=== PATIENT | female | born 1950 | race Caucasian/White ===

== ENCOUNTER 2016-08-28 07:12 | Inpatient (IN) ==
[2016-08-28] MEDS ORDERED: Ipratropium/Albuterol Neb 3 ML IH ONE (07:31)
[2016-08-28] MEDS ORDERED: Dexamethasone 4 MG/ML VIAL IVP ONE (07:39)
[2016-08-28 08:00] LABS: Basophils % 0.6 %; Eosinophils # 0.1 K/mcL (0.0-0.6); Eosinophils % 1.3 %; Hematocrit 39.7 % (35.3-44.9); Hemoglobin 12.2 g/dL (11.5-15.4); Immature Granulocytes % 0.4 % (0-4); Immature Platelets 7.7 % (1.1-6.1); Lymphocytes # 0.7 K/mcL (0.6-4.6); Mean Corpuscular HGB Conc 30.7 g/dL (31.6-35.5); Mean Corpuscular Hemoglobin 24.4 pg (28.0-33.3); Mean Corpuscular Volume 79.4 fL (83.0-100.0); Mean Platelet Volume 11.9 fL (9.4-12.4); Monocytes # 0.6 K/mcL (0.0-1.3); Neutrophils # 3.3 K/mcL (1.6-8.9); Platelet Count 151 K/mcL (140-400); Red Cell Distribution Width 15.7 % (11.5-14.5); Segmented Neutrophils % 70.7 %
[2016-08-28 08:05] LABS: INR 1.2; Prothrombin Time 12.5 Seconds (9.4-12.1)
[2016-08-28 08:08] LABS: Activated Partial Thrombo Time 27.3 Seconds (26.0-36.0)
[2016-08-28 08:10] LABS: BUN/Creatinine Ratio 11 (6-26); Blood Urea Nitrogen 8 mg/dL (7-20); Calcium 9.2 mg/dL (8.6-10.8); Carbon Dioxide 27 mEq/L (19-29); Chloride 92 mEq/L (98-109); Glucose 195 mg/dL (70-99); Osmolality,Calculated 268 (280-300); Potassium 4.5 mEq/L (3.5-4.5); Sodium 127 mEq/L (136-145); eGFR For African Americans > 60 (> 60); eGFR For Non-African Americans > 60 (> 60)
--- NOTE | 2016-08-28 08:23 | Emergency Department Note ---
Disposition Clinical Impression: Acute exacerbation of chronic obstructive airways disease Disposition: Admitted As Inpatient Condition: Fair Referrals: Rosa Whitt CNP [Primary Care Provider] - Forms: ED Satisfaction Letter SOB HPI - General Chief Complaint: ED Shortness of Breath/Dyspnea Stated Complaint: CHAITANYA/Chest Pain Source: patient, EMS Limitations: no limitations Nursing Notes Reviewed: Yes Vital Signs Reviewed: Yes - History of Present Illness Patient is a 65-year-old elderly white female who is brought to us by EMS this morning for complaints of gradually worsening shortness of breath. Patient states that she started with some mild upper respiratory symptoms including nasal congestion and nonproductive occasional cough about 5 days ago. Patient states since that time she has had gradually worsening shortness of breath increased wheezing has been using her inhalers more frequently and then this morning just felt lightheaded with standing and ambulating in association with worsening shortness of breath. Patient states she has had fleeting intermittent substernal chest discomfort at times over the past 4 days. Patient states the pain last for seconds and is usually generalized in nature and nonradiating not associated with any diaphoresis, nausea, vomiting, abdominal pain or flank pain. Patient is on home O2 at home anywhere from 3-4 L at all times. Patient was hypoxic on arrival at 84% but placed on her home O2 by nasal cannula and is saturating at 93 and 94% currently. Patient with mild increased work of breathing and some conversational dyspnea at bedside. Patient denies any history of congestive heart failure, but states that she has had a heart attack in the past. Currently patient denies any form of chest pain or pressure at this time. Patient denies any fevers or chills associated with her shortness of breath this week. Patient was not seen by her primary care physician and has not been on outpatient medications for her symptoms. Pt Subjective Complaint: shortness of breath, chest pain Onset (ago): day(s) (4) Context: recent illness (recent preceding URI 5 d ago) Severity: moderate Consistency/Duration: constant Improves with: oxygen - Related Data Previous Rx's Medication Instructions Recorded Azithromycin [Zithromax] 250 mg PO DAILY #6 tablet 01/11/15 PredniSONE [Prednisone] 10 mg PO 1-3XD #18 tablet 01/11/15 Allergies Allergy/AdvReac Type Severity Reaction Status Date / Time Hydromorphone [From Dilaudid] Allergy Itching Verified 01/11/15 12:34 All systems ED: reviewed and negative except as stated. Constitutional: Denies: fever, chills Cardiovascular: Reports: chest pain, dyspnea on exertion. Denies: palpitations , orthopnea, syncope, paroxysmal nocturnal dyspnea Respiratory: Reports: cough, dyspnea, wheezes. Denies: hemoptysis, stridor, sputum production Gastrointestinal: Denies: abdominal pain, nausea, vomiting, diarrhea Genitourinary: Denies: urgency, dysuria, frequency Musculoskeletal: Denies: back pain, neck pain Integumentary: Denies: rash Neurological: Denies: headache, weakness, numbness, paresthesias Psychiatric: Denies: anxiety, depression Hematological/Lymphatic: Denies: easy bleeding, easy bruising Allergic/Immunologic: Denies: facial swelling, urticaria Past Medical History - Past Medical History Medical history: Reports: COPD, diabetes, hypertension, myocardial infarction Surgical history: Reports: cholecystectomy Psychiatric history: Reports: no psych history - Social History Smoking Status: Former smoker Smokeless Tobacco Status: No Alcohol use: Reports: rarely, occasionally Drug use: Reports: none Physical Exam - General Limitations: no limitations General appearance: alert (Patient with mild respiratory distress or conversational dyspnea on exam.) - Head Head exam: atraumatic, normocephalic - Eye Eye exam: Present: normal appearance, PERRL, EOMI - ENT ENT exam: normal exam, normal oropharynx, mucous membranes moist - Neck Neck exam: Present: normal inspection, full ROM. Absent: lymphadenopathy - Chest Chest inspection: Present: normal inspection, symmetric chest wall rise, tenderness - Respiratory Respiratory exam: Present: other (Course breath sounds throughout both lung plasencia bilaterally with some faint expiratory wheezing.) - Cardiovascular Cardiovascular exam: Present: regular rate, normal rhythm, normal heart sounds - Abdominal Exam Abdominal exam: Present: soft, Non-Tender, normal bowel sounds. Absent: guarding, rebound, rigidity - Rectal Exam Rectal exam: Present: deferred - Extremities Exam Extremities exam: Present: normal inspection, full ROM, normal capillary refill. Absent: tenderness, pedal edema - Back Exam Back exam: Present: normal inspection. Absent: CVA tenderness (R), CVA tenderness (L) - Neurological Exam Neurological exam: Present: alert, oriented X3, CN II-XII intact, reflexes normal. Absent: normal gait, motor sensory deficit - Psychiatric Psychiatric exam: Present: normal affect, normal mood - Skin Skin exam: Present: warm, dry. Absent: diaphoresis Course Course Narrative: Patient was initially placed on nasal cannula oxygen at her home O2 level on arrival. Her oxygen saturation increased from 84% to 93% with decreased work of breathing. Patient with some conversational dyspnea but can speak in full sentences. Patient denies any chest discomfort on arrival complaining of shortness of breath and nonproductive cough that worsened over the past 4 days. Patient afebrile and her blood pressure and heart rate are stable on initial assessment. Initiation of portal chest x-ray, breathing treatments and steroids , and lab evaluation initiated. Vital Signs Temperature 98.4 F 08/28/16 07:14 Pulse Rate 82 08/28/16 07:14 Respiratory Rate 20 08/28/16 07:14 Blood Pressure 158/71 08/28/16 07:14 O2 Sat by Pulse Oximetry 84 L 08/28/16 07:14 Temperature 98.4 F 08/28/16 07:14 Pulse Rate 78 08/28/16 08:30 Respiratory Rate 18 08/28/16 08:30 Blood Pressure 163/90 08/28/16 08:30 O2 Sat by Pulse Oximetry 98 08/28/16 08:30 Oxygen Delivery Oxygen Delivery Nasal Cannula Shortness of Breath/Dyspnea - MDM Narrative Medical decision making narrative: Following serial aerosols and steroids in the emergency department patient is much improved at this time. Patient right now has resolution of her conversational dyspnea, O2 sats are 95-96% on home O2 levels. Patient still denying any chest pain or discomfort at this time and is resting more comfortably. I did cover the patient with a dose of IV Levaquin and will admit to the hospitalist service for acute exacerbation of COPD. Chest x-ray is clear no evidence of infiltrates or pulmonary edema. Remainder of labs including a troponin is within normal limits. Patient is clinically improved at this time. Discussed with family at bedside plan to admit patient for further evaluation and treatment. Laboratory Results WBC 4.7 K/mcL (4.3-11.1) 08/28/16 07:51 RBC 5.00 M/mcL (3.82-4.97) H 08/28/16 07:51 Hgb 12.2 g/dL (11.5-15.4) 08/28/16 07:51 Hct 39.7 % (35.3-44.9) 08/28/16 07:51 MCV 79.4 fL (83.0-100.0) L 08/28/16 07:51 MCH 24.4 pg (28.0-33.3) L 08/28/16 07:51 MCHC 30.7 g/dL (31.6-35.5) L 08/28/16 07:51 RDW 15.7 % (11.5-14.5) H 08/28/16 07:51 Plt Count 151 K/mcL (140-400) 08/28/16 07:51 MPV 11.9 fL (9.4-12.4) 08/28/16 07:51 Immature Gran % 0.4 % (0-4) 08/28/16 07:51 Seg Neutrophils % 70.7 % 08/28/16 07:51 Lymphocytes % 14.0 % 08/28/16 07:51 Monocytes % 13.0 % 08/28/16 07:51 Eosinophils % 1.3 % 08/28/16 07:51 Basophils % 0.6 % 08/28/16 07:51 Neutrophils # 3.3 K/mcL (1.6-8.9) 08/28/16 07:51 Lymphocytes # 0.7 K/mcL (0.6-4.6) 08/28/16 07:51 Monocytes # 0.6 K/mcL (0.0-1.3) 08/28/16 07:51 Eosinophils # 0.1 K/mcL (0.0-0.6) 08/28/16 07:51 Basophils # 0.0 K/mcL (0.0-0.2) 08/28/16 07:51 Immature Plt Fraction 7.7 % (1.1-6.1) H 08/28/16 07:51 PT 12.5 Seconds (9.4-12.1) H 08/28/16 07:51 INR 1.2 08/28/16 07:51 APTT 27.3 Seconds (26.0-36.0) 08/28/16 07:51 Sodium 127 mEq/L (136-145) L 08/28/16 07:51 Potassium 4.5 mEq/L (3.5-4.5) 08/28/16 07:51 Chloride 92 mEq/L (98-109) L 08/28/16 07:51 Carbon Dioxide 27 mEq/L (19-29) 08/28/16 07:51 BUN 8 mg/dL (7-20) 08/28/16 07:51 Creatinine 0.75 mg/dL (0.57-1.11) 08/28/16 07:51 Est GFR ( Amer) > 60 (> 60) 08/28/16 07:51 Est GFR (Non-Af Amer) > 60 (> 60) 08/28/16 07:51 BUN/Creatinine Ratio 11 (6-26) 08/28/16 07:51 Glucose 195 mg/dL (70-99) H 08/28/16 07:51 Calculated Osmolality 268 (280-300) L 08/28/16 07:51 Lactic Acid 0.8 mmol/L (0.5-2.2) 08/28/16 08:00 Calcium 9.2 mg/dL (8.6-10.8) 08/28/16 07:51 Troponin I 0.01 ng/mL (0-0.03) 08/28/16 07:51 B-Natriuretic Peptide 97 pg/mL (0-100) 08/28/16 07:51 Impressions Chest X-Ray 08/28/16 07:31 IMPRESSION: Hypoaeration with no acute abnormality. D/ / Raphael Meier MD / Raphael Meier MD Interpreting Provider: Raphael Meier MD - Differential Diagnosis Likely: acute exacerbation of chronic obstructive airways disease, congestive heart failure, pneumonia, arrhythmia - Medical Records Medical records reviewed: Yes I reviewed the patient's medical records. - Lab Data Lab results reviewed: Yes I reviewed the patient's lab results. Result diagrams: 08/28/16 07:51 08/28/16 07:51 Lab Results 08/28/16 08/28/16 08/28/16 Range/Units 07:51 07:51 07:51 WBC 4.7 (4.3-11.1) K/mcL RBC 5.00 H (3.82-4.97) M/mcL Hgb 12.2 (11.5-15.4) g/dL Hct 39.7 (35.3-44.9) % MCV 79.4 L (83.0-100.0) fL MCH 24.4 L (28.0-33.3) pg MCHC 30.7 L (31.6-35.5) g/dL RDW 15.7 H (11.5-14.5) % Plt Count 151 (140-400) K/mcL MPV 11.9 (9.4-12.4) fL Immature Gran % 0.4 (0-4) % Seg Neutrophils % 70.7 % Lymphocytes % 14.0 % Monocytes % 13.0 % Eosinophils % 1.3 % Basophils % 0.6 % Neutrophils # 3.3 (1.6-8.9) K/mcL Lymphocytes # 0.7 (0.6-4.6) K/mcL Monocytes # 0.6 (0.0-1.3) K/mcL Eosinophils # 0.1 (0.0-0.6) K/mcL Basophils # 0.0 (0.0-0.2) K/mcL Immature Plt Fraction 7.7 H (1.1-6.1) % PT 12.5 H (9.4-12.1) Seconds INR 1.2 APTT 27.3 (26.0-36.0) Seconds Sodium 127 L (136-145) mEq/L Potassium 4.5 (3.5-4.5) mEq/L Chloride 92 L (98-109) mEq/L Carbon Dioxide 27 (19-29) mEq/L BUN 8 (7-20) mg/dL Creatinine 0.75 (0.57-1.11) mg/dL Est GFR ( Amer) > 60 (> 60) Est GFR (Non-Af Amer) > 60 (> 60) BUN/Creatinine Ratio 11 (6-26) Glucose 195 H (70-99) mg/dL Calculated Osmolality 268 L (280-300) Lactic Acid (0.5-2.2) mmol/L Calcium 9.2 (8.6-10.8) mg/dL Troponin I (0-0.03) ng/mL B-Natriuretic Peptide (0-100) pg/mL 08/28/16 08/28/16 08/28/16 Range/Units 07:51 07:51 08:00 WBC (4.3-11.1) K/mcL RBC (3.82-4.97) M/mcL Hgb (11.5-15.4) g/dL Hct (35.3-44.9) % MCV (83.0-100.0) fL MCH (28.0-33.3) pg MCHC (31.6-35.5) g/dL RDW (11.5-14.5) % Plt Count (140-400) K/mcL MPV (9.4-12.4) fL Immature Gran % (0-4) % Seg Neutrophils % % Lymphocytes % % Monocytes % % Eosinophils % % Basophils % % Neutrophils # (1.6-8.9) K/mcL Lymphocytes # (0.6-4.6) K/mcL Monocytes # (0.0-1.3) K/mcL Eosinophils # (0.0-0.6) K/mcL Basophils # (0.0-0.2) K/mcL Immature Plt Fraction (1.1-6.1) % PT (9.4-12.1) Seconds INR APTT (26.0-36.0) Seconds Sodium (136-145) mEq/L Potassium (3.5-4.5) mEq/L Chloride (98-109) mEq/L Carbon Dioxide (19-29) mEq/L BUN (7-20) mg/dL Creatinine (0.57-1.11) mg/dL Est GFR ( Amer) (> 60) Est GFR (Non-Af Amer) (> 60) BUN/Creatinine Ratio (6-26) Glucose (70-99) mg/dL Calculated Osmolality (280-300) Lactic Acid 0.8 (0.5-2.2) mmol/L Calcium (8.6-10.8) mg/dL Troponin I 0.01 (0-0.03) ng/mL B-Natriuretic Peptide 97 (0-100) pg/mL - Radiology Data Radiology results reviewed: Yes I reviewed the patient's radiology results. - EKG Data EKG attestation: Yes I reviewed and interpreted this EKG. EKG results narrative: EKG interpreted by myself without benefit of formal cardiology interpretation showing a normal sinus rhythm at [address] or T-wave changes appreciated, some nonspecific changes are noted. Prior EKG from 01/11/2015 shows no significant change from today's EKG Critical Care Time Critical Care Time: Yes Total Critical Care Time: 30 Attestation: The high probability of a clinically significant, sudden or life threatening deterioration of the [resp] system(s) required my full and direct attention, intervention and personal management. The aggregate critical care time was [30] minutes. This time is in addition to time spent performing reported procedures but includes the following: [X] Data Review and interpretation [X] Patient assessment and monitoring of vital signs [X] Documentation [X] Medication orders and management
[2016-08-28] MEDS ORDERED: Albuterol 2.5 MG/3 ML NEBULIZER IH ONE (08:30)
[2016-08-28] MEDS ORDERED: Levofloxacin 500 MG/100 ML 500 MG/100 ML BAG IVPB ONE (09:09)
[2016-08-28] MEDS ORDERED: Naloxone 0.4 MG/ML INJ IVP PRN (11:27)
[2016-08-28] MEDS ORDERED: Albuterol 2.5 MG/3 ML NEBULIZER IH PRN (11:31)
[2016-08-28] MEDS ORDERED: *HR* Dextrose 50 % in Water (Syg) 50 ML SYRINGE IVP PRN (11:33)
[2016-08-28] MEDS ORDERED: Dextrose Gel 15 GM PO PRN ×2 (11:33)
[2016-08-28] MEDS ORDERED: Furosemide 40 MG/4 ML VIAL IVP ONE (14:41)
[2016-08-28 15:21] LABS: Bilirubin,Urine Small (Negative); Blood,Urine Negative (Negative); Clarity,Urine Cloudy (Clear); Color,Urine Yellow (Yellow); Glucose,Urine (UA) 250 mg/dL (Normal); Ketones,Urine Trace mg/dL (Negative); Leukocyte Esterase,Urine Moderate (Negative); Nitrite,Urine Negative (Negative); Protein,Urine 30 mg/dL (Neg-Trace); Specific Gravity,Urine 1.025 (1.010-1.025); Urobilinogen,Urine Normal (Normal)
[2016-08-28 15:22] LABS: Bacteria,Urine Few per hpf (None-Few); Squamous Epithelial Cell,Urine Many per lpf (None-Few); WBC,Urine 50-100 per hpf (0-3)
[2016-08-28 15:27] LABS: RBC,Urine 0-3 per hpf (0-3)
[2016-08-28 15:29] LABS: Creatinine,Urine 172 mg/dL
[2016-08-28 15:31] LABS: Sodium, Urine < 20.0 mEq/L
[2016-08-28] MEDS: MethylPREDNISolone 40 MG/ML VIAL IVP SCH ×2 (15:38→23:21)
[2016-08-28 15:49] LABS: Osmolality,Urine 647 mOsm/kg (300-1090)
[2016-08-28] MEDS: Ipratropium/Albuterol Neb 3 ML IH SCH ×2 (16:11→23:04)
[2016-08-28] MEDS: Insulin LISPRO 300 UNITS/3 ML VIAL SQ SCH ×2 (16:56→20:53)
--- NOTE | 2016-08-28 19:07 | Internal Med History&Physical ---
Date of Encounter: 08/28/16 Time of Encounter: 10:00 Assessment and Plan (1) Acute and chronic respiratory failure with hypoxia Current visit: Yes Status: Acute 1 patient presented with increasing shortness of breath upon presentation patient's was 84%. The patient was placed on oxygen and states he did improve she appeared to be to In mild respiratory distress. She was given breathing treatments as well as IV steroids arrest or status did improve. Patient has had symptoms of upper respiratory infection as well as been exposed to sick contacts. Patient has also history of CHF as well as COPD oxygen dependency. I suspect her respiratory failure is multifactorial with both CHF and COPD contributing to her failure. We will continue with oxygen and titrate to maintain SPO2 greater than 92% 2 continue with bronchodilators as well as steroids will continue with IV Levaquin 3 we will obtain sputum culture as well as viral panel 4. IV Lasix (2) Hyponatremia Current visit: Yes Status: Acute 1. Hypertonic hypervolemic hyponatremia The patient's sodium was 127 presentation. Upon review of records appears patient's baseline is 135. I suspect this is related to fluid overload she does have a history of CHF. Patient's serum os is 285 urine on 697 urine sodium is less than 20. Will place patient on fluid restrictions 1500 mL's we will give IV Lasix we will continue to monitor sodium levels there are no neurological changes at this time (3) CHF (congestive heart failure) Current visit: Yes Status: Acute 1 patient does have a history of congestive heart failure her BMP was 97 she is not having any lower extremity edema however she has complained of abdominal bloating. We will obtain cardiac echo will place patient on fluid restriction 2 we will give IV Lasix 3 monitor intake and output 4 daily weights Qualifiers: Congestive heart failure type: diastolic Congestive heart failure chronicity: chronic Qualified Code(s): I50.32 - Chronic diastolic (congestive ) heart failure (4) Diabetes mellitus Current visit: Yes Status: Acute 1 patient has history of diabetes she is on oral antidiabetics at home. We will hold those for now will place patient on Accu-Cheks before meals and at bedtime with sliding scale insulin goal is to maintain postprandial less than 180 2 diabetic diet Qualifiers: Diabetes mellitus type: type 2 Diabetes mellitus complication status: without complication Diabetes mellitus mcc insulin use: without moth exterminator use Qualified Code(s): E11.9 - Type 2 diabetes mellitus without complications (5) Chest pain Current visit: Yes Status: Acute 1 patient has been experiencing intermittent chest pain which appears to be relieved with rest. First set of cardiac troponins are negative patient did have a cardiac stress last year however was unable to complete due to increasing shortness of breath. We will continue to cycle cardiac troponins 2 continuous cardiac monitoring and obtain EKG in a.m. 3 oxygen as needed to maintain SP tube remained in 92% 4 nitroglycerin as needed for chest pain 5 obtain cardiac echo 6 consult cardiology as needed Qualifiers: Chest pain type: unspecified Qualified Code(s): R07.9 - Chest pain, unspecified (6) DVT prophylaxis Current visit: Yes Status: Acute (7) COPD (chronic obstructive pulmonary disease) Current visit: Yes Status: Acute 1 patient has history of chronic COPD with oxygen dependency. We will continue with oxygen titrated to maintain SPO2 greater than 92% 2 continue with DuoNeb's 3 steroid taper 4 Levaquin Qualifiers: COPD type: unspecified COPD Qualified Code(s): J44.9 - Chronic obstructive pulmonary disease, unspecified Internal Medicine - H&P: HPI Chief complaint: Shortness of breath Admitted From: Emergency Dept Plans for Post Hospital Care: Home History of present illness: Ms. Panchal is a 65 year old female past history of COPD oxygen dependent. coronary artery disease diabetes hyperlipidemia CHF. Patient has had some mild upper respiratory symptoms including nasal congestion and nonproductive cough and increasing shortness of breath on exertion for proximally 5 days. She does admit to some sick exposures she denies any fevers chills nausea vomiting or diarrhea. Her shortness of breath has gradually worsened and is not relieved with any inhalers or oxygen use use. This a.m. she felt lightheaded short of breath on exertion. She did experience some intermittent substernal chest pain that occurred during exertion. No associated symptoms of diaphoresis and jaw pain. Patient presented to the ER with the above symptoms. According to ER records patient did present hypoxic with PO2 84% on arrival. She was placed on nasal cannula at 3 L oxygen saturation improved to 9394%. She did appear to be in mild respiratory distress and was experiencing conversational dyspnea. Chest x-ray is clear with no evidence of infiltrates or pulmonary edema. Lab work revealed no leukocytosis troponin was within normal limits she was afebrile. Patient was given breathing treatments as well as steroids and IV Levaquin. Her respiratory status did improve. She is admitted for further work up evaluation. Presently patient does not appear to be in some mild respiratory distress again presents with conversational dyspnea O2 sats are 9495% on 3 L nasal cannula she does have some moist breath sounds and a moist nonproductive cough. Denies any chest pain at this time Patient denies any recent weight gain or loss. She also denies any lower extremity swelling however her abdomen does appear bloated which she states is new. Lung sounds have coarse rhonchi throughout heart sounds with S1-S2 regular rate no gallops murmur or clicks noted she appears to be hemodynamically stable at this time. I did review this case with who agrees with plan. Past Med Surg Social Fam HX - Past Medical History Medical history: COPD, diabetes, hypertension, myocardial infarction Psychiatric history: no psych history - Past Surgical History Surgical History: cholecystectomy - Social History Smoking Status: Former smoker Smokeless Tobacco Status: No Alcohol use: rarely, occasionally Drug use: none - Family History Father Maternal Hx Family Cancer: Yes Internal Medicine - H&P: Meds Albuterol Sulfate [Ventolin Hfa] 2 puff IH Q4H PRN 08/28/16 [History] Ferrous Sulfate [Iron] 325 mg PO DAILY 08/28/16 [History] Fluticasone/Salmeterol [Advair 250-50 Diskus] 1 puff IH BID 08/28/16 [History] Folic Acid 1 mg PO DAILY 08/28/16 [History] Lisinopril [Zestril] 20 mg PO DAILY 08/28/16 [History] Metformin HCl [Metformin HCl ER] 500 mg PO DAILY 08/28/16 [History] Umeclidinium Ruby [Incruse Ellipta] 1 puff IH DAILY 08/28/16 [History] Allergies Hydromorphone [From Dilaudid] Allergy (Verified 01/11/15 12:34) Itching All Systems PM: A 10-system review of systems was performed and is negative for pertinent findings except as documented above in the HPI. - Constitutional Constitutional: weakness, no chills, no fever(s), no night sweats - EENT Eyes: no change in vision, no discharge, no pain, no photophobia - Cardiovascular Cardiovascular ROS IM: chest pain, dyspnea - Respiratory Respiratory: cough, dyspnea - Gastrointestinal Gastrointestinal: bloating - Genitourinary Genitourinary: no change in urinary stream, no dysuria, no flank pain, no hematuria - Musculoskeletal Musculoskeletal ROS IM: no numbness, no tingling - Integumentary Integumentary IM: no rash, no unusual bruising - Neurological Neurological ROS: no confusion, no convulsions, no focal weakness, no numbness, no tingling, no tremor(s) - Hematologic/Lymphatic Hematologic/Lymphatic: no easy bruising - Constitutional Vitals: Temp Pulse Resp BP Pulse Ox 98.3 F 68 18 142/83 95 08/28/16 15:07 08/28/16 15:07 08/28/16 16:11 08/28/16 16:11 08/28/16 16:11 General appearance: Present: mild distress, A&O X 3, morbidly obese - Head Head exam: Present: atraumatic, normocephalic - Eye Eye exam: Present: PERRL, conjuntiva pink, sclera anicteric Pupils: Present: PERRL - Respiratory Respiratory exam: Present: CTAB. Absent: accessory muscle use, rales, rhonchi, wheezes - Cardiovascular Cardiovascular exam: Present: RRR, +S1, +S2. Absent: diastolic murmur, gallop, rubs, systolic murmur - GI/Abdominal GI/Abdominal exam: Present: normal bowel sounds, soft, no peritoneal signs. Absent: distended, tenderness - Extremities Exam Extremities exam: Present: warm, radial pulses palpable and symetrical. Absent : calf tenderness, cyanotic, pedal edema - Neurological Exam Neurological exam: Present: CN II-XII intact, oriented X3, no focal deficits. Absent: pronater drift, facial droop, speech deficit - Skin Skin exam: Present: dry, intact Internal Med - H&P Results - Labs CBC & Chem 7: 08/28/16 07:51 08/28/16 07:51 Labs: Cardiac Enzymes 08/28/16 Range/Units 13:45 Troponin I 0.02 (0-0.03) ng/mL Urine 08/28/16 Range/Units 15:10 Urine Color Yellow (Yellow) Urine Clarity Cloudy A (Clear) Urine pH 6.0 (5.0-8.0) pH Units Ur Specific [place] 1.025 (1.010-1.025) Urine Protein 30 H (Neg-Trace) mg/dL Urine Glucose (UA) 250 H (Normal) mg/dL - EKG Data EKG shows normal: sinus rhythm Rate: normal - EKG Data Prior EKG available for review: yes When compared to previous EKG: there is no significant change - Diagnostic Studies Other Images Additional comments: Chest X-Ray 08/28/16 07:31 IMPRESSION: Hypoaeration with no acute abnormality. D/ / Raphael Meier MD / Raphael Meier MD Interpreting Provider: Raphael Meier MD - VTE Documentation of Mechanical Device: Intermittent pneumatic compression device
[2016-08-28 20:34] LABS: Adenovirus Not Detected (Not Detect); Bordetella Pertussis Not Detected (Not Detect); Chlamydophila pneumoniae Not Detected (Not Detect); Coronavirus 229E Not Detected (Not Detect); Coronavirus HKU1 Not Detected (Not Detect); Coronavirus NL63 Not Detected (Not Detect); Coronavirus OC43 Not Detected (Not Detect); Human Metapneumovirus Not Detected (Not Detect); Human Rhinovirus/Enterovirus Not Detected (Not Detect); Influenza A Subtype 2009 H1 Not Detected (Not Detect); Influenza A Untypeable Not Detected (Not Detect); Influenza B Not Detected (Not Detect); Mycoplasma pneumoniae Not Detected (Not Detect); Parainfluenza Virus 1 Not Detected (Not Detect); Parainfluenza Virus 2 Not Detected (Not Detect); Parainfluenza Virus 3 Not Detected (Not Detect); Parainfluenza Virus 4 Not Detected (Not Detect); Respiratory Syncytial Virus Not Detected (Not Detect)
[2016-08-29] MEDS: Ipratropium/Albuterol Neb 3 ML IH SCH ×4 (05:17→22:39)
[2016-08-29 07:49] LABS: Hematocrit 39.3 % (35.3-44.9); Hemoglobin 11.8 g/dL (11.5-15.4); Immature Granulocytes % 0.3 % (0-4); Immature Platelets 7.9 % (1.1-6.1); Lymphocytes # 0.3 K/mcL (0.6-4.6); Lymphocytes % 9.9 %; Mean Corpuscular Hemoglobin 24.4 pg (28.0-33.3); Mean Corpuscular Volume 81.2 fL (83.0-100.0); Mean Platelet Volume 11.5 fL (9.4-12.4); Monocytes # 0.2 K/mcL (0.0-1.3); Monocytes % 6.4 %; Neutrophils # 2.9 K/mcL (1.6-8.9); Platelet Count 183 K/mcL (140-400); Red Blood Count 4.84 M/mcL (3.82-4.97); Red Cell Distribution Width 15.3 % (11.5-14.5); Segmented Neutrophils % 83.4 %
[2016-08-29] MEDS ORDERED: INCRUSE ELLIPTA IH SCH (09:00)
[2016-08-29] MEDS ORDERED: Lisinopril 20 MG TABLET PO SCH (09:00)
[2016-08-29 09:07] LABS: BUN/Creatinine Ratio 17 (6-26); Blood Urea Nitrogen 16 mg/dL (7-20); Calcium 9.4 mg/dL (8.6-10.8); Carbon Dioxide 32 mEq/L (19-29); Chloride 91 mEq/L (98-109); Chol/HDL Ratio 5.3 (0-4.9); Cholesterol 171 mg/dL (< 200); Glucose 242 mg/dL (70-99); HDL Cholesterol 32 mg/dL (40-59); LDL Cholesterol,Calculated 122 mg/dL (0-99); Osmolality,Calculated 279 (280-300); Potassium 5.3 mEq/L (3.5-4.5); Sodium 130 mEq/L (136-145); Triglycerides 87 mg/dL (< 150); eGFR For African Americans > 60 (> 60); eGFR For Non-African Americans 59 (> 60)
[2016-08-29] MEDS: Insulin LISPRO 300 UNITS/3 ML VIAL SQ SCH ×4 (11:19→22:01)
[2016-08-29] MEDS: Levofloxacin 750 MG/150 ML 750 MG/150 ML BAG IVPB SCH ×2 (11:22→15:51)
[2016-08-29] MEDS: MethylPREDNISolone 40 MG/ML VIAL IVP SCH ×2 (11:22→11:45)
[2016-08-29] MEDS: Folic Acid 1 MG TABLET PO SCH (11:23)
[2016-08-29] MEDS: Budesonide/Formoterol 80/4.5 MDI IH SCH ×3 (15:30→22:40)
[2016-08-29] MEDS: Furosemide 40 MG/4 ML VIAL IVP SCH (15:50)
--- NOTE | 2016-08-29 17:16 | ECHO - Doppler Report ---
Echocardiogram Name: Lacey Panchal Date of Study: 08/29/2016 Date: 1950 Ht: 64.0 in Medical Record#: [id number] Age: 65 Wt: 265.0 lb Gender: Female BSA: 2.2 Order #: [id number] Location: [facility] Room #: [facility] Reading Physician: Rodríguez Perez MD, [facility] Legal Coordinator: Ghada Monge RVT Ordering Physician: Kimberley Cisneros CNP Primary Physician: Rosa Whitt CNP Indications: Chest pain Impressions: Technically sub-optimal due to poor echocardiographic windows. Normal left ventricular systolic function, LVEF 70%. Mild left ventricular diastolic dysfunction. Normal right ventricular size and function. No significant valvular dysfunction. Unable to estimate RVSP due to lack of TR jet. Left Ventricular Wall Motion: Rest Echo Findings All wall segments showed normal motion. Findings: Study Quality * Technically sub-optimal due to poor echocardiographic windows. ECG Findings * Normal sinus rhythm. Left Ventricle * Normal left ventricular systolic function, LVEF 70%. * Normal LV chamber size and wall thickness. * Mild left ventricular diastolic dysfunction. Right Ventricle * Normal right ventricular size and function. Left Atrium * Normal left atrial size. Right Atrium * Normal right atrial size. Aorta * Normally sized aortic root. Pericardium * There is no pericardial effusion present. IVC * The IVC was not visualized. Aortic Valve * Trileaflet aortic valve. * Mildly sclerotic aortic valve leaflets. * Normal aortic valve function. Mitral Valve * Mild mitral annular calcification * Normal mitral valve function. Tricuspid Valve * Tricuspid valve not well visualized. * Normal tricuspid valve function. * Unable to estimate RVSP due to lack of TR jet. Pulmonic Valve * Pulmonic valve not well visualized. * Normal pulmonic valve function. History Hypertension Diabetes Hypercholesteremia Family History of CAD 01/02/2016 a Previous Echo was performed. Measurements: BP: 123/ 83 2D Normal Values RVIDd: 3.50 cm IVSd: .90 cm 0.6 - 1.0 cm LVIDd: 4.40 cm 3.7 - 5.6 cm LVPWd: .90 cm 0.6 - 1.1 cm LVIDs: 2.50 cm 1.5 - 3.6 cm AO: 3.30 cm < 4.0 cm LA volume: 31 Mitral Valve Peak E:.77 m/sec Peak A:.95 m/sec E/A Ratio:0.8 Updated by Rodríguez Perez MD, [facility] on 08/29/2016 5:10:07 PM electronically signed on 08/29/2016 5:10:40 PM with status of Final Wall Motion [place]: 1=Normal, 2=Hypokinesis, 3=Akinesis, 4=Dyskinesis, 5=Aneurysmal, 6=Hyperkinetic, X=Not Visualized (Blank)=Missing
--- NOTE | 2016-08-29 18:21 | Internal Med Progress Note ---
Date of Encounter: 08/29/16 Time of Encounter: 11:00 - Assessment and plan (1) Acute and chronic respiratory failure with hypoxia Current Visit: Yes Status: Acute Assessment and plan: Secondary to COPD exacerbation in the setting of suspected OSMAN/OHS. Patient presented with increasing shortness of breath and SaO2 in ED was 84%. She uses 2 L of oxygen at home. Chest x-ray was negative for any acute process. Echocardiogram revealed LVEF 70%, mild LV diastolic dysfunction, unable to estimate RSVP. Influenza A PCR was positive in serum. Troponin negative 2. Slowly improving. Continue nebulizations, stop IV Solu-Medrol, start oral prednisone, Symbicort, lasix and fluid restriction. continue levaquin until results of CT chest. (2) Acute exacerbation of chronic obstructive airways disease Current Visit: Yes Status: Acute Assessment and plan: plan as above. (3) Acute diastolic heart failure Current Visit: Yes Status: Acute Assessment and plan: plan as above. (4) Diabetes mellitus Current Visit: Yes Status: Acute Assessment and plan: Fasting glucose 228, likely secondary to IV glucocorticosteroids. Stop IV Solu- Medrol. Start Levemir 10 units daily. Continue sliding scale. 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 Hypervolemic hyponatremia. Sodium today is 130. Improved after IV Lasix. (6) Hyperkalemia Current Visit: Yes Status: Acute Assessment and plan: Positive for diarrhea, use of lisinopril, Solu-Medrol Stop Kayexalate 15 g by mouth. Stop lisinopril. Recheck potassium in the afternoon. - Subjective Interval history: patient continues to have shortness of breath but it has improved since admission. - Constitutional Vitals: Temp Pulse Resp BP Pulse Ox 99.0 F 86 18 118/61 95 08/29/16 17:23 08/29/16 17:23 08/29/16 17:23 08/29/16 17:23 08/29/16 17:23 General appearance: Present: cooperative, A&O X 3, morbidly obese, pleasant, no acute distress, answers questions appropriately - Respiratory Respiratory exam: Present: decreased breath sounds, wheezes - Cardiovascular Cardiovascular exam: Present: RRR - GI/Abdominal GI/Abdominal exam: Present: normal bowel sounds, soft. Absent: distended, tenderness - Extremities Exam Extremities exam: Present: pedal edema (1+ LE edema up to the knees) - Back Exam Back exam: Absent: CVA tenderness (L), CVA tenderness (R) - Neurological Exam Neurological exam: Present: alert, oriented X3. Absent: facial droop, speech deficit - Skin Skin exam: Absent: rash Internal Medicine: Result - Labs CBC & Chem 7: 08/29/16 07:22 08/29/16 14:15 Labs: Short CBC 08/29/16 Range/Units 07:22 WBC 3.4 L (4.3-11.1) K/mcL Hgb 11.8 (11.5-15.4) g/dL Hct 39.3 (35.3-44.9) % Plt Count 183 (140-400) K/mcL Neutrophils # 2.9 (1.6-8.9) K/mcL BMP 08/29/16 08/29/16 08:12 14:15 Sodium 130 L Potassium 5.3 H 5.2 H Chloride 91 L Carbon Dioxide 32 H BUN 16 Creatinine 0.96 Glucose 242 H Calcium 9.4 Cardiac Enzymes 08/28/16 Range/Units 20:49 Troponin I 0.01 (0-0.03) ng/mL - ABG Interpretation ABG results: PT/INR, D-dimer PT 12.5 Seconds (9.4-12.1) H 08/28/16 07:51 - VTE Documentation of Mechanical Device: Graduated compression elastic hosiery Consult Discharge Plan - Plan Referrals: Rosa Whitt, [employer] [Primary Care Provider] -
[2016-08-29] MEDS: Insulin DETEMIR 100 UNIT/ML X5UNITS SQ SCH (22:03)
[2016-08-30] MEDS: Ipratropium/Albuterol Neb 3 ML IH SCH ×4 (04:33→21:53)
--- NOTE | 2016-08-30 07:36 | Electrocardiograph Report ---
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
[2016-08-30] MEDS: Furosemide 40 MG/4 ML VIAL IVP SCH (08:15)
[2016-08-30] MEDS: Levofloxacin 750 MG/150 ML 750 MG/150 ML BAG IVPB SCH (08:15)
[2016-08-30 08:16] LABS: Calcium 9.5 mg/dL (8.6-10.8); Magnesium 1.8 mg/dL (1.6-2.6)
[2016-08-30] MEDS: Folic Acid 1 MG TABLET PO SCH (08:16)
[2016-08-30] MEDS: predniSONE 20 MG TABLET PO SCH (08:16)
[2016-08-30] MEDS: Insulin LISPRO 300 UNITS/3 ML VIAL SQ SCH ×4 (08:17→21:44)
[2016-08-30] MEDS: Budesonide/Formoterol 80/4.5 MDI IH SCH ×2 (10:16→21:53)
[2016-08-30] MEDS: Insulin DETEMIR 100 UNIT/ML X5UNITS SQ SCH (12:00)
--- NOTE | 2016-08-30 14:28 | Internal Med Progress Note ---
Date of Encounter: 08/30/16 Time of Encounter: 13:00 - Assessment and plan (1) Acute respiratory failure Current Visit: Yes Status: Acute Assessment and plan: Secondary to PNA, and COPD exacerbation in the setting of suspected OSMAN/OHS. Patient presented with increasing shortness of breath and SaO2 in ED was 84%. no oxygen at home. CT chest showed patchy areas of ground-glass opacities, suspected pneumonitis. Chest x-ray was negative for any acute process. Echocardiogram revealed LVEF 70%, mild LV diastolic dysfunction, unable to estimate RSVP. Influenza A PCR was positive in serum. Troponin negative 2. Slowly improving. PAtient requiring oxygen supplementation. Continue Levaquin, nebulizations, oral prednisone, Symbicort, and fluid restriction. stop IV lasix due to jump in creatinine. Oxygen qualification in the morning. Qualifiers: Respiratory failure complication: hypoxia Qualified Code(s): J96.01 - Acute respiratory failure with hypoxia (2) PNA (pneumonia) Current Visit: Yes Status: Acute Assessment and plan: bacterial PNA. plan as above Qualifiers: Pneumonia type: due to unspecified organism Laterality: bilateral Lung location: lower lobe of lung Qualified Code(s): J18.9 - Pneumonia, unspecified organism (3) Acute exacerbation of chronic obstructive airways disease Current Visit: Yes Status: Acute Assessment and plan: plan as above. (4) Acute diastolic heart failure Current Visit: Yes Status: Acute Assessment and plan: plan as above. (5) Diabetes mellitus Current Visit: Yes Status: Acute Assessment and plan: Fasting glucose 34. continue Levemir 10 units daily. Continue sliding scale. 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 Hypervolemic hyponatremia. Improved. Sodium 134. (7) Hyperkalemia Current Visit: Yes Status: Acute Assessment and plan: resolved. secondary to use of lisinopril, and Solu-Medro. off lisinopril. - Subjective Interval history: Patient reports some improvement in her shortness of breath. no chest pain. she does not use oxygen at home. She agrees on losing weight and having a sleep study as outpatient. - Constitutional Vitals: Temp Pulse Resp BP Pulse Ox 98.0 F 79 18 100/68 92 L 08/30/16 10:39 08/30/16 10:39 08/30/16 10:39 08/30/16 10:39 08/30/16 10:39 General appearance: Present: cooperative, A&O X 3, morbidly obese, pleasant, no acute distress, answers questions appropriately - Eye Eye exam: Present: PERRL, sclera anicteric - Respiratory Respiratory exam: Present: decreased breath sounds, wheezes (minimal wheezes) - Cardiovascular Cardiovascular exam: Present: RRR - GI/Abdominal GI/Abdominal exam: Present: distended, normal bowel sounds, soft. Absent: tenderness - Extremities Exam Extremities exam: Absent: pedal edema - Back Exam Back exam: Absent: CVA tenderness (L), CVA tenderness (R) - Neurological Exam Neurological exam: Present: alert, oriented X3, no focal deficits, strengths equal and symetr throughout. Absent: facial droop, speech deficit Internal Medicine: Result - Labs CBC & Chem 7: 08/29/16 07:22 08/30/16 06:54 Labs: BMP 08/29/16 08/30/16 14:15 06:54 Sodium 134 L Potassium 5.2 H 4.0 D Chloride 90 L Carbon Dioxide 34 H BUN 26 H D Creatinine 1.13 H Glucose 142 H Calcium 9.5 - ABG Interpretation ABG results: PT/INR, D-dimer PT 12.5 Seconds (9.4-12.1) H 08/28/16 07:51 - Impressions Impressions Chest CT 08/29/16 18:26 IMPRESSION: 1. Patchy areas of ground-glass opacities likely representing pneumonitis. D/ / Dudley Parson MD / Dudley Parson MD Interpreting Provider: Dudley Parson MD - VTE Documentation of Mechanical Device: Graduated compression elastic hosiery Consult Discharge Plan - Plan Referrals: Rosa Whitt, S[employer] PIPE [employer]KER [Primary Care Provider] -
[2016-08-30] MEDS: *HR* Heparin 5,000 UNIT/ML VIAL SQ SCH (17:39)
--- NOTE | 2016-08-30 22:57 | Electrocardiograph Report ---
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
[2016-08-31] MEDS: Ipratropium/Albuterol Neb 3 ML IH SCH ×5 (04:17→20:22)
[2016-08-31 05:23] LABS: Hematocrit 39.6 % (35.3-44.9); Hemoglobin 11.6 g/dL (11.5-15.4); Immature Granulocytes % 0.7 % (0-4); Lymphocytes # 1.3 K/mcL (0.6-4.6); Lymphocytes % 28.6 %; Mean Corpuscular HGB Conc 29.3 g/dL (31.6-35.5); Mean Corpuscular Hemoglobin 24.3 pg (28.0-33.3); Mean Platelet Volume 11.5 fL (9.4-12.4); Monocytes # 0.7 K/mcL (0.0-1.3); Monocytes % 15.3 %; Platelet Count 197 K/mcL (140-400); Red Blood Count 4.77 M/mcL (3.82-4.97); Red Cell Distribution Width 15.9 % (11.5-14.5); Segmented Neutrophils % 55.4 %
[2016-08-31 05:30] LABS: Neutrophils # 2.4 K/mcL (1.6-8.9)
[2016-08-31 05:36] LABS: BUN/Creatinine Ratio 25 (6-26); Blood Urea Nitrogen 25 mg/dL (7-20); Calcium 9.5 mg/dL (8.6-10.8); Chloride 88 mEq/L (98-109); Glucose 189 mg/dL (70-99); Osmolality,Calculated 287 (280-300); Potassium 4.2 mEq/L (3.5-4.5); Sodium 134 mEq/L (136-145); eGFR For African Americans > 60 (> 60); eGFR For Non-African Americans 55 (> 60)
[2016-08-31 05:40] LABS: Carbon Dioxide 40 mEq/L (19-29)
[2016-08-31 05:55] LABS: Platelet Estimate Normal (Normal)
[2016-08-31 05:56] LABS: Large Platelets Present (Not Present); Polychromasia 1+ (Not Present)
[2016-08-31] MEDS: *HR* Heparin 5,000 UNIT/ML VIAL SQ SCH ×2 (06:16→17:39)
[2016-08-31] MEDS: predniSONE 20 MG TABLET PO SCH (08:00)
[2016-08-31] MEDS: Folic Acid 1 MG TABLET PO SCH (08:00)
[2016-08-31] MEDS: Levofloxacin 750 MG/150 ML 750 MG/150 ML BAG IVPB SCH (08:01)
[2016-08-31] MEDS: Insulin LISPRO 300 UNITS/3 ML VIAL SQ SCH ×4 (08:02→21:27)
[2016-08-31] MEDS: Insulin DETEMIR 100 UNIT/ML X5UNITS SQ SCH (08:04)
--- NOTE | 2016-08-31 09:23 | Internal Med Progress Note ---
<Gail Barajas - Last Filed: 08/31/16 15:14> Date of Encounter: 08/31/16 Time of Encounter: 09:11 - Assessment and plan (1) Acute respiratory failure with hypoxia and hypercapnia Current Visit: Yes Status: Acute Assessment and plan: Secondary to PNA, and COPD exacerbation in the setting of suspected OSMAN/OHS. Patient presented with increasing shortness of breath and SaO2 in ED was 84%. She does not use oxygen at home. CT chest showed patchy areas of ground-glass opacities, suspected pneumonitis. Chest x-ray was negative for any acute process. Echocardiogram revealed LVEF 70%, mild LV diastolic dysfunction, unable to estimate RSVP. Influenza A PCR was positive in serum. Troponin negative 2. Patient reports she is still feeling very sob this morning and she is getting tired of breathing. She is reports chills off and on over night and this morning. Patient requiring 4L oxygen today with Sp02 97%. ABG showing respiratory acidosis with metabolic alkalosis. Will place patient on BiPAP and recheck ABG in 4 hours. Continue Levaquin(day3), will add vanc to cover for post flu Staph PNA, continue DuoNebs (will increase to Q4H), Prednisone 40mg/ day PO, Symbicort, and fluid restriction. stop IV lasix due to jump in creatinine. Oxygen qualification to be done today. (2) PNA (pneumonia) Current Visit: Yes Status: Acute Assessment and plan: Patient with CT scan suspicious for PNA. Likely post flu PNA. Plan as above. Qualifiers: Pneumonia type: due to unspecified organism Laterality: bilateral Lung location: lower lobe of lung Qualified Code(s): J18.9 - Pneumonia, unspecified organism (3) Influenza A virus present Current Visit: Yes Status: Acute Assessment and plan: plan as above (4) Acute exacerbation of chronic obstructive airways disease Current Visit: Yes Status: Acute Assessment and plan: Patient with non-productive cough, sob, wheezing. Suspect patient having COPD- Exacerbation triggered by Influenza-A. Will continue plan as above. (5) Acute diastolic heart failure Current Visit: Yes Status: Acute Assessment and plan: Patient with diastolic heart failure. Patient does not appear to be volume overloaded today. Will continue to hold lasix at this time. (6) Diabetes mellitus Current Visit: Yes Status: Acute Assessment and plan: Glucose 128-242. Continue Levemir 10 units daily with corrective sliding scale. Patient has been placed on a diabetic diet. Goal sugars <180. Qualifiers: Diabetes mellitus type: type 2 Diabetes mellitus complication status: without complication Diabetes mellitus manager intermediate insulin use: without manager intermediate use Qualified Code(s): E11.9 - Type 2 diabetes mellitus without complications (7) Hyponatremia Current Visit: Yes Status: Acute Assessment and plan: Sodium was 127 on admission, likely hypervolemic hyponatremia. Improved. Sodium stable at 134. Continue to monitor. (8) Hyperkalemia Current Visit: Yes Status: Acute Assessment and plan: resolved. secondary to use of lisinopril, and Solu-Medro. Discontinued lisinopril (9) Metabolic alkalosis Current Visit: Yes Status: Acute Assessment and plan: Patient has mixed acid/base d/o. Metabolic alkalosis and respiratory acidosis. Suspect respiratory acidosis secondary to COPD exacerbation and contraction alkalosis. Will place patient on BiPap and check ABG in 4 hours. - Subjective Interval history: I have seen and examined the patient this morning. Reports she is "feeling like crap". She says she is still very short of breath. She has also been having chills over the past 24 hours. Denies headache, cp, palpitations, abdominal pain , n/v, diarrhea, constipation, or any other complaints at this time. - Constitutional Vitals: Temp Pulse Resp BP Pulse Ox 97.7 F 78 20 134/72 97 08/31/16 06:47 08/31/16 06:47 08/31/16 06:47 08/31/16 06:47 08/31/16 06:47 General appearance: Present: cooperative, A&O X 3, morbidly obese, pleasant, no acute distress, answers questions appropriately - Head Head exam: Present: atraumatic, normocephalic - Eye Eye exam: Present: PERRL, conjuntiva pink, sclera anicteric Pupils: Present: PERRL - Neck Neck exam general surgery: Present: supple, trachea midline. Absent: lymphadenopathy - Respiratory Respiratory exam: Present: decreased breath sounds (b/l), rhonchi (b/l), wheezes (scattered). Absent: accessory muscle use, rales - Cardiovascular Cardiovascular exam: Present: RRR, +S1, +S2. Absent: diastolic murmur, gallop, rubs, systolic murmur - GI/Abdominal GI/Abdominal exam: Present: normal bowel sounds, soft, no peritoneal signs. Absent: distended, tenderness - Extremities Exam Extremities exam: Present: pedal edema (trace b/l), warm, radial pulses palpable and symetrical. Absent: calf tenderness, cyanotic - Neurological Exam Neurological exam: Present: CN II-XII intact, oriented X3, no focal deficits. Absent: pronater drift, facial droop, speech deficit - Skin Skin exam: Present: dry, intact Internal Medicine: Result - Labs CBC & Chem 7: 08/31/16 04:58 08/31/16 04:58 Labs: Short CBC 08/31/16 Range/Units 04:58 WBC 4.4 (4.3-11.1) K/mcL Hgb 11.6 (11.5-15.4) g/dL Hct 39.6 (35.3-44.9) % Plt Count 197 (140-400) K/mcL Neutrophils # 2.4 (1.6-8.9) K/mcL BMP 08/31/16 04:58 Sodium 134 L Potassium 4.2 Chloride 88 L Carbon Dioxide 40 H* BUN 25 H Creatinine 1.02 Glucose 189 H Calcium 9.5 - ABG Interpretation ABG results: PT/INR, D-dimer PT 12.5 Seconds (9.4-12.1) H 08/28/16 07:51 - VTE Documentation of Mechanical Device: Graduated compression elastic hosiery Consult Discharge Plan - Plan Referrals: Rosa Whitt, [employer]NAGERS [Primary Care Provider] - <Lady Car E - Last Filed: 08/31/16 17:46> - Assessment and plan (1) Acute respiratory failure Current Visit: Yes Status: Acute Qualifiers: Respiratory failure complication: hypoxia Qualified Code(s): J96.01 - Acute respiratory failure with hypoxia (2) PNA (pneumonia) Current Visit: Yes Status: Acute Qualifiers: Pneumonia type: due to unspecified organism Laterality: bilateral Lung location: lower lobe of lung Qualified Code(s): J18.9 - Pneumonia, unspecified organism (3) Acute exacerbation of chronic obstructive airways disease Current Visit: Yes Status: Acute (4) Acute diastolic heart failure Current Visit: Yes Status: Acute (5) Diabetes mellitus Current Visit: Yes Status: Acute Qualifiers: Diabetes mellitus type: type 2 Diabetes mellitus complication status: without complication Diabetes mellitus manager intermediate insulin use: without assisted use Qualified Code(s): E11.9 - Type 2 diabetes mellitus without complications (6) Hyponatremia Current Visit: Yes Status: Acute (7) Hyperkalemia Current Visit: Yes Status: Acute - Constitutional Vitals: Temp Pulse Resp BP Pulse Ox 99.2 F 80 19 160/82 93 L 08/31/16 14:50 08/31/16 14:50 08/31/16 16:22 08/31/16 14:50 08/31/16 17:12 Internal Medicine: Result - Labs CBC & Chem 7: 08/31/16 04:58 08/31/16 04:58 Labs: Short CBC 08/31/16 Range/Units 04:58 WBC 4.4 (4.3-11.1) K/mcL Hgb 11.6 (11.5-15.4) g/dL Hct 39.6 (35.3-44.9) % Plt Count 197 (140-400) K/mcL Neutrophils # 2.4 (1.6-8.9) K/mcL BMP 08/31/16 04:58 Sodium 134 L Potassium 4.2 Chloride 88 L Carbon Dioxide 40 H* BUN 25 H Creatinine 1.02 Glucose 189 H Calcium 9.5 - ABG Interpretation ABG results: ABG ABG pH 7.35 pH Units (7.32-7.45) 08/31/16 10:45 ABG pCO2 85 mmHg (35-45) H* 08/31/16 10:45 ABG pO2 61 mmHg (85-104) L 08/31/16 10:45 ABG O2 Saturation 90 % (95-98) L 08/31/16 10:45 PT/INR, D-dimer PT 12.5 Seconds (9.4-12.1) H 08/28/16 07:51 - Impressions Impressions Chest X-Ray 08/31/16 09:23 IMPRESSION: Mild blunting of left costophrenic angle, and a small pleural effusion is not excluded. Otherwise stable chest. D/ / Anastasia Vides MD / Anastasia Vides MD Interpreting Provider: Anastasia Vides MD - Attending Attestation I examined this patient and reviewed laboratory, imaging and all diagnostic data. My medical decision-making was reviewed with Alfredito MaynardReagan - Resident Physician. I agree with the documented findings, disposition and treatment plan as described above.
[2016-08-31] MEDS ORDERED: Ipratropium/Albuterol Neb 3 ML ONE (10:36)
[2016-08-31] MEDS: Budesonide/Formoterol 80/4.5 MDI IH SCH ×2 (10:46→20:22)
[2016-08-31] MEDS ORDERED: Vancomycin 2,000 MG in D5% in Water 250 ML IVPB SCH (11:00)
[2016-08-31 11:06] LABS: ABG Base Excess 17.5 mEq/L (-2.0 to 3.0); ABG HCO3 46.9 mEQ/L (21-27); ABG Oxygen Saturation 90 % (95-98); ABG PH 7.35 pH Units (7.32-7.45); ABG PO2 61 mmHg (85-104); ABG TCO2 49.5 mEq/L (20-26)
[2016-08-31 11:09] LABS: ABG PCO2 85 mmHg (35-45)
[2016-08-31 11:11] LABS: Blood Gas Liter Flow 3 L/MIN
[2016-08-31] MEDS ORDERED: acetaZOLAMIDE 250 MG TABLET PO ONE (11:16)
[2016-08-31] MEDS ORDERED: Vancomycin 2,000 MG in D5% in Water 500 ML IVPB ONE (11:52)
[2016-08-31 17:45] LABS: ABG Base Excess 13.6 mEq/L (-2.0 to 3.0); ABG HCO3 39.8 mEQ/L (21-27); ABG Oxygen Saturation 97 % (95-98); ABG PCO2 56 mmHg (35-45); ABG PH 7.46 pH Units (7.32-7.45); ABG PO2 83 mmHg (85-104); ABG TCO2 41.5 mEq/L (20-26)
[2016-08-31 17:46] LABS: Blood Gas FiO2 32 %
[2016-09-01] MEDS: Ipratropium/Albuterol Neb 3 ML IH SCH ×7 (00:13→23:03)
[2016-09-01] MEDS: Vancomycin 1,500 MG in D5% in Water 250 ML IVPB SCH ×2 (00:51→12:31)
[2016-09-01 05:19] LABS: Hematocrit 38.2 % (35.3-44.9); Hemoglobin 11.1 g/dL (11.5-15.4); Mean Corpuscular HGB Conc 29.1 g/dL (31.6-35.5); Mean Corpuscular Hemoglobin 23.9 pg (28.0-33.3); Mean Corpuscular Volume 82.3 fL (83.0-100.0); Mean Platelet Volume 10.8 fL (9.4-12.4); Platelet Count 189 K/mcL (140-400); Red Blood Count 4.64 M/mcL (3.82-4.97); Red Cell Distribution Width 15.9 % (11.5-14.5)
[2016-09-01 05:33] LABS: BUN/Creatinine Ratio 23 (6-26); Blood Urea Nitrogen 20 mg/dL (7-20); Calcium 9.4 mg/dL (8.6-10.8); Carbon Dioxide 38 mEq/L (19-29); Chloride 91 mEq/L (98-109); Glucose 147 mg/dL (70-99); Osmolality,Calculated 285 (280-300); Potassium 3.6 mEq/L (3.5-4.5); Sodium 135 mEq/L (136-145); eGFR For African Americans > 60 (> 60); eGFR For Non-African Americans > 60 (> 60)
[2016-09-01 05:50] LABS: Monocytes # 0.4 K/mcL (0.0-1.3); Neutrophils # 2.7 K/mcL (1.6-8.9)
[2016-09-01 05:51] LABS: Platelet Estimate Normal (Normal); Reactive Lymphocytes Present (Not Present)
[2016-09-01] MEDS: *HR* Heparin 5,000 UNIT/ML VIAL SQ SCH ×2 (06:00→17:29)
[2016-09-01] MEDS: predniSONE 20 MG TABLET PO SCH (07:21)
[2016-09-01] MEDS: Folic Acid 1 MG TABLET PO SCH (07:21)
[2016-09-01] MEDS: Levofloxacin 750 MG/150 ML 750 MG/150 ML BAG IVPB SCH (07:21)
[2016-09-01] MEDS: Insulin LISPRO 300 UNITS/3 ML VIAL SQ SCH ×3 (08:29→17:28)
[2016-09-01] MEDS: Insulin DETEMIR 100 UNIT/ML X5UNITS SQ SCH ×2 (08:29→20:50)
[2016-09-01 09:52] LABS: Alanine Aminotransferase 17 Units/L (0-55); Albumin 2.6 g/dL (3.5-5.0); Albumin/Globulin Ratio 0.7 (1.1-2.2); Alkaline Phosphatase 72 Units/L (38-126); Aspartate Amino Transferase 31 Units/L (5-34); Bilirubin,Direct 0.3 mg/dL (0.0-0.5); Bilirubin,Indirect 0.4 mg/dL (0.0-1.2); Bilirubin,Total 0.7 mg/dL (0.2-1.2); Total Protein 6.6 g/dL (6.0-8.3)
--- NOTE | 2016-09-01 10:44 | Internal Med Progress Note ---
<Gail Barajas - Last Filed: 09/01/16 11:24> Date of Encounter: 09/01/16 Time of Encounter: 10:42 - Assessment and plan (1) Acute respiratory failure with hypoxia and hypercapnia Status: Acute Assessment and plan: Secondary to PNA and COPD exacerbation in the setting of suspected OSMAN/OHS. Patient presented with increasing shortness of breath and SaO2 in ED was 84%. She does not use oxygen at home. CT chest showed patchy areas of ground-glass opacities, suspected pneumonitis. Chest x-ray was negative for any acute process. Echocardiogram revealed LVEF 70%, mild LV diastolic dysfunction, unable to estimate RSVP. Influenza A PCR was positive in serum. Troponin negative 2. 09/01: Patient is slowly improving, still requires 4 L of oxygen, less rhonchi but still significant wheezes. Reports she is feeling less SOB today. Will continue levaquin(day4), vancomycin (day2), scheduled duonebs, symbicort, mucinex, Prednisone 40mg/day, Tamiflu (day 5). Nurse to qualify home oxygen. (2) PNA (pneumonia) Status: Acute Assessment and plan: Patient with CT scan suspicious for PNA. Likely post flu PNA. Plan as above. Qualifiers: Pneumonia type: due to unspecified organism Laterality: bilateral Lung location: lower lobe of lung Qualified Code(s): J18.9 - Pneumonia, unspecified organism (3) Influenza A virus present Status: Acute Assessment and plan: plan as above (4) Acute exacerbation of chronic obstructive airways disease Status: Acute Assessment and plan: Patient with non-productive cough, sob, wheezing. Suspect patient having COPD- Exacerbation triggered by Influenza-A. Will continue plan as above. (5) Acute diastolic heart failure Status: Acute Assessment and plan: Patient with diastolic heart failure. Patient does not appear to be volume overloaded today. Will continue to hold lasix at this time. (6) Diabetes mellitus Status: Acute Assessment and plan: Glucose 189-195. Continue Levemir 10 units daily with corrective sliding scale. Patient has been placed on a diabetic diet. Goal sugars <180. Qualifiers: Diabetes mellitus type: type 2 Diabetes mellitus complication status: without complication Diabetes mellitus roller staker insulin use: without roller staker use Qualified Code(s): E11.9 - Type 2 diabetes mellitus without complications (7) Hyponatremia Status: Acute Assessment and plan: Sodium was 127 on admission, likely hypervolemic hyponatremia. Improved. Sodium stable at 135. Continue to monitor. (8) Hyperkalemia Status: Acute Assessment and plan: resolved. secondary to use of lisinopril, and Solu-Medro. Discontinued lisinopril (9) Metabolic alkalosis Status: Acute Assessment and plan: Patient has mixed acid/base d/o. Metabolic alkalosis and respiratory acidosis. Suspect respiratory acidosis secondary to COPD exacerbation and contraction alkalosis. Will place patient on BiPap and check ABG in 4 hours. 09/01: Patient refusing BiPap at this time. Bicarb 38. Spo2 94% on 4L NC. Patient is breathing comfortably at this time. Will continue to monitor =. - Subjective Interval history: I have seen and examined the patient this morning. She reports she is feeling better than she did yesterday. Her sob is better. She is no longer having chills. She continues to have a cough producing clear sputum. Denies cp, palpitaitons, wheezing, abdominal pain, diarrhea, constipation, lower extremity edema or pain. Denies any other complaints at this time. - Constitutional Vitals: Temp Pulse Resp BP Pulse Ox 98.3 F 81 16 115/66 95 09/01/16 08:00 09/01/16 08:00 09/01/16 08:00 09/01/16 08:00 09/01/16 08:00 General appearance: Present: cooperative, A&O X 3, morbidly obese, pleasant, no acute distress, answers questions appropriately - Head Head exam: Present: atraumatic, normocephalic - Eye Eye exam: Present: PERRL, conjuntiva pink, sclera anicteric Pupils: Present: PERRL - Neck Neck exam general surgery: Present: supple, trachea midline. Absent: lymphadenopathy - Respiratory Respiratory exam: Present: decreased breath sounds (b/l), wheezes (wheezing throughout b/l lung plasencia). Absent: accessory muscle use, rales, rhonchi - Cardiovascular Cardiovascular exam: Present: distant heart sounds, RRR, +S1, +S2. Absent: diastolic murmur, gallop, rubs, systolic murmur - GI/Abdominal GI/Abdominal exam: Present: normal bowel sounds, soft, no peritoneal signs. Absent: distended, tenderness - Extremities Exam Extremities exam: Present: warm, radial pulses palpable and symetrical. Absent : calf tenderness, cyanotic, pedal edema - Back Exam Back exam: Present: normal inspection. Absent: rash noted, tenderness - Neurological Exam Neurological exam: Present: CN II-XII intact, oriented X3, no focal deficits. Absent: pronater drift, facial droop, speech deficit - Skin Skin exam: Present: dry, intact Internal Medicine: Result - Labs CBC & Chem 7: 09/01/16 04:57 09/01/16 04:57 Labs: Short CBC 09/01/16 Range/Units 04:57 WBC 5.1 (4.3-11.1) K/mcL Hgb 11.1 L (11.5-15.4) g/dL Hct 38.2 (35.3-44.9) % Plt Count 189 (140-400) K/mcL Neutrophils # 2.7 (1.6-8.9) K/mcL BMP 09/01/16 04:57 Sodium 135 L Potassium 3.6 Chloride 91 L Carbon Dioxide 38 H BUN 20 Creatinine 0.88 Glucose 147 H Calcium 9.4 Liver Function 09/01/16 Range/Units 04:57 Total Bilirubin 0.7 (0.2-1.2) mg/dL Direct Bilirubin 0.3 (0.0-0.5) mg/dL AST 31 (5-34) Units/L ALT 17 (0-55) Units/L Alkaline Phosphatase 72 (38-126) Units/L Albumin 2.6 L (3.5-5.0) g/dL - ABG Interpretation ABG results: ABG ABG pH 7.46 pH Units (7.32-7.45) H 08/31/16 17:30 ABG pCO2 56 mmHg (35-45) H 08/31/16 17:30 ABG pO2 83 mmHg (85-104) L 08/31/16 17:30 ABG O2 Saturation 97 % (95-98) 08/31/16 17:30 PT/INR, D-dimer PT 12.5 Seconds (9.4-12.1) H 08/28/16 07:51 - VTE Documentation of Mechanical Device: Graduated compression elastic hosiery Consult Discharge Plan - Plan Instructions: Heart Failure (DC), Diabetes Mellitus Type 2 in Adults (DC), Chronic Obstructive Pulmonary Disease (DC) Referrals: Rosa Whitt, PRESCRIPTION BENEFIT SPECIALIST [Primary Care Provider] - 09/08/16 10:00 am Prescriptions: GlipiZIDE [Glucotrol] 5 mg PO BIDWM #60 tablet GuaiFENesin ER [Mucinex] 600 mg PO BID #30 tbbp.12hr Levofloxacin 750 mg PO DAILY #9 tablet PredniSONE 10 mg PO DAILY 12 Days <Lady Car - Last Filed: 09/02/16 19:32> Date of Encounter: 09/02/16 - Assessment and plan (1) Acute respiratory failure Status: Acute Qualifiers: Respiratory failure complication: hypoxia Qualified Code(s): J96.01 - Acute respiratory failure with hypoxia (2) PNA (pneumonia) Status: Acute Qualifiers: Pneumonia type: due to unspecified organism Laterality: bilateral Lung location: lower lobe of lung Qualified Code(s): J18.9 - Pneumonia, unspecified organism (3) Acute exacerbation of chronic obstructive airways disease Status: Acute (4) Acute diastolic heart failure Status: Acute (5) Diabetes mellitus Status: Chronic Qualifiers: Diabetes mellitus type: type 2 Diabetes mellitus complication status: without complication Diabetes mellitus roller staker insulin use: without jail use Qualified Code(s): E11.9 - Type 2 diabetes mellitus without complications (6) Hyponatremia Status: Acute (7) Hyperkalemia Status: Acute - Constitutional Vitals: Temp Pulse Resp BP Pulse Ox 97.8 F 77 18 121/75 94 L 09/02/16 14:32 09/02/16 14:32 09/02/16 15:56 09/02/16 15:56 09/02/16 15:56 Internal Medicine: Result - Labs CBC & Chem 7: 09/02/16 04:47 09/02/16 04:47 Labs: Short CBC 09/02/16 Range/Units 04:47 WBC 5.4 (4.3-11.1) K/mcL Hgb 11.1 L (11.5-15.4) g/dL Hct 37.7 (35.3-44.9) % Plt Count 179 (140-400) K/mcL Neutrophils # 3.0 (1.6-8.9) K/mcL BMP 09/02/16 04:47 Sodium 136 Potassium 3.8 Chloride 94 L Carbon Dioxide 39 H BUN 18 Creatinine 0.85 Glucose 129 H Calcium 9.5 - ABG Interpretation ABG results: ABG ABG pH 7.46 pH Units (7.32-7.45) H 08/31/16 17:30 ABG pCO2 56 mmHg (35-45) H 08/31/16 17:30 ABG pO2 83 mmHg (85-104) L 08/31/16 17:30 ABG O2 Saturation 97 % (95-98) 08/31/16 17:30 PT/INR, D-dimer PT 12.5 Seconds (9.4-12.1) H 08/28/16 07:51 - Attending Attestation Late entry for a patient I examined, reviewed laboratory, imaging and all diagnostic data on 09/01/16. My medical decision-making was reviewed with Gail Maynard - Resident Physician. I agree with the documented findings, disposition and treatment plan as described above.
[2016-09-01] MEDS: Budesonide/Formoterol 80/4.5 MDI IH SCH ×2 (11:36→20:04)
[2016-09-01] MEDS ORDERED: Insulin LISPRO 300 UNITS/3 ML VIAL SQ SCH (21:00)
[2016-09-02] MEDS: Ipratropium/Albuterol Neb 3 ML IH SCH ×4 (03:46→15:56)
[2016-09-02] MEDS: *HR* Heparin 5,000 UNIT/ML VIAL SQ SCH ×2 (05:06→17:06)
[2016-09-02 05:10] LABS: Basophils % 0.2 %; Eosinophils % 0.2 %; Hematocrit 37.7 % (35.3-44.9); Hemoglobin 11.1 g/dL (11.5-15.4); Immature Granulocytes % 0.4 % (0-4); Lymphocytes # 1.8 K/mcL (0.6-4.6); Lymphocytes % 33.8 %; Mean Corpuscular HGB Conc 29.4 g/dL (31.6-35.5); Mean Corpuscular Hemoglobin 24.3 pg (28.0-33.3); Mean Corpuscular Volume 82.5 fL (83.0-100.0); Mean Platelet Volume 11.6 fL (9.4-12.4); Monocytes # 0.5 K/mcL (0.0-1.3); Monocytes % 9.7 %; Platelet Count 179 K/mcL (140-400); Red Blood Count 4.57 M/mcL (3.82-4.97); Red Cell Distribution Width 15.8 % (11.5-14.5); Segmented Neutrophils % 55.7 %
[2016-09-02 05:21] LABS: BUN/Creatinine Ratio 21 (6-26); Blood Urea Nitrogen 18 mg/dL (7-20); Calcium 9.5 mg/dL (8.6-10.8); Carbon Dioxide 39 mEq/L (19-29); Chloride 94 mEq/L (98-109); Glucose 129 mg/dL (70-99); Osmolality,Calculated 286 (280-300); Sodium 136 mEq/L (136-145); eGFR For African Americans > 60 (> 60); eGFR For Non-African Americans > 60 (> 60)
[2016-09-02 05:23] LABS: Potassium 3.8 mEq/L (3.5-4.5)
[2016-09-02 05:45] LABS: Platelet Estimate Normal (Normal)
[2016-09-02] MEDS: Budesonide/Formoterol 80/4.5 MDI IH SCH (07:51)
[2016-09-02] MEDS: Folic Acid 1 MG TABLET PO SCH (08:59)
[2016-09-02] MEDS: Insulin LISPRO 300 UNITS/3 ML VIAL SQ SCH ×3 (08:59→17:06)
[2016-09-02] MEDS: predniSONE 20 MG TABLET PO SCH (08:59)
[2016-09-02] MEDS ORDERED: levoFLOXacin 750 MG TABLET PO SCH (09:00)
[2016-09-02] MEDS: Insulin DETEMIR 100 UNIT/ML X5UNITS SQ SCH (09:04)
[2016-09-02 14:40] VITALS: BP 121/75
--- NOTE | 2016-09-02 15:17 | Discharge Summary ---
Date of Encounter: 09/02/16 Time of Encounter: 09:45 - Discharge Diagnosis (1) Acute and chronic respiratory failure with hypoxia Priority: Primary Status: Acute (2) Acute exacerbation of chronic obstructive airways disease Priority: Secondary Status: Acute (3) Hyponatremia Priority: Secondary Status: Acute (4) Diabetes mellitus Priority: Secondary Status: Chronic Qualifiers: Diabetes mellitus type: type 2 Diabetes mellitus complication status: without complication Diabetes mellitus fpc insulin use: without termite control technician use Qualified Code(s): E11.9 - Type 2 diabetes mellitus without complications (5) Acute diastolic heart failure Priority: Secondary Status: Acute (6) Hyperkalemia Priority: Secondary Status: Acute (7) PNA (pneumonia) Priority: Secondary Status: Acute Qualifiers: Pneumonia type: due to unspecified organism Laterality: bilateral Lung location: lower lobe of lung Qualified Code(s): J18.9 - Pneumonia, unspecified organism (8) Metabolic alkalosis Priority: Secondary Status: Acute (9) Influenza A virus present Priority: Secondary Status: Acute - Discharge Medications Prescriptions: GlipiZIDE [Glucotrol] 5 mg PO BIDWM #60 tablet GuaiFENesin ER [Mucinex] 600 mg PO BID #30 tbbp.12hr Levofloxacin 750 mg PO DAILY #9 tablet PredniSONE 10 mg PO DAILY 12 Days Home Medications: Albuterol Sulfate [Ventolin Hfa] 2 puff IH Q4H PRN 08/28/16 [History] Ferrous Sulfate [Iron] 325 mg PO DAILY 08/28/16 [History] Fluticasone/Salmeterol [Advair 250-50 Diskus] 1 puff IH BID 08/28/16 [History] Folic Acid 1 mg PO DAILY 08/28/16 [History] Lisinopril [Zestril] 20 mg PO DAILY 08/28/16 [History] Umeclidinium [place] [Incruse Ellipta] 1 puff IH DAILY 08/28/16 [History] GlipiZIDE [Glucotrol] 5 mg PO BIDWM #60 tablet 09/02/16 [Rx] GuaiFENesin ER [Mucinex] 600 mg PO BID #30 tbbp.12hr 09/02/16 [Rx] Levofloxacin 750 mg PO DAILY #9 tablet 09/02/16 [Rx] Metformin HCl [Metformin HCl ER] 500 mg PO BID #60 tab 09/02/16 [Rx] PredniSONE 10 mg PO DAILY 12 Days 09/02/16 [Rx] Allergies/Adverse Reactions: Allergies Hydromorphone [From Dilaudid] Allergy (Verified 01/11/15 12:34) Itching Date of admission: 08/30/16 16:17 Primary care physician: Rosa Whitt CNP Consults: 08/31/16 10:28 Consult to Respiratory Therapy [CONS] Routine Reason for Consult: Pulmonary toliet Call Completed: No 09/02/16 09:14 Consult to Occupational Therapy [CONS] Routine Comment: Evaluate, develop and implement POC Consult to Physical Therapy [CONS] Routine Comment: Evaluate, develop and implement POC Discharging clinician: Néstor Haley Anticipated date of discharge: 09/02/16 - Patient Status Disposition: Home Health Service Condition: Fair Functional capacity at discharge: uses cane/walker Overall status at discharge: patient is progressing back to baseline - Discharge Instructions Instructions: Heart Failure (DC), Diabetes Mellitus Type 2 in Adults (DC), Chronic Obstructive Pulmonary Disease (DC) Follow Up With: Rosa Whitt CNP [Primary Care Provider] - 09/08/16 10:00 am - Diet and Activity Activity: as per physical therapy, increase activity as tolerated Diet: diabetic diet, low salt diet Hospital course: Ms. Panchal is a 65 year old female with history of COPD, coronary artery disease , diabetes, hyperlipidemia and CHF was admitted here with acute hypoxic respiratory failure related to pneumonia and acute COPD exacerbation along with the acute diastolic heart failure. She was treated for this with bronchodilators, intravenous steroids and IV antibiotics along with IV Lasix. She has had good improvement in her symptoms since then. She has now been taken off Lasix and her volume status has improved. Her respiratory status is also improving. She however would require home oxygen given the severity of her COPD. She was saturating at 87% on room air at 4 minutes. She was placed on 3 L nasal cannula with improvement in her respiratory status. She is ambulatory at home and would require portable oxygen. At this time, she is clinically stable to be discharged home and will continue antibiotic course with levofloxacin and a prednisone taper. She will follow up with her primary care provider for further management. Her diabetes has been uncontrolled and with the use of steroids, her blood sugars have been elevated here. I am increasing her metformin dosage to 500 mg by mouth twice a day and also adding glipizide 5 mg by mouth twice a day. She was evaluated by physical therapy and recommended home health and PT which will be arranged for her. - Time Spent with Patient Total time spent providing and/or coordinating discharge services: Greater than 30 minutes (45 min) - Constitutional Vitals: Temp Pulse Resp BP Pulse Ox 97.8 F 77 16 121/75 95 09/02/16 14:32 09/02/16 14:32 09/02/16 14:32 09/02/16 14:32 09/02/16 14:32 General appearance: Present: cooperative, A&O X 3, morbidly obese, pleasant, no acute distress, answers questions appropriately - Respiratory Respiratory exam: Present: CTAB, rhonchi. Absent: accessory muscle use, rales, wheezes - Cardiovascular Cardiovascular exam: Present: RRR, +S1, +S2. Absent: diastolic murmur, gallop, rubs, systolic murmur - GI/Abdominal GI/Abdominal exam: Present: normal bowel sounds, soft, no peritoneal signs. Absent: distended, tenderness - Extremities Exam Extremities exam: Present: warm, radial pulses palpable and symetrical. Absent : calf tenderness, cyanotic, pedal edema - Neurological Exam Neurological exam: Present: alert, oriented X3, no focal deficits. Absent: facial droop, speech deficit - VTE Documentation of Mechanical Device: Graduated compression elastic hosiery - Attending Attestation This document has been at least partially created by Hands recognition technology by Dr. Haley. Errors in grammar, wording or other phrases may exist. If errors are found after the documentation is signed, they will be addressed individually in the addendum section of this document when appropriate.
--- NOTE | 2016-09-02 15:34 | Physician Discharge Referral ---
Home Health/Hosp Referral Info Transfer to: Home Health Provider in Charge Post Discharge: PCP - Diagnosis (1) Acute and chronic respiratory failure with hypoxia Priority: Primary Status: Acute (2) Acute exacerbation of chronic obstructive airways disease Priority: Secondary Status: Acute (3) Hyponatremia Priority: Secondary Status: Acute (4) Diabetes mellitus Priority: Secondary Status: Chronic (5) Acute diastolic heart failure Priority: Secondary Status: Acute (6) Hyperkalemia Priority: Secondary Status: Acute (7) PNA (pneumonia) Priority: Secondary Status: Acute (8) Metabolic alkalosis Priority: Secondary Status: Acute (9) Influenza A virus present Priority: Secondary Status: Acute - Respiratory Orders Oxygen / L per min (3) Smoking Cessation: Smoking cessation has been advised. For more information, call the [employer] Quit Line at 1-220-RDHT-NOW. - Diet/Nutrition Diet/Nutrition Orders: Cardiac (and diabetic), No Concentrated Sweets - Activity Activity Orders: Walker - Services Needed Following services are medically necessary services: Nursing, Physical Therapy, Occupational Therapy, Speech Therapy - Transfer Medications Prescriptions: GlipiZIDE [Glucotrol] 5 mg PO BIDWM #60 tablet GuaiFENesin ER [Mucinex] 600 mg PO BID #30 tbbp.12hr Levofloxacin 750 mg PO DAILY #9 tablet PredniSONE 10 mg PO DAILY 12 Days Home Medications: Albuterol Sulfate [Ventolin Hfa] 2 puff IH Q4H PRN 08/28/16 [History] Ferrous Sulfate [Iron] 325 mg PO DAILY 08/28/16 [History] Fluticasone/Salmeterol [Advair 250-50 Diskus] 1 puff IH BID 08/28/16 [History] Folic Acid 1 mg PO DAILY 08/28/16 [History] Lisinopril [Zestril] 20 mg PO DAILY 08/28/16 [History] Umeclidinium [place] [Incruse Ellipta] 1 puff IH DAILY 08/28/16 [History] GlipiZIDE [Glucotrol] 5 mg PO BIDWM #60 tablet 09/02/16 [Rx] GuaiFENesin ER [Mucinex] 600 mg PO BID #30 tbbp.12hr 09/02/16 [Rx] Levofloxacin 750 mg PO DAILY #9 tablet 09/02/16 [Rx] Metformin HCl [Metformin HCl ER] 500 mg PO BID #60 tab 09/02/16 [Rx] PredniSONE 10 mg PO DAILY 12 Days 09/02/16 [Rx] Allergies/Adverse Reactions: Allergies Hydromorphone [From Dilaudid] Allergy (Verified 01/11/15 12:34) Itching Certification: Further, I certify that my clinical findings support that this patient is homebound (i.e. absences from home require considerable and taxing effort and are for medical reasons or synagogue services or infrequently or short duration when for other reasons) because: Homebound Reason: Severity of cardiac or pulmonary status limits activity tolerance Attestation: My signature below is to certify that this patient is under my care and that I, or nurse practitioner, or a physician's family assistant working with me, has a face-to -face encounter with this patient.
[2016-09-02] MEDS ORDERED: Aminoglycoside Consult 1 EACH MC ONE (19:14)
== END 2016-09-02 19:15 | disposition home health service (06) | DRG 189 ==
LOC: 3NENU 07:12 → EMEROO 07:12 → 3NENU 10:26 → 3ANU 08-31 13:57
PROVIDERS: ADMIT Nurse Practitioner Acute Care; ATTEND Internal Medicine

== ENCOUNTER 2017-10-18 17:51 | Inpatient (IN) ==
[2017-10-18] MEDS ORDERED: methylPREDNISolone 125 MG/2 ML VIAL IVP ONE (17:57)
[2017-10-18] MEDS ORDERED: Ipratropium/Albuterol Neb 3 ML IH ONE (17:57)
--- NOTE | 2017-10-18 18:01 | Emergency Department Note ---
Disposition Clinical Impression: COPD exacerbation Chest pain Qualifiers: Chest pain type: unspecified Qualified Code(s): R07.9 - Chest pain, unspecified Disposition: Admitted As Inpatient Condition: Fair Referrals: Rosa Whitt CNP [Primary Care Provider] - Forms: ED Satisfaction Letter Time of Disposition: 19:54 Chest Pain HPI - General Chief Complaint: ED Chest Pain Stated Complaint: CP Time Seen by Provider: 10/18/17 17:56 Source: patient Mode of arrival: ambulatory Limitations: no limitations Vital Signs Reviewed: Yes Nursing Notes Reviewed: Yes - History of Present Illness HPI Narrative: 66-year-old history COPD comes in with increasing shortness of breath and chest pain describes the chest pain is substernal with radiation left arm and up the neck Pt complaint: chest pain Onset (ago): Just [employer] Duration: constant Onset: during rest Pain Location: substernal, left chest Severity scale (1-10): 7 Quality: tightness, aching Pain Radiation: LUE, neck Improves with: nothing Worsens with: exertion Treatments prior to arrival chest pain: none - Related Data Home Medications Medication Instructions Recorded Confirmed Albuterol Sulfate [Ventolin Hfa] 2 puff IH Q4H PRN 08/28/16 10/18/17 Ferrous Sulfate [Iron] 325 mg PO DAILY 08/28/16 10/18/17 Folic Acid 1 mg PO DAILY 08/28/16 10/18/17 Lisinopril [Zestril] 20 mg PO DAILY 08/28/16 10/18/17 Umeclidinium [place] [Incruse 1 puff IH DAILY 08/28/16 10/18/17 Ellipta] Albuterol Neb [Proventil Neb] 2.5 mg IH TID PRN 10/18/17 10/18/17 Aspirin [Lo-Dose Aspirin EC] 81 mg PO DAILY 10/18/17 10/18/17 Atorvastatin Calcium [Lipitor] 80 mg PO HS 10/18/17 10/18/17 Fluticasone/Salmeterol [Advair Hfa 2 puff IH DAILY 10/18/17 10/18/17 230-21 Mcg Inhaler] Previous Rx's Medication Instructions Recorded Metformin HCl [Metformin HCl ER] 500 mg PO BID #60 tab 09/02/16 glipiZIDE [Glucotrol] 5 mg PO BIDWM #60 tablet 09/02/16 Allergies Allergy/AdvReac Type Severity Reaction Status Date / Time Hydromorphone [From Dilaudid] AdvReac HYPERTENSION,DIZZINESS,HOT Verified 10/18 20:11 FLASHES All systems ED: reviewed and negative except as stated. Constitutional: Denies: fever, chills, weakness, weight change Eyes: Denies: eye pain, eye discharge, vision change ENT ED: Denies: ear pain, throat pain, dental pain, hearing loss, epistaxis, congestion, dysphagia Cardiovascular: Reports: chest pain, dyspnea on exertion. Denies: palpitations , edema, syncope Respiratory: Denies: cough, dyspnea, wheezes, hemoptysis, stridor Gastrointestinal: Denies: abdominal pain, nausea, vomiting, diarrhea, constipation, hematemesis, melena, hematochezia Genitourinary: Denies: dysuria, frequency, hematuria, discharge Musculoskeletal: Denies: back pain, neck pain, arthralgia, myalgia Integumentary: Denies: rash, abrasion, lesions Neurological: Denies: headache, weakness, numbness, paresthesias, confusion, abnormal gait, vertigo Psychiatric: Denies: anxiety, depression, suicidal thoughts, homicidal thoughts , auditory hallucinations, visual hallucinations Endocrine: Denies: fatigue Hematological/Lymphatic: Denies: easy bleeding, easy bruising Allergic/Immunologic: Denies: facial swelling, urticaria Chest Pain PMH - Past Medical History Medical history: Reports: COPD, diabetes, hypertension, myocardial infarction Surgical history: Reports: cholecystectomy Psychiatric history: Reports: no psych history - Social History Smoking Status: Former smoker Alcohol use: Reports: rarely, occasionally Drug use: Reports: none Physical Exam - General Limitations: no limitations General appearance: alert, in no apparent distress - Head Head exam: atraumatic, normocephalic, normal inspection - Eye Eye exam: Present: normal appearance, PERRL, EOMI - ENT ENT exam: normal exam, normal oropharynx, mucous membranes moist - Neck Neck exam: Present: normal inspection, full ROM, trachea midline - Chest Chest inspection: Present: normal inspection, symmetric chest wall rise - Respiratory Respiratory exam: Present: respiratory distress, wheezes - Cardiovascular Cardiovascular exam: Present: regular rate, normal rhythm, normal heart sounds - Abdominal Exam Abdominal exam: Present: soft, Non-Tender. Absent: tenderness, distention, guarding, rebound, rigidity - Extremities Exam Extremities exam: Present: normal inspection, full ROM. Absent: tenderness, pedal edema - Expanded Lower Extremity Exam Neurovascular/Tendon exam: Absent: motor deficit, sensory deficit, tendon deficit Gait: not tested/not observed - Back Exam Back exam: Present: normal inspection, full ROM. Absent: tenderness - Neurological Exam Neurological exam: Present: alert, oriented X3 - Psychiatric Psychiatric exam: Present: normal affect, normal mood - Skin Skin exam: Present: warm, dry, intact, normal color Course - Reevaluation(s) Reevaluation #1: 66-year-old with history COPD comes in complaining of shortness of breath chest pain. Cardiac workup is negative at this point. Patient will be admitted for further evaluation and treatment. Time: 20:27 - Consultations Consultation #1: Discussed with Dr. Dudley, admit Time: 21:06 Vital Signs Temperature 98.6 F 10/18/17 17:53 Pulse Rate 76 10/18/17 17:53 Respiratory Rate 16 10/18/17 17:53 Blood Pressure 188/90 10/18/17 17:53 O2 Sat by Pulse Oximetry 98 10/18/17 17:53 Temperature 98.6 F 10/18/17 17:53 Pulse Rate 62 10/18/17 20:08 Respiratory Rate 18 10/18/17 20:08 Blood Pressure 186/90 10/18/17 20:08 O2 Sat by Pulse Oximetry 98 10/18/17 20:08 Oxygen Delivery Oxygen Delivery Room Air Chest Pain - Lab Data Lab results reviewed: Yes I reviewed the patient's lab results. Result diagrams: 10/18/17 18:37 10/18/17 18:37 Lab Results 10/18/17 10/18/17 10/18/17 Range/Units 18:37 18:37 18:37 WBC 7.4 (4.3-11.1) K/mcL RBC 3.95 (3.82-4.97) M/mcL Hgb 11.0 L (11.5-15.4) g/dL Hct 35.5 (35.3-44.9) % MCV 89.9 (83.0-100.0) fL MCH 27.8 L (28.0-33.3) pg MCHC 31.0 L (31.6-35.5) g/dL RDW 13.0 (11.5-14.5) % Plt Count 139 L (140-400) K/mcL MPV 11.9 (9.4-12.4) fL Immature Gran % 0.3 (0-4) % Seg Neutrophils % 66.1 % Lymphocytes % 24.5 % Monocytes % 7.6 % Eosinophils % 1.2 % Basophils % 0.3 % Neutrophils # 4.9 (1.6-8.9) K/mcL Lymphocytes # 1.8 (0.6-4.6) K/mcL Monocytes # 0.6 (0.0-1.3) K/mcL Eosinophils # 0.1 (0.0-0.6) K/mcL Basophils # 0.0 (0.0-0.2) K/mcL PT 11.5 (9.4-12.1) Seconds INR 1.1 Sodium 139 (136-145) mEq/L Potassium 4.6 (3.5-5.1) mEq/L Chloride 96 L (98-107) mEq/L Carbon Dioxide 43 H* (23-29) mEq/L BUN 9 (8-23) mg/dL Creatinine 0.61 (0.60-1.20) mg/dL Est GFR ( Amer) > 60 (> 60) Est GFR (Non-Af Amer) > 60 (> 60) BUN/Creatinine Ratio 15 (6-26) Glucose 178 H (70-105) mg/dL Calculated Osmolality 291 (280-300) Lactic Acid (0.5-2.2) mmol/L Calcium 9.6 (8.6-10.3) mg/dL Troponin I < 0.03 (< 0.04) ng/mL B-Natriuretic Peptide (Less than 100) pg/mL 10/18/17 10/18/17 Range/Units 18:37 18:37 WBC (4.3-11.1) K/mcL RBC (3.82-4.97) M/mcL Hgb (11.5-15.4) g/dL Hct (35.3-44.9) % MCV (83.0-100.0) fL MCH (28.0-33.3) pg MCHC (31.6-35.5) g/dL RDW (11.5-14.5) % Plt Count (140-400) K/mcL MPV (9.4-12.4) fL Immature Gran % (0-4) % Seg Neutrophils % % Lymphocytes % % Monocytes % % Eosinophils % % Basophils % % Neutrophils # (1.6-8.9) K/mcL Lymphocytes # (0.6-4.6) K/mcL Monocytes # (0.0-1.3) K/mcL Eosinophils # (0.0-0.6) K/mcL Basophils # (0.0-0.2) K/mcL PT (9.4-12.1) Seconds INR Sodium (136-145) mEq/L Potassium (3.5-5.1) mEq/L Chloride (98-107) mEq/L Carbon Dioxide (23-29) mEq/L BUN (8-23) mg/dL Creatinine (0.60-1.20) mg/dL Est GFR ( Amer) (> 60) Est GFR (Non-Af Amer) (> 60) BUN/Creatinine Ratio (6-26) Glucose (70-105) mg/dL Calculated Osmolality (280-300) Lactic Acid 1.6 (0.5-2.2) mmol/L Calcium (8.6-10.3) mg/dL Troponin I (< 0.04) ng/mL B-Natriuretic Peptide 70 (Less than 100) pg/mL - Radiology Data Radiology results reviewed: Yes I reviewed the patient's radiology results. Chest X-Ray 10/18/17 17:57 IMPRESSION: No acute cardiac or pulmonary disease. D/ / Seth Snowden MD / Seth Snowden MD Interpreting Provider: Seth Snowden MD - EKG Data EKG attestation: Yes I reviewed and interpreted this EKG. EKG shows normal: sinus rhythm Rate: normal Rhythm: NSR Sullivan/QRS: normal Interpretation: no acute changes, nonspecific ST-T wave changes Heart Score - Score History: Slightly Suspicious EKG: Non Specific repolarisation Disturbance Age: 45-65 Risk Factors: Equal/Greater than 3 risk factor or history of atherosclerotic disease Troponin: Less than normal limit HEART Score Total: 4
[2017-10-18 18:56] LABS: Basophils % 0.3 %; Eosinophils # 0.1 K/mcL (0.0-0.6); Eosinophils % 1.2 %; Hematocrit 35.5 % (35.3-44.9); Immature Granulocytes % 0.3 % (0-4); Lymphocytes # 1.8 K/mcL (0.6-4.6); Lymphocytes % 24.5 %; Mean Corpuscular Hemoglobin 27.8 pg (28.0-33.3); Mean Corpuscular Volume 89.9 fL (83.0-100.0); Mean Platelet Volume 11.9 fL (9.4-12.4); Monocytes # 0.6 K/mcL (0.0-1.3); Monocytes % 7.6 %; Neutrophils # 4.9 K/mcL (1.6-8.9); Platelet Count 139 K/mcL (140-400); Red Blood Count 3.95 M/mcL (3.82-4.97); Segmented Neutrophils % 66.1 %
[2017-10-18 19:06] LABS: INR 1.1; Prothrombin Time 11.5 Seconds (9.4-12.1)
[2017-10-18 19:16] LABS: BUN/Creatinine Ratio 15 (6-26); Blood Urea Nitrogen 9 mg/dL (8-23); Calcium 9.6 mg/dL (8.6-10.3); Carbon Dioxide 43 mEq/L (23-29); Chloride 96 mEq/L (98-107); Glucose 178 mg/dL (70-105); Osmolality,Calculated 291 (280-300); Potassium 4.6 mEq/L (3.5-5.1); Sodium 139 mEq/L (136-145); Troponin I < 0.03 ng/mL (< 0.04); eGFR For African Americans > 60 (> 60); eGFR For Non-African Americans > 60 (> 60)
[2017-10-18] MEDS ORDERED: Naloxone 0.4 MG/ML INJ IVP PRN (23:54)
[2017-10-18] MEDS ORDERED: *HR* Dextrose 50 % in Water (Syg) 50 ML SYRINGE IVP PRN (23:59)
[2017-10-18] MEDS ORDERED: Dextrose Gel 15 GM/37.5 ML TUBE PO PRN ×2 (23:59)
[2017-10-18] MEDS ORDERED: D5% in Water 1,000 ML IVC PRN (23:59)
--- NOTE | 2017-10-19 00:05 | Internal Med History&Physical ---
<Pedro Luis Gomes - Last Filed: 10/19/17 03:15> Date of Encounter: 10/19/17 Time of Encounter: 11:30 Internal Medicine - H&P: HPI Chief complaint: sob Admitted From: Home Plans for Post Hospital Care: Home History of present illness: Ms. Panchal is a 66 year old female w/ pmh of COPD, morbid obesity, HLD, t2dm presents with progressively worsening SOB since this AM. She states that it's similar to her previous COPD exacerbations. She states her COPD exacerbations have beoming more and more frequent. She's required her short acting inhaler more today with only temporary relief. Patient denies fever, chills, nausea, vomiting, orthopnea, pnd, swelling in legs. Patient decided to come to hospital today because besides her SOB she also woke up with left sided "achy" neck pain that radiates to her left arm when she turns her head left. Pain is relieved when her neck turns right. no history of trauma. Patient denies numbness, tingling, decrease strength or sensation to her extremities. Past Med Surg Social Fam HX - Past Medical History Medical history: COPD, diabetes, hypertension, myocardial infarction Psychiatric history: no psych history - Past Surgical History Surgical History: cholecystectomy - Social History Smoking Status: Former smoker Smokeless Tobacco Status: No Alcohol use: rarely, occasionally Drug use: none - Family History Father Maternal Living Status: Hx Family Cancer: Yes (lung cancer) Internal Medicine - H&P: Meds Albuterol Sulfate [Ventolin Hfa] 2 puff IH Q4H PRN 08/28/16 [History] Ferrous Sulfate [Iron] 325 mg PO DAILY 08/28/16 [History] Folic Acid 1 mg PO DAILY 08/28/16 [History] Lisinopril [Zestril] 20 mg PO DAILY 08/28/16 [History] Umeclidinium [place] [Incruse Ellipta] 1 puff IH DAILY 08/28/16 [History] Metformin HCl [Metformin HCl ER] 500 mg PO BID #60 tab 09/02/16 [Rx] glipiZIDE [Glucotrol] 5 mg PO BIDWM #60 tablet 09/02/16 [Rx] Albuterol Neb [Proventil Neb] 2.5 mg IH TID PRN 10/18/17 [History] Aspirin [Lo-Dose Aspirin EC] 81 mg PO DAILY 10/18/17 [History] Atorvastatin Calcium [Lipitor] 80 mg PO HS 10/18/17 [History] Fluticasone/Salmeterol [Advair Hfa 230-21 Mcg Inhaler] 2 puff IH DAILY 10/18/17 [History] 3 Allergy/AdvReac Type Severity Reaction Status Date / Time Hydromorphone [From Dilaudid] AdvReac HYPERTENSION,DIZZINESS,HOT Verified 10/18 20:11 FLASHES All Systems PM: A 10-system review of systems was performed and is negative for pertinent findings except as documented above in the HPI. - Constitutional Constitutional: weakness, no anorexia, no chills, no fever(s), no night sweats - EENT Eyes: no change in vision, no discharge, no pain, no photophobia Ears: no ear discharge, no ear pain, no tinnitus Nose, mouth and throat: no dysphagia, no nasal discharge, no neck pain, no sore throat - Cardiovascular Cardiovascular ROS IM: no chest pain, no diaphoresis, no dyspnea, no dyspnea on exertion, no edema, no irregular heart rhythm, no lightheadedness, no orthopnea , no palpitations, no paroxysmal nocturnal dyspnea, no syncope - Respiratory Respiratory: dyspnea, dyspnea on exertion, no cough, no wheezing, no excessive phlegm production - Gastrointestinal Gastrointestinal: no abdominal pain, no diarrhea, no hematemesis, no hematochezia, no melena, no nausea, no vomiting - Genitourinary Genitourinary: no change in urinary stream, no dysuria, no flank pain, no hematuria - Musculoskeletal Musculoskeletal ROS IM: no numbness, no tingling - Integumentary Integumentary IM: no rash, no unusual bruising - Neurological Neurological ROS: no confusion, no convulsions, no focal weakness, no numbness, no tingling, no tremor(s) - Hematologic/Lymphatic Hematologic/Lymphatic: no easy bruising - Constitutional Vitals: Temp Pulse Resp BP Pulse Ox 98.6 F 81 16 138/72 96 10/18/17 22:52 10/18/17 22:52 10/18/17 22:52 10/18/17 22:52 10/18/17 22:52 General appearance: Present: cooperative, A&O X 3, morbidly obese, no acute distress, answers questions appropriately - Head Head exam: Present: atraumatic, normocephalic - Eye Eye exam: Present: PERRL, conjuntiva pink, sclera anicteric Pupils: Present: PERRL - Neck Neck exam general surgery: Present: supple, trachea midline. Absent: lymphadenopathy - Respiratory Respiratory exam: Present: decreased breath sounds, wheezes (diffuse wheezing). Absent: accessory muscle use, chest wall tenderness, rales, respiratory distress, rhonchi, stridor, tachypnea - Cardiovascular Cardiovascular exam: Present: RRR. Absent: diastolic murmur, gallop, irregular rhythm, rubs, systolic murmur - GI/Abdominal GI/Abdominal exam: Present: normal bowel sounds, soft, no peritoneal signs. Absent: distended, firm, guarding, hepatomegaly, rebound, rigid, splenomegaly, tenderness - Extremities Exam Extremities exam: Present: warm, radial pulses palpable and symmetrical. Absent : calf tenderness, cyanotic, pedal edema - Neurological Exam Neurological exam: Present: CN II-XII intact, oriented X3, no focal deficits. Absent: pronater drift, facial droop, speech deficit - Skin Skin exam: Present: dry, intact Internal Med - H&P Results - Labs CBC & Chem 7: 10/19/17 00:46 10/19/17 00:46 - Assessment and plan (1) COPD exacerbation Current Visit: Yes Status: Acute Assessment and plan: acute respiratory failure with hypercapnia. - duonebs - O2 support; goal SpO2 88-92% - levaquin day 1 - steroid IV 40 q8hr - closely monitor vitals, and will follow bicarb (2) Acute respiratory failure with hypercapnia Current Visit: Yes Status: Acute Assessment and plan: see above (3) Neck pain on left side Current Visit: Yes Status: Acute Assessment and plan: radiates to left arm. no neurological deficits. Continue to monitor during hospitalization. HEART score 4 (age, HLD, t2dm, morbid obesity). trops negative x1, will continue to trend. No ischemia found on EKG. last echo 08/2016 - no abnormal findings - NPO at midnight - CT cervical spine pending (4) Morbid obesity with body mass index (BMI) of 50.0 to 59.9 in adult Current Visit: Yes Status: Acute Assessment and plan: educated patient on weight loss, and recommended patient to have referral to bariatric surgery. (5) Diabetes mellitus Current Visit: Yes Status: Chronic Assessment and plan: SSI low dose. holding home Rx Qualifiers: Diabetes mellitus type: type 2 Diabetes mellitus retirement insulin use: without rodent exterminator use Diabetes mellitus complication status: without complication Qualified Code(s): E11.9 - Type 2 diabetes mellitus without complications (6) Hypertension Current Visit: Yes Status: Acute Assessment and plan: on admission, BP was elevated. Patient has known history of HTN. - hydralazine for SBP >160 Qualifiers: Qualified Code(s): I10 - Essential (primary) hypertension (7) DVT prophylaxis Current Visit: Yes Status: Acute Assessment and plan: SQ heparin (8) Hyperlipidemia Current Visit: Yes Status: Acute Assessment and plan: continue home statin Qualifiers: Qualified Code(s): E78.5 - Hyperlipidemia, unspecified - Time Spent With Patient Total time spent is greater than 50% in coordination of care (as documented) at patient's floor/unit and/or counseling patient: <Chiara Dudley - Last Filed: 10/19/17 06:05> Date of Encounter: 10/19/17 Internal Medicine - H&P: HPI History of present illness: Ms. Panchal is a 66 year old female All Systems PM: A 10-system review of systems was performed and is negative for pertinent findings except as documented above in the HPI. - Constitutional Vitals: Temp Pulse Resp BP Pulse Ox 98.4 F 77 20 116/65 97 10/19/17 02:39 10/19/17 02:39 10/19/17 04:44 10/19/17 02:39 10/19/17 04:44 Internal Med - H&P Results - Labs CBC & Chem 7: 10/19/17 00:46 10/19/17 00:46 Labs: Short CBC 10/19/17 Range/Units 00:46 WBC 6.6 (4.3-11.1) K/mcL Hgb 10.5 L (11.5-15.4) g/dL Hct 33.5 L (35.3-44.9) % Plt Count 128 L (140-400) K/mcL BMP 10/19/17 00:46 Sodium 136 Potassium 4.3 Chloride 95 L Carbon Dioxide 38 H BUN 10 Creatinine 0.59 L Glucose 313 H Calcium 9.4 Cardiac Enzymes 10/19/17 Range/Units 00:46 Troponin I < 0.03 (< 0.04) ng/mL - Attending Attestation I have seen and examined this patient independently. I have discussed with resident physician Dr. Gomes regarding the management plan. Agree with the documentation. - Assessment and plan (1) Diabetes mellitus Current Visit: Yes Status: Chronic Qualifiers: Diabetes mellitus type: type 2 Diabetes mellitus retirement insulin use: without rodent exterminator use Diabetes mellitus complication status: without complication Qualified Code(s): E11.9 - Type 2 diabetes mellitus without complications (2) DVT prophylaxis Current Visit: Yes Status: Acute (3) COPD exacerbation Current Visit: Yes Status: Acute (4) Neck pain on left side Current Visit: Yes Status: Acute (5) Morbid obesity with body mass index (BMI) of 50.0 to 59.9 in adult Current Visit: Yes Status: Acute (6) Hypertension Current Visit: Yes Status: Acute Qualifiers: Qualified Code(s): I10 - Essential (primary) hypertension (7) Acute respiratory failure with hypercapnia Current Visit: Yes Status: Acute (8) Hyperlipidemia Current Visit: Yes Status: Acute Qualifiers: Qualified Code(s): E78.5 - Hyperlipidemia, unspecified - Time Spent With Patient Total time spent is greater than 50% in coordination of care (as documented) at patient's floor/unit and/or counseling patient:
[2017-10-19 01:00] LABS: Hematocrit 33.5 % (35.3-44.9); Hemoglobin 10.5 g/dL (11.5-15.4); Mean Corpuscular HGB Conc 31.3 g/dL (31.6-35.5); Mean Corpuscular Hemoglobin 27.6 pg (28.0-33.3); Mean Corpuscular Volume 87.9 fL (83.0-100.0); Mean Platelet Volume 12.2 fL (9.4-12.4); Platelet Count 128 K/mcL (140-400); Red Blood Count 3.81 M/mcL (3.82-4.97); Red Cell Distribution Width 13.1 % (11.5-14.5)
[2017-10-19] MEDS ORDERED: hydrALAZINE 10 MG TABLET PO PRN (01:18)
[2017-10-19 01:19] LABS: BUN/Creatinine Ratio 17 (6-26); Blood Urea Nitrogen 10 mg/dL (8-23); Calcium 9.4 mg/dL (8.6-10.3); Carbon Dioxide 38 mEq/L (23-29); Chloride 95 mEq/L (98-107); Glucose 313 mg/dL (70-105); Osmolality,Calculated 293 (280-300); Potassium 4.3 mEq/L (3.5-5.1); Sodium 136 mEq/L (136-145); eGFR For African Americans > 60 (> 60); eGFR For Non-African Americans > 60 (> 60)
[2017-10-19] MEDS ORDERED: levoFLOXacin 750 MG TABLET PO ONE (01:30)
[2017-10-19] MEDS: Ipratropium/Albuterol Neb 3 ML IH SCH ×4 (04:43→22:05)
[2017-10-19] MEDS: *HR* Heparin 5,000 UNIT/ML VIAL SQ SCH ×2 (05:23→18:54)
[2017-10-19] MEDS ORDERED: Ipratropium/Albuterol Neb 3 ML IH PRN (06:04)
[2017-10-19] MEDS ORDERED: Insulin LISPRO 300 UNITS/3 ML VIAL SQ SCH ×2 (07:30→21:00)
[2017-10-19] MEDS ORDERED: MethylPREDNISolone 40 MG/ML VIAL IVP SCH (08:00)
[2017-10-19] MEDS: Lisinopril 20 MG TABLET PO SCH (08:43)
[2017-10-19] MEDS: predniSONE 20 MG TABLET PO SCH (08:43)
[2017-10-19] MEDS: Aspirin Enteric Coated 81 MG Tablet PO SCH (08:43)
[2017-10-19] MEDS: Insulin LISPRO 300 UNITS/3 ML VIAL SQ SCH ×4 (08:44→21:47)
[2017-10-19] MEDS: Folic Acid 1 MG TABLET PO SCH (08:44)
[2017-10-19] MEDS: Budesonide/Formoterol 160/4.5 MDI IH SCH (10:26)
--- NOTE | 2017-10-19 16:28 | Event Note ---
Date of Encounter: 10/19/17 Time of Encounter: 16:15 (1) COPD exacerbation acute respiratory failure with hypercapnia. Sx's improved with IV steroids, Levaquin and bronchodilators. Rested for a PCR, urinary antigens pending (2) Acute respiratory failure with hypercapnia see above (3) Neck pain on left side radiates to left arm. no neurological deficits. Continue to monitor during hospitalization. HEART score 4 (age, HLD, t2dm, morbid obesity). Serial troponin negative. No ischemia found on EKG. last echo 08/2016 - no abnormal findings. C-spine CT pending (4) Morbid obesity with body mass index (BMI) of 50.0 to 59.9 in adult educated patient on weight loss, and recommended patient to have referral to bariatric surgery. (5) Diabetes mellitus per hx. holding home Rx. SSI. Monitor blood sugar and titrate PRN (6) Hypertension known history of HTN. BP elevated on arrival. BP improved with resuming home BP medication. Monitor BP and titrate PRN (7) DVT prophylaxis heparin (8) Hyperlipidemia continue home statin
--- NOTE | 2017-10-19 16:35 | Electrocardiograph Report ---
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
[2017-10-20] MEDS: Ipratropium/Albuterol Neb 3 ML IH SCH ×4 (04:56→22:15)
[2017-10-20] MEDS: *HR* Heparin 5,000 UNIT/ML VIAL SQ SCH ×2 (05:53→18:33)
[2017-10-20] MEDS: predniSONE 20 MG TABLET PO SCH (09:52)
[2017-10-20] MEDS: Folic Acid 1 MG TABLET PO SCH (09:52)
[2017-10-20] MEDS: Aspirin Enteric Coated 81 MG Tablet PO SCH (09:52)
[2017-10-20] MEDS: Insulin LISPRO 300 UNITS/3 ML VIAL SQ SCH ×4 (09:52→20:56)
[2017-10-20] MEDS: Budesonide/Formoterol 160/4.5 MDI IH SCH (10:52)
[2017-10-20] MEDS ORDERED: Ondansetron 4 MG/2 ML VIAL IVP PRN (13:25)
[2017-10-20 14:01] LABS: Hematocrit 33.8 % (35.3-44.9); Hemoglobin 10.3 g/dL (11.5-15.4); Mean Corpuscular HGB Conc 30.5 g/dL (31.6-35.5); Mean Corpuscular Hemoglobin 27.5 pg (28.0-33.3); Mean Corpuscular Volume 90.1 fL (83.0-100.0); Mean Platelet Volume 12.3 fL (9.4-12.4); Platelet Count 147 K/mcL (140-400); Red Blood Count 3.75 M/mcL (3.82-4.97); Red Cell Distribution Width 13.7 % (11.5-14.5)
[2017-10-20 14:18] LABS: Calcium 9.8 mg/dL (8.6-10.3); Potassium 4.4 mEq/L (3.5-5.1)
[2017-10-20] MEDS: Lisinopril 20 MG TABLET PO SCH (14:26)
--- NOTE | 2017-10-20 15:03 | Internal Med Progress Note ---
Date of Encounter: 10/20/17 Time of Encounter: 15:01 - Assessment and plan (1) COPD exacerbation Current Visit: Yes Status: Acute Assessment and plan: With chronic respiratory failure (wears oxygen at 3 L a [id number] at home) . Symptomatically with worsening shortness of breath and wheezing. Symptoms improved with IV Levaquin, steroids and bronchodilators. Rested for a PCR, urinary antigens pending. (2) Neck pain on left side Current Visit: Yes Status: Acute Assessment and plan: radiates to left arm. no neurological deficits. Continue to monitor during hospitalization. HEART score 4 (age, HLD, t2dm, morbid obesity). Serial troponin negative. No ischemia found on EKG. last echo 08/2016 - no abnormal findings. Cervical CT with no convincing evidence of an acute abnormality, minimal degenerative changes. Discussed the possibility of stress test with patient and she is refusing due to previous experience. Repeat echo. (3) Diabetes mellitus Current Visit: Yes Status: Chronic Assessment and plan: pwe hx. [place] home oral hypoglycemics. SSI. Monitor blood sugar and titrate PRN Qualifiers: Diabetes mellitus type: type 2 Diabetes mellitus correction insulin use: without terminal gauger use Diabetes mellitus complication status: without complication Qualified Code(s): E11.9 - Type 2 diabetes mellitus without complications (4) Morbid obesity with body mass index (BMI) of 50.0 to 59.9 in adult Current Visit: Yes Status: Acute Assessment and plan: educated patient on weight loss, and recommended patient to have referral to bariatric surgery. (5) Hypertension Current Visit: Yes Status: Acute Assessment and plan: known history of HTN. BP elevated on arrival. BP improved with resuming home BP medication. Monitor BP and titrate PRN Qualifiers: Qualified Code(s): I10 - Essential (primary) hypertension (6) Hyperlipidemia Current Visit: Yes Status: Acute Assessment and plan: continue home statin Qualifiers: Qualified Code(s): E78.5 - Hyperlipidemia, unspecified (7) DVT prophylaxis Current Visit: Yes Status: Acute Assessment and plan: heparin - Time Spent With Patient Total time spent is greater than 50% in coordination of care (as documented) at patient's floor/unit and/or counseling patient: - Subjective Interval history: Seen and examined at bedside. Patient is new to me, information obtained from chart review and patient report. Overall says she feels better, still having left-sided neck pain that radiates to left shoulder blade. Discussed doing inpatient stress test however she is refusing due to previous experience with stress testing. No active chest pain or shortness of breath. Has a nonproductive cough. - Constitutional Vitals: Temp Pulse Resp BP Pulse Ox 98.1 F 72 16 103/50 98 10/20/17 11:07 10/20/17 11:07 10/20/17 11:07 10/20/17 11:07 10/20/17 11:07 General appearance: Present: cooperative, A&O X 3, morbidly obese, no acute distress, answers questions appropriately - Head Head exam: Present: atraumatic, normocephalic - Eye Eye exam: Present: PERRL, conjuntiva pink, sclera anicteric Pupils: Present: PERRL - Neck Neck exam general surgery: Present: supple, trachea midline. Absent: lymphadenopathy - Respiratory Respiratory exam: Present: CTAB. Absent: accessory muscle use, rales, rhonchi, wheezes - Cardiovascular Cardiovascular exam: Present: RRR, +S1, +S2. Absent: diastolic murmur, gallop, rubs, systolic murmur - GI/Abdominal GI/Abdominal exam: Present: normal bowel sounds, soft, no peritoneal signs. Absent: distended, tenderness - Extremities Exam Extremities exam: Present: warm, radial pulses palpable and symmetrical. Absent : calf tenderness, cyanotic, pedal edema - Neurological Exam Neurological exam: Present: CN II-XII intact, oriented X3, no focal deficits. Absent: pronater drift, facial droop, speech deficit - Skin Skin exam: Present: dry, intact Internal Medicine: Result - Labs CBC & Chem 7: 10/20/17 13:51 10/20/17 13:51 Labs: Short CBC 10/20/17 Range/Units 13:51 WBC 6.5 (4.3-11.1) K/mcL Hgb 10.3 L (11.5-15.4) g/dL Hct 33.8 L (35.3-44.9) % Plt Count 147 (140-400) K/mcL BMP 10/20/17 13:51 Sodium 136 Potassium 4.4 Chloride 95 L Carbon Dioxide 37 H BUN 26 H Creatinine 1.13 Glucose 274 H Calcium 9.8 - ABG Interpretation ABG results: PT/INR, D-dimer PT 11.5 Seconds (9.4-12.1) 10/18/17 18:37 Consult Discharge Plan - Plan Referrals: Rosa Whitt CNP [Primary Care Provider] - 10/25/17 9:00 am
--- NOTE | 2017-10-20 15:13 | Event Note ---
Date of Encounter: 10/20/17 Time of Encounter: 15:12 This note is a late entry for 10/19/2017 [facility] any member of the utilization review committee has determined that the status is to be changed observation using condition code 44 by Michell Jones CNP am in agreement that the status is to be changed observation
[2017-10-21] MEDS: Ipratropium/Albuterol Neb 3 ML IH SCH ×4 (03:59→20:54)
[2017-10-21 06:03] LABS: Hematocrit 31.2 % (35.3-44.9); Hemoglobin 9.6 g/dL (11.5-15.4); Mean Corpuscular HGB Conc 30.8 g/dL (31.6-35.5); Mean Corpuscular Hemoglobin 27.6 pg (28.0-33.3); Mean Corpuscular Volume 89.7 fL (83.0-100.0); Platelet Count 132 K/mcL (140-400); Red Blood Count 3.48 M/mcL (3.82-4.97); Red Cell Distribution Width 13.7 % (11.5-14.5)
[2017-10-21] MEDS: *HR* Heparin 5,000 UNIT/ML VIAL SQ SCH ×2 (06:09→17:48)
[2017-10-21 06:33] LABS: BUN/Creatinine Ratio 33 (6-26); Blood Urea Nitrogen 32 mg/dL (8-23); Calcium 9.4 mg/dL (8.6-10.3); Carbon Dioxide 40 mEq/L (23-29); Chloride 97 mEq/L (98-107); Glucose 147 mg/dL (70-105); Osmolality,Calculated 296 (280-300); Potassium 4.1 mEq/L (3.5-5.1); Sodium 138 mEq/L (136-145); eGFR For African Americans > 60 (> 60); eGFR For Non-African Americans 58 (> 60)
[2017-10-21] MEDS: Insulin LISPRO 300 UNITS/3 ML VIAL SQ SCH ×4 (07:37→21:24)
[2017-10-21] MEDS: predniSONE 20 MG TABLET PO SCH (07:38)
[2017-10-21] MEDS: Lisinopril 20 MG TABLET PO SCH (07:38)
[2017-10-21] MEDS: Folic Acid 1 MG TABLET PO SCH (07:38)
[2017-10-21] MEDS: Aspirin Enteric Coated 81 MG Tablet PO SCH (07:39)
[2017-10-21] MEDS ORDERED: Perflutren Lipid Microsphere 1.3 ML in 0.9 % Sodium Chloride 8.7 ML IVP ONE (10:28)
[2017-10-21] MEDS: Budesonide/Formoterol 160/4.5 MDI IH SCH (11:39)
--- NOTE | 2017-10-21 15:17 | Internal Med Progress Note ---
Date of Encounter: 10/21/17 Time of Encounter: 15:14 - Assessment and plan (1) COPD exacerbation Current Visit: Yes Status: Acute Assessment and plan: With chronic respiratory failure (wears oxygen at 3 L [id number] at home) . Symptomatic with worsening shortness of breath and wheezing. Symptoms improved with IV Levaquin, steroids and bronchodilators. Resp PCR, urinary antigens pending. (2) Neck pain on left side Current Visit: Yes Status: Acute Assessment and plan: radiates to left arm. no neurological deficits. Continue to monitor during hospitalization. HEART score 4 (age, HLD, t2dm, morbid obesity). Serial troponin negative. No ischemia found on EKG. last echo 08/2016 - no abnormal findings. Cervical CT with no convincing evidence of an acute abnormality, minimal degenerative changes. Discussed the possibility of stress test with patient and she is refusing due to previous experience. Repeat echo pending (3) Diabetes mellitus Current Visit: Yes Status: Chronic Assessment and plan: pwe hx. [place] home oral hypoglycemics. SSI. Monitor blood sugar and titrate PRN. 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 (5) Hypertension Current Visit: Yes Status: Acute Assessment and plan: known history of HTN. BP elevated on arrival. BP improved with resuming home BP medication. Monitor BP and titrate PRN Qualifiers: Qualified Code(s): I10 - Essential (primary) hypertension (6) Hyperlipidemia Current Visit: Yes Status: Acute Assessment and plan: continue home statin Qualifiers: Qualified Code(s): E78.5 - Hyperlipidemia, unspecified (7) Candidal intertrigo Current Visit: Yes Status: Acute Assessment and plan: To bilateral skin folds. Add nystatin powder. Advised to use pillowcases to keep skin off skin. (8) DVT prophylaxis Current Visit: Yes Status: Acute Assessment and plan: heparin - Time Spent With Patient Total time spent is greater than 50% in coordination of care (as documented) at patient's floor/unit and/or counseling patient: - Subjective Interval history: Seen and examined at bedside. She is short winded and out of breath after just returning to bed. Says she thinks he needs 1 more night. She also reports she does not have transportation home today. Planing of yeast infection to bilateral breast folds. No chest pain. Having intermittent neck pain but overall improved - Constitutional Vitals: Temp Pulse Resp BP Pulse Ox 97.7 F 75 18 138/63 96 10/21/17 15:00 10/21/17 15:00 10/21/17 15:00 10/21/17 15:00 10/21/17 15:00 General appearance: Present: cooperative, A&O X 3, morbidly obese, no acute distress, answers questions appropriately - Head Head exam: Present: atraumatic, normocephalic - Eye Eye exam: Present: PERRL, conjuntiva pink, sclera anicteric Pupils: Present: PERRL - Neck Neck exam general surgery: Present: supple, trachea midline. Absent: lymphadenopathy - Respiratory Respiratory exam: Present: CTAB. Absent: accessory muscle use, rales, rhonchi, wheezes - Cardiovascular Cardiovascular exam: Present: RRR, +S1, +S2. Absent: diastolic murmur, gallop, rubs, systolic murmur - GI/Abdominal GI/Abdominal exam: Present: normal bowel sounds, soft, no peritoneal signs. Absent: distended, tenderness - Extremities Exam Extremities exam: Present: warm, radial pulses palpable and symmetrical. Absent : calf tenderness, cyanotic, pedal edema - Neurological Exam Neurological exam: Present: CN II-XII intact, oriented X3, no focal deficits. Absent: pronater drift, facial droop, speech deficit - Skin Skin exam: Present: dry Additional comments: Yeast infection underneath bilateral breasts fold Internal Medicine: Result - Labs CBC & Chem 7: 10/21/17 05:40 10/21/17 05:40 Labs: Short CBC 10/21/17 Range/Units 05:40 WBC 5.9 (4.3-11.1) K/mcL Hgb 9.6 L (11.5-15.4) g/dL Hct 31.2 L (35.3-44.9) % Plt Count 132 L (140-400) K/mcL BMP 10/21/17 05:40 Sodium 138 Potassium 4.1 Chloride 97 L Carbon Dioxide 40 H* BUN 32 H Creatinine 0.97 Glucose 147 H Calcium 9.4 - ABG Interpretation ABG results: PT/INR, D-dimer PT 11.5 Seconds (9.4-12.1) 10/18/17 18:37 Consult Discharge Plan - Plan Referrals: Rosa Whitt CNP [Primary Care Provider] - 10/25/17 9:00 am
[2017-10-21] MEDS: Nystatin POWDER 30 GM BOTTLE TP SCH (21:24)
[2017-10-22] MEDS: Ipratropium/Albuterol Neb 3 ML IH SCH ×4 (04:05→22:24)
[2017-10-22] MEDS: *HR* Heparin 5,000 UNIT/ML VIAL SQ SCH ×2 (05:57→18:01)
[2017-10-22] MEDS: Insulin LISPRO 300 UNITS/3 ML VIAL SQ SCH ×4 (07:52→21:01)
[2017-10-22] MEDS: predniSONE 20 MG TABLET PO SCH (07:53)
[2017-10-22] MEDS: Nystatin POWDER 30 GM BOTTLE TP SCH ×3 (07:54→21:01)
[2017-10-22] MEDS: Aspirin Enteric Coated 81 MG Tablet PO SCH (07:54)
[2017-10-22] MEDS: Folic Acid 1 MG TABLET PO SCH (07:54)
[2017-10-22] MEDS: Lisinopril 20 MG TABLET PO SCH (07:55)
[2017-10-22] MEDS: Budesonide/Formoterol 160/4.5 MDI IH SCH (11:41)
[2017-10-22 12:44] LABS: BUN/Creatinine Ratio 39 (6-26); Blood Urea Nitrogen 28 mg/dL (8-23); Calcium 9.2 mg/dL (8.6-10.3); Carbon Dioxide 32 mEq/L (23-29); Chloride 100 mEq/L (98-107); Glucose 276 mg/dL (70-105); Osmolality,Calculated 299 (280-300); Potassium 5.2 mEq/L (3.5-5.1); Sodium 137 mEq/L (136-145); eGFR For African Americans > 60 (> 60); eGFR For Non-African Americans > 60 (> 60)
[2017-10-22] MEDS ORDERED: Isovue-370 500 ML INFUS..BTL IV ONE (13:22)
--- NOTE | 2017-10-22 13:28 | Internal Med Progress Note ---
Date of Encounter: 10/22/17 Time of Encounter: 13:25 - Assessment and plan (1) COPD exacerbation Current Visit: Yes Status: Acute Assessment and plan: With chronic respiratory failure (wears oxygen at 3 L [id number] at home) . Symptomatic with worsening shortness of breath and wheezing. Chest CTA negative for pulmonary embolism but concerning for bilateral pneumonia. Start IV Levaquin. Cont steroids and bronchodilators. Resp PCR, urinary antigens pending. (2) Neck pain on left side Current Visit: Yes Status: Acute Assessment and plan: radiates to left arm. no neurological deficits. Continue to monitor during hospitalization. HEART score 4 (age, HLD, t2dm, morbid obesity). Serial troponin negative. No ischemia found on EKG. last echo 08/2016 - no abnormal findings. Cervical CT with no convincing evidence of an acute abnormality, minimal degenerative changes. Discussed the possibility of stress test with patient and she is refusing due to previous experience. Suspect left neck pain secondary to degenerative changes. Symptoms improved at time of discharge. (3) Diabetes mellitus Current Visit: Yes Status: Chronic Assessment and plan: pwe hx. Cont home diabetes medication regimen. Qualifiers: Diabetes mellitus type: type 2 Diabetes mellitus emt intermediate insulin use: without emt intermediate use Diabetes mellitus complication status: without complication Qualified Code(s): E11.9 - Type 2 diabetes mellitus without complications (4) Morbid obesity with body mass index (BMI) of 50.0 to 59.9 in adult Current Visit: Yes Status: Acute Assessment and plan: educated patient on weight loss, and recommended patient to have referral to bariatric surgery. (5) Hypertension Current Visit: Yes Status: Acute Assessment and plan: known history of HTN. BP elevated on arrival. BP improved with resuming home BP medication. Qualifiers: Hypertension type: essential hypertension Qualified Code(s): I10 - Essential (primary) hypertension (6) Hyperlipidemia Current Visit: Yes Status: Acute Assessment and plan: continue home statin Qualifiers: Hyperlipidemia type: pure hypercholesterolemia Qualified Code(s): E78.00 - Pure hypercholesterolemia, unspecified; E78.0 - Pure hypercholesterolemia (7) Candidal intertrigo Current Visit: Yes Status: Acute Assessment and plan: To bilateral breast skin folds. Improved with nystatin powder. Advised to use pillowcases to keep skin off skin. (8) DVT prophylaxis Current Visit: Yes Status: Deleted Assessment and plan: heparin - Time Spent With Patient Total time spent is greater than 50% in coordination of care (as documented) at patient's floor/unit and/or counseling patient: - Subjective Interval history: Seen and examined at bedside. She is short winded and out of breath after just returning to bed. Says she thinks he needs 1 more night. She also reports she does not have transportation home today. Planing of yeast infection to bilateral breast folds. No chest pain. Having intermittent neck pain but overall improved - Constitutional Vitals: Temp Pulse Resp BP Pulse Ox 98.8 F 67 16 148/71 98 10/22/17 11:17 10/22/17 11:17 10/22/17 11:41 10/22/17 11:17 10/22/17 11:41 General appearance: Present: cooperative, A&O X 3, morbidly obese, no acute distress, answers questions appropriately - Head Head exam: Present: atraumatic, normocephalic - Eye Eye exam: Present: PERRL, conjuntiva pink, sclera anicteric Pupils: Present: PERRL - Neck Neck exam general surgery: Present: supple, trachea midline. Absent: lymphadenopathy - Respiratory Respiratory exam: Present: CTAB. Absent: accessory muscle use, rales, rhonchi, wheezes - Cardiovascular Cardiovascular exam: Present: RRR, +S1, +S2. Absent: diastolic murmur, gallop, rubs, systolic murmur - GI/Abdominal GI/Abdominal exam: Present: normal bowel sounds, soft, no peritoneal signs. Absent: distended, tenderness - Extremities Exam Extremities exam: Present: warm, radial pulses palpable and symmetrical. Absent : calf tenderness, cyanotic, pedal edema - Neurological Exam Neurological exam: Present: CN II-XII intact, oriented X3, no focal deficits. Absent: pronater drift, facial droop, speech deficit - Skin Skin exam: Present: dry, intact Internal Medicine: Result - Labs CBC & Chem 7: 10/21/17 05:40 10/22/17 11:48 Labs: BMP 10/22/17 11:48 Sodium 137 Potassium 5.2 H Chloride 100 Carbon Dioxide 32 H BUN 28 H Creatinine 0.72 Glucose 276 H Calcium 9.2 - ABG Interpretation ABG results: PT/INR, D-dimer PT 11.5 Seconds (9.4-12.1) 10/18/17 18:37 - Impressions Impressions Echocardiogram 10/21/17 15:13 Impressions: LVEF 60-65%. Normal LV chamber size, wall thickness and function. Mild left ventricular diastolic dysfunction. Grossly normal right ventricular structure and function. No evidence of pulmonary hypertension identified. RVSP was not well obtained. No significant valvular dysfunction. Left Ventricular Wall Motion: Rest Echo Findings All wall segments showed normal motion. Findings: Study Quality * Technically adequate exam. ECG Findings * Normal sinus rhythm. Left Ventricle * LVEF 60-65%. * Normal LV chamber size, wall thickness and function. * Mild left ventricular diastolic dysfunction. Right Ventricle * Grossly normal right ventricular structure and function. Left Atrium * Normal left atrial size. Right Atrium * Normal right atrial size. Aortic Valve * Trileaflet aortic valve. * Mildly sclerotic aortic valve leaflets. * No aortic regurgitation. * No aortic stenosis. Mitral Valve * Mild mitral annular calcification * No mitral stenosis. * No mitral regurgitation. Tricuspid Valve * Normal tricuspid valve structure and function. * Trace tricuspid regurgitation. * No evidence of pulmonary hypertension identified. RVSP was not well obtained. Pulmonic Valve * Normal pulmonic valve structure and function. * No pulmonic regurgitation. Aorta * Normally sized aortic root. Pericardium * The pericardium appears normal. IVC * Normal IVC dimensions and inspiratory collapse. Pulmonary Artery * Normal visualized portions of the main pulmonary artery. Consult Discharge Plan - Plan Instructions: Nystatin (On the skin), Chronic Obstructive Pulmonary Disease (DC ) Referrals: Rosa Whitt, BRENA [Primary Care Provider] - 10/25/17 9:00 am Prescriptions: Nystatin POWDER [Nystop] 1 appl TP TID #1 bottle predniSONE [PredniSONE] 40 mg PO DAILY #2 tablet
[2017-10-22] MEDS ORDERED: 0.9 % Sodium Chloride 1,000 ML IVC SCH (13:30)
--- NOTE | 2017-10-22 13:38 | Discharge Summary ---
Orders not resulted at time of discharge: Pending orders 10/22/17 13:22 CTA chest [CT angio chest] [CT] Routine Date of Encounter: 10/22/17 Time of Encounter: 13:33 - Discharge Diagnosis (1) COPD exacerbation Status: Acute Assessment and Plan: With chronic respiratory failure (wears oxygen at 3 L [id number] at home) . Symptomatic with worsening shortness of breath and wheezing. Symptoms improved with steroids and bronchodilators. Discharge home on oral steroid. Cont home inhalers (2) Neck pain on left side Status: Acute Assessment and Plan: radiates to left arm. no neurological deficits. Continue to monitor during hospitalization. HEART score 4 (age, HLD, t2dm, morbid obesity). Serial troponin negative. No ischemia found on EKG. last echo 08/2016 - no abnormal findings. Cervical CT with no convincing evidence of an acute abnormality, minimal degenerative changes. Discussed the possibility of stress test with patient and she is refusing due to previous experience. Suspect left neck pain secondary to degenerative changes. Symptoms improved at time of discharge. (3) Diabetes mellitus Status: Chronic Assessment and Plan: pwe hx. Cont home diabetes medication regimen. 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 (5) Hypertension Status: Acute Assessment and Plan: known history of HTN. BP elevated on arrival. BP improved with resuming home BP medication. (6) Hyperlipidemia Status: Acute Assessment and Plan: continue home statin (7) Candidal intertrigo Status: Acute Assessment and Plan: To bilateral breast skin folds. Improved with nystatin powder. Advised to use pillowcases to keep skin off skin. Hospital course: See assessment and plan for hospital course Discharge discussed with: patient (Seen and examined at bedside. Patient says she feels better and would like to go home today if possible. Still has some shortness of breath that is worse with exertion but overall improved. No chest pain. Still has intermittent left-sided neck pain that radiates to shoulder blades. We discussed again the option of a stress test that she continues to decline. Plan to discharge home later today once CTA completed and if negative for pulmonary embolism.) - Time Spent with Patient Total time spent providing and/or coordinating discharge services: - Discharge Medications Prescriptions: Nystatin POWDER [Nystop] 1 appl TP TID #1 bottle predniSONE [PredniSONE] 40 mg PO DAILY #2 tablet Home Medications: Albuterol Sulfate [Ventolin Hfa] 2 puff IH Q4H PRN 08/28/16 [History] Ferrous Sulfate [Iron] 325 mg PO DAILY 08/28/16 [History] Folic Acid 1 mg PO DAILY 08/28/16 [History] Lisinopril [Zestril] 20 mg PO DAILY 08/28/16 [History] Umeclidinium [place] [Incruse Ellipta] 1 puff IH DAILY 08/28/16 [History] Metformin HCl [Metformin HCl ER] 500 mg PO BID #60 tab 09/02/16 [Rx] glipiZIDE [Glucotrol] 5 mg PO BIDWM #60 tablet 09/02/16 [Rx] Albuterol Neb [Proventil Neb] 2.5 mg IH TID PRN 10/18/17 [History] Aspirin [Lo-Dose Aspirin EC] 81 mg PO DAILY 10/18/17 [History] Atorvastatin Calcium [Lipitor] 80 mg PO HS 10/18/17 [History] Fluticasone/Salmeterol [Advair Hfa 230-21 Mcg Inhaler] 2 puff IH DAILY 10/18/17 [History] Nystatin POWDER [Nystop] 1 appl TP TID #1 bottle 10/22/17 [Rx] predniSONE [PredniSONE] 40 mg PO DAILY #2 tablet 10/22/17 [Rx] Allergies/Adverse Reactions: 3 Allergy/AdvReac Type Severity Reaction Status Date / Time Hydromorphone [From Dilaudid] AdvReac HYPERTENSION,DIZZINESS,HOT Verified 10/18 20:11 FLASHES Date of admission: 10/18/17 21:43 Primary care physician: Rosa Whitt CNP Discharging clinician: Michell Jones Anticipated date of discharge: 10/22/17 - Constitutional Vitals: Temp Pulse Resp BP Pulse Ox 98.8 F 67 16 148/71 98 10/22/17 11:17 10/22/17 11:17 10/22/17 11:41 10/22/17 11:17 10/22/17 11:41 General appearance: Present: cooperative, A&O X 3, morbidly obese, no acute distress, answers questions appropriately - Head Head exam: Present: atraumatic, normocephalic - Eye Eye exam: Present: PERRL, conjuntiva pink, sclera anicteric Pupils: Present: PERRL - Neck Neck exam general surgery: Present: supple, trachea midline. Absent: lymphadenopathy - Respiratory Respiratory exam: Present: CTAB. Absent: accessory muscle use, rales, rhonchi, wheezes - Cardiovascular Cardiovascular exam: Present: RRR, +S1, +S2. Absent: diastolic murmur, gallop, rubs, systolic murmur - GI/Abdominal GI/Abdominal exam: Present: normal bowel sounds, soft, no peritoneal signs. Absent: distended, tenderness - Extremities Exam Extremities exam: Present: warm, radial pulses palpable and symmetrical. Absent : calf tenderness, cyanotic, pedal edema - Neurological Exam Neurological exam: Present: CN II-XII intact, oriented X3, no focal deficits. Absent: pronater drift, facial droop, speech deficit - Skin Skin exam: Present: dry, intact - Patient Status Disposition: Home, Self-Care Condition: Good Functional capacity at discharge: uses cane/walker Overall status at discharge: patient is back to baseline - Discharge Instructions Instructions: Nystatin (On the skin), Chronic Obstructive Pulmonary Disease (DC ) Follow Up With: Rosa Whitt COST CONTROL ANALYST [Primary Care Provider] - 10/25/17 9:00 am - Diet and Activity Activity: increase activity as tolerated Diet: diabetic diet, low fat, low cholesterol
--- NOTE | 2017-10-22 15:16 | Physician Discharge Referral ---
Home Health/Hosp Referral Info Transfer to: Home Health Attending Provider: Michell Jones CNP Provider in Charge Post Discharge: PCP - Diagnosis (1) COPD exacerbation Status: Acute (2) Neck pain on left side Status: Acute (3) Diabetes mellitus Status: Chronic (4) Morbid obesity with body mass index (BMI) of 50.0 to 59.9 in adult Status: Acute (5) Hypertension Status: Acute (6) Hyperlipidemia Status: Acute (7) Candidal intertrigo Status: Acute - Respiratory Orders Oxygen / L per min (3) Smoking Cessation: Smoking cessation has been advised. For more information, call the [place] Tobacco Quit Line at 5-103-LOWJ-NOW. - Diet/Nutrition Diet/Nutrition Orders: Cardiac, No Concentrated Sweets - Activity Activity Orders: Ambulate, Walker - Services Needed Following services are medically necessary services: Nursing, Home Health Aide, Physical Therapy, Occupational Therapy - Transfer Medications Prescriptions: Nystatin POWDER [Nystop] 1 appl TP TID #1 bottle predniSONE [PredniSONE] 40 mg PO DAILY #2 tablet Home Medications: Albuterol Sulfate [Ventolin Hfa] 2 puff IH Q4H PRN 08/28/16 [History] Ferrous Sulfate [Iron] 325 mg PO DAILY 08/28/16 [History] Folic Acid 1 mg PO DAILY 08/28/16 [History] Lisinopril [Zestril] 20 mg PO DAILY 08/28/16 [History] Umeclidinium [place] [Incruse Ellipta] 1 puff IH DAILY 08/28/16 [History] Metformin HCl [Metformin HCl ER] 500 mg PO BID #60 tab 09/02/16 [Rx] glipiZIDE [Glucotrol] 5 mg PO BIDWM #60 tablet 09/02/16 [Rx] Albuterol Neb [Proventil Neb] 2.5 mg IH TID PRN 10/18/17 [History] Aspirin [Lo-Dose Aspirin EC] 81 mg PO DAILY 10/18/17 [History] Atorvastatin Calcium [Lipitor] 80 mg PO HS 10/18/17 [History] Fluticasone/Salmeterol [Advair Hfa 230-21 Mcg Inhaler] 2 puff IH DAILY 10/18/17 [History] Nystatin POWDER [Nystop] 1 appl TP TID #1 bottle 10/22/17 [Rx] predniSONE [PredniSONE] 40 mg PO DAILY #2 tablet 10/22/17 [Rx] Allergies/Adverse Reactions: 3 Allergy/AdvReac Type Severity Reaction Status Date / Time Hydromorphone [From Dilaudid] AdvReac HYPERTENSION,DIZZINESS,HOT Verified 10/18 20:11 FLASHES Certification: Further, I certify that my clinical findings support that this patient is homebound (i.e. absences from home require considerable and taxing effort and are for medical reasons or rastafari services or infrequently or short duration when for other reasons) because: Homebound Reason: Patient requires assistance of a person or device to safely leave home Attestation: My signature below is to certify that this patient is under my care and that I, or nurse practitioner, or a physician's engineer second assistant working with me, has a face-to -face encounter with this patient.
[2017-10-22] MEDS: Levofloxacin 750 MG/150 ML 750 MG/150 ML BAG IVPB SCH (18:01)
[2017-10-22 20:25] LABS: Alanine Aminotransferase 18 Units/L (7-52); Albumin 3.2 g/dL (3.5-5.7); Albumin/Globulin Ratio 1.3 (1.1-2.2); Alkaline Phosphatase 77 Units/L (34-104); Aspartate Amino Transferase 39 Units/L (13-39); BUN/Creatinine Ratio 38 (6-26); Bilirubin,Total 0.7 mg/dL (0.3-1.0); Blood Urea Nitrogen 27 mg/dL (8-23); Calcium 9.1 mg/dL (8.6-10.3); Carbon Dioxide 32 mEq/L (23-29); Chloride 99 mEq/L (98-107); Globulin 2.5 g/dL (2.4-3.5); Glucose 310 mg/dL (70-105); Osmolality,Calculated 299 (280-300); Potassium 5.3 mEq/L (3.5-5.1); Sodium 136 mEq/L (136-145); Total Protein 5.7 g/dL (6.4-8.9); eGFR For African Americans > 60 (> 60); eGFR For Non-African Americans > 60 (> 60)
[2017-10-23] MEDS: Ipratropium/Albuterol Neb 3 ML IH SCH ×4 (03:39→22:32)
[2017-10-23] MEDS: *HR* Heparin 5,000 UNIT/ML VIAL SQ SCH ×2 (06:08→17:57)
[2017-10-23] MEDS: Budesonide/Formoterol 160/4.5 MDI IH SCH (09:25)
[2017-10-23] MEDS: predniSONE 20 MG TABLET PO SCH (09:45)
[2017-10-23] MEDS: Aspirin Enteric Coated 81 MG Tablet PO SCH (09:45)
[2017-10-23] MEDS: Nystatin POWDER 30 GM BOTTLE TP SCH ×3 (09:47→21:45)
[2017-10-23] MEDS: Levofloxacin 750 MG/150 ML 750 MG/150 ML BAG IVPB SCH (09:48)
[2017-10-23] MEDS: Insulin LISPRO 300 UNITS/3 ML VIAL SQ SCH ×4 (09:56→21:43)
[2017-10-23] MEDS: Lisinopril 20 MG TABLET PO SCH (09:56)
[2017-10-23] MEDS: Folic Acid 1 MG TABLET PO SCH (09:56)
--- NOTE | 2017-10-23 14:12 | Internal Med Progress Note ---
Date of Encounter: 10/23/17 Time of Encounter: 14:10 - Assessment and plan (1) COPD exacerbation Current Visit: Yes Status: Acute Assessment and plan: With chronic respiratory failure (wears oxygen at 3 L [id number] at home) . Symptomatic with worsening shortness of breath and wheezing. Chest CTA negative for pulmonary embolism but concerning for bilateral pneumonia. Start IV Levaquin. Cont steroids and bronchodilators. Resp PCR, urinary antigens pending. (2) Neck pain on left side Current Visit: Yes Status: Acute Assessment and plan: radiates to left arm. no neurological deficits. Continue to monitor during hospitalization. HEART score 4 (age, HLD, t2dm, morbid obesity). Serial troponin negative. No ischemia found on EKG. last echo 08/2016 - no abnormal findings. Cervical CT with no convincing evidence of an acute abnormality, minimal degenerative changes. Discussed the possibility of stress test with patient and she is refusing due to previous experience. Suspect left neck pain secondary to degenerative changes. Symptoms improved (3) Diabetes mellitus Current Visit: Yes Status: Chronic Assessment and plan: per hx. Cont home diabetes medication regimen. 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 (5) Hypertension Current Visit: Yes Status: Acute Assessment and plan: known history of HTN. BP elevated on arrival. BP improved with resuming home BP medication. Qualifiers: Hypertension type: essential hypertension Qualified Code(s): I10 - Essential (primary) hypertension (6) Hyperlipidemia Current Visit: Yes Status: Acute Assessment and plan: per hx. Continue home statin Qualifiers: Hyperlipidemia type: pure hypercholesterolemia Qualified Code(s): E78.00 - Pure hypercholesterolemia, unspecified; E78.0 - Pure hypercholesterolemia (7) Candidal intertrigo Current Visit: Yes Status: Acute Assessment and plan: To bilateral breast skin folds. Improved with nystatin powder. Advised to use pillowcases to keep skin off skin. (8) Hyperkalemia Current Visit: No Status: Acute Assessment and plan: K 5.3; one-time dose of Kayexalate. Monitor repeat CMP. (9) DVT prophylaxis Current Visit: Yes Status: Deleted Assessment and plan: heparin - Time Spent With Patient Total time spent is greater than 50% in coordination of care (as documented) at patient's floor/unit and/or counseling patient: - Subjective Interval history: Seen and examined at bedside. Says she does not feel well today and is more short of breath. She feels tight and wheezy. Does not feel comfortable being discharged home today. No chest pain. Strongly encouraged mobility and aggressive IS. - Constitutional Vitals: Temp Pulse Resp BP Pulse Ox 98.5 F 71 16 123/68 96 10/23/17 11:24 10/23/17 11:24 10/23/17 11:24 10/23/17 11:24 10/23/17 11:24 General appearance: Present: cooperative, A&O X 3, morbidly obese, no acute distress, answers questions appropriately - Head Head exam: Present: atraumatic, normocephalic - Eye Eye exam: Present: PERRL, conjuntiva pink, sclera anicteric Pupils: Present: PERRL - Neck Neck exam general surgery: Present: supple, trachea midline. Absent: lymphadenopathy - Respiratory Respiratory exam: Present: rhonchi. Absent: accessory muscle use, rales, wheezes - Cardiovascular Cardiovascular exam: Present: RRR, +S1, +S2. Absent: diastolic murmur, gallop, rubs, systolic murmur - GI/Abdominal GI/Abdominal exam: Present: normal bowel sounds, soft, no peritoneal signs. Absent: distended, tenderness - Extremities Exam Extremities exam: Present: warm, radial pulses palpable and symmetrical. Absent : calf tenderness, cyanotic, pedal edema - Neurological Exam Neurological exam: Present: CN II-XII intact, oriented X3, no focal deficits. Absent: pronater drift, facial droop, speech deficit - Skin Skin exam: Present: dry, intact Internal Medicine: Result - Labs CBC & Chem 7: 10/21/17 05:40 10/22/17 17:32 Labs: BMP 10/22/17 17:32 Sodium 136 Potassium 5.3 H Chloride 99 Carbon Dioxide 32 H BUN 27 H Creatinine 0.71 Glucose 310 H Calcium 9.1 Liver Function 05/18/18 Range/Units 17:32 Total Bilirubin 0.7 (0.3-1.0) mg/dL AST 39 (13-39) Units/L ALT 18 (7-52) Units/L Alkaline Phosphatase 77 (34-104) Units/L Albumin 3.2 L (3.5-5.7) g/dL - ABG Interpretation ABG results: PT/INR, D-dimer PT 11.5 Seconds (9.4-12.1) 10/18/17 18:37 - Impressions Impressions Chest CTA 10/22/17 13:22 IMPRESSION: 1. Artifact and suboptimal opacification limits evaluation for distal pulmonary emboli. No evidence of central pulmonary emboli or right heart strain. 2. Bilateral dependent atelectasis. A small amount of superimposed airspace consolidation cannot be entirely excluded radiographically. D/ / 10/22/2017 16:12:42 Tonny Silva MD / frannie Interpreting Provider: Tonny Silva MD Consult Discharge Plan - Plan Instructions: Nystatin (On the skin), Chronic Obstructive Pulmonary Disease (DC ) Referrals: Rosa Whitt, CASE MONITOR [Primary Care Provider] - 10/25/17 9:00 am Prescriptions: Nystatin POWDER [Nystop] 1 appl TP TID #1 bottle predniSONE [PredniSONE] 40 mg PO DAILY #2 tablet
[2017-10-23 16:01] LABS: Adenovirus Not Detected (Not Detect); Bordetella Pertussis Not Detected (Not Detect); Chlamydophila pneumoniae Not Detected (Not Detect); Coronavirus 229E Not Detected (Not Detect); Coronavirus HKU1 Not Detected (Not Detect); Coronavirus NL63 Not Detected (Not Detect); Coronavirus OC43 Not Detected (Not Detect); Human Metapneumovirus Not Detected (Not Detect); Human Rhinovirus/Enterovirus Not Detected (Not Detect); Influenza A Subtype 2009 H1 Not Detected (Not Detect); Influenza A Untypeable Not Detected (Not Detect); Influenza B Not Detected (Not Detect); Mycoplasma pneumoniae Not Detected (Not Detect); Parainfluenza Virus 1 Not Detected (Not Detect); Parainfluenza Virus 2 Not Detected (Not Detect); Parainfluenza Virus 3 Not Detected (Not Detect); Parainfluenza Virus 4 Not Detected (Not Detect); Respiratory Syncytial Virus Not Detected (Not Detect)
[2017-10-24] MEDS: Ipratropium/Albuterol Neb 3 ML IH SCH ×2 (03:27→10:32)
[2017-10-24] MEDS: *HR* Heparin 5,000 UNIT/ML VIAL SQ SCH (05:36)
[2017-10-24 07:30] LABS: BUN/Creatinine Ratio 30 (6-26); Blood Urea Nitrogen 21 mg/dL (8-23); Carbon Dioxide 36 mEq/L (23-29); Chloride 101 mEq/L (98-107); Glucose 156 mg/dL (70-105); Osmolality,Calculated 296 (280-300); Potassium 3.4 mEq/L (3.5-5.1); Sodium 140 mEq/L (136-145); eGFR For African Americans > 60 (> 60); eGFR For Non-African Americans > 60 (> 60)
--- NOTE | 2017-10-24 08:41 | Discharge Summary ---
- NOTES TO OUTPATIENT PROVIDER Notes to Outpatient Provider: Recommend cardiology referral for possible outpatient stress test Date of Encounter: 10/24/17 Time of Encounter: 08:38 - Discharge Diagnosis (1) COPD exacerbation Priority: Primary Status: Acute Assessment and Plan: With chronic respiratory failure (wears oxygen at 3 L [id number] at home) . Symptomatic with worsening shortness of breath and wheezing. Chest CTA negative for pulmonary embolism but concerning for bilateral pneumonia. Currently symptoms do not appear to be consistent with pneumonia but rather COPD exacerbation. Sx's improved with IV Levaquin IV Levaquin, steroids and bronchodilators. Completed 5 day course steroid burst. Discharge home on (to complete a total course of 7 days). Continue home inhalers. Adequately oxygenating on home dose of oxygen at time of discharge. (2) Neck pain on left side Priority: Primary Status: Acute Assessment and Plan: radiates to left arm. no neurological deficits. HEART score 4 (age, HLD, t2dm , morbid obesity). Possible anginal equivalent. Serial troponin negative. No ischemia found on EKG. TTE E with EF 60%, mild diastolic dysfunction, no valvular abnormalities, no wall motion abnormalities. Cervical CT with no convincing evidence of an acute abnormality, minimal degenerative changes. Discussed the possibility of stress test with patient and she is refusing due to previous experience. Suspect left neck pain secondary to degenerative changes. Symptoms oxygen weaned to hospitalization but overall improved with conservative management. Recommend follow-up with PCP. (3) Diabetes mellitus Priority: Secondary Status: Chronic Assessment and Plan: per hx. Cont home diabetes medication regimen. 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 (5) Hypertension Priority: Primary Status: Acute Assessment and Plan: known history of HTN. BP elevated on arrival. BP improved with resuming home BP medication. Qualifiers: Hypertension type: essential hypertension Qualified Code(s): I10 - Essential (primary) hypertension (6) Hyperlipidemia Priority: Secondary Status: Acute Assessment and Plan: per hx. Continue home statin Qualifiers: Hyperlipidemia type: pure hypercholesterolemia Qualified Code(s): E78.00 - Pure hypercholesterolemia, unspecified; E78.0 - Pure hypercholesterolemia (7) Candidal intertrigo Priority: Primary Status: Acute Assessment and Plan: To bilateral breast skin folds. Improved with nystatin powder. Advised to use pillowcases to keep skin off skin. (8) Hyperkalemia Priority: Primary Status: Acute Assessment and Plan: K 5.3; one-time dose of Kayexalate. K 3.4 at discharge. Recommend follow-up with PCP within one week for repeat CMP. Hospital course: Please see assessment and plan for Hospital course Discharge discussed with: patient (Seen and examined at bedside. Still with some shortness of breath that is worse with exertion but overall improved. Says she feels better would like to discharge home today. No chest pain. Having intermittent left-sided neck pain but overall improved.) - Time Spent with Patient Total time spent providing and/or coordinating discharge services: - Discharge Medications Prescriptions: levoFLOXacin [Levaquin] 750 mg PO DAILY #5 tablet Home Medications: Albuterol Sulfate [Ventolin Hfa] 2 puff IH Q4H PRN 08/28/16 [History] Ferrous Sulfate [Iron] 325 mg PO DAILY 08/28/16 [History] Folic Acid 1 mg PO DAILY 08/28/16 [History] Lisinopril [Zestril] 20 mg PO DAILY 08/28/16 [History] Umeclidinium [place] [Incruse Ellipta] 1 puff IH DAILY 08/28/16 [History] Metformin HCl [Metformin HCl ER] 500 mg PO BID #60 tab 09/02/16 [Rx] glipiZIDE [Glucotrol] 5 mg PO BIDWM #60 tablet 09/02/16 [Rx] Albuterol Neb [Proventil Neb] 2.5 mg IH TID PRN 10/18/17 [History] Aspirin [Lo-Dose Aspirin EC] 81 mg PO DAILY 10/18/17 [History] Atorvastatin Calcium [Lipitor] 80 mg PO HS 10/18/17 [History] Fluticasone/Salmeterol [Advair Hfa 230-21 Mcg Inhaler] 2 puff IH DAILY 10/18/17 [History] Nystatin POWDER [Nystop] 1 appl TP TID #1 bottle 10/22/17 [Rx] predniSONE [PredniSONE] 40 mg PO DAILY #2 tablet 10/22/17 [Rx] levoFLOXacin [Levaquin] 750 mg PO DAILY #5 tablet 10/24/17 [Rx] Allergies/Adverse Reactions: 3 Allergy/AdvReac Type Severity Reaction Status Date / Time Hydromorphone [From Dilaudid] AdvReac HYPERTENSION,DIZZINESS,HOT Verified 10/18 20:11 FLASHES Date of admission: 10/23/17 14:37 Primary care physician: Rosa Whitt CNP Discharging clinician: Michell Jones Anticipated date of discharge: 10/24/17 - Constitutional Vitals: Temp Pulse Resp BP Pulse Ox 98.1 F 73 17 136/64 99 10/24/17 07:26 10/24/17 07:26 10/24/17 07:26 10/24/17 07:26 10/24/17 07:26 General appearance: Present: cooperative, A&O X 3, morbidly obese, no acute distress, answers questions appropriately - Head Head exam: Present: atraumatic, normocephalic - Eye Eye exam: Present: PERRL, conjuntiva pink, sclera anicteric Pupils: Present: PERRL - Neck Neck exam general surgery: Present: supple, trachea midline. Absent: lymphadenopathy - Respiratory Respiratory exam: Present: CTAB. Absent: accessory muscle use, rales, rhonchi, wheezes - Cardiovascular Cardiovascular exam: Present: RRR, +S1, +S2. Absent: diastolic murmur, gallop, rubs, systolic murmur - GI/Abdominal GI/Abdominal exam: Present: normal bowel sounds, soft, no peritoneal signs. Absent: distended, tenderness - Extremities Exam Extremities exam: Present: warm, radial pulses palpable and symmetrical. Absent : calf tenderness, cyanotic, pedal edema - Neurological Exam Neurological exam: Present: CN II-XII intact, oriented X3, no focal deficits. Absent: pronater drift, facial droop, speech deficit - Skin Skin exam: Present: dry, intact - Patient Status Disposition: Home Health Service Condition: Good Functional capacity at discharge: uses cane/walker Overall status at discharge: patient is back to baseline - Discharge Instructions Instructions: Nystatin (On the skin), Chronic Obstructive Pulmonary Disease (DC ), Levofloxacin (By mouth) Follow Up With: Rosa Whitt, SENIOR INTERACTION DESIGNER [Primary Care Provider] - 10/25/17 9:00 am - Diet and Activity Activity: increase activity as tolerated Diet: low fat, low cholesterol
[2017-10-24] MEDS: Levofloxacin 750 MG/150 ML 750 MG/150 ML BAG IVPB SCH (09:04)
[2017-10-24] MEDS: Nystatin POWDER 30 GM BOTTLE TP SCH (09:06)
[2017-10-24] MEDS: Aspirin Enteric Coated 81 MG Tablet PO SCH (09:07)
[2017-10-24] MEDS: Lisinopril 20 MG TABLET PO SCH (09:07)
[2017-10-24] MEDS: predniSONE 20 MG TABLET PO SCH (09:07)
[2017-10-24] MEDS: Insulin LISPRO 300 UNITS/3 ML VIAL SQ SCH ×2 (09:07→11:54)
[2017-10-24] MEDS: Folic Acid 1 MG TABLET PO SCH (09:08)
[2017-10-24] MEDS: Budesonide/Formoterol 160/4.5 MDI IH SCH (10:32)
[2017-10-24 11:07] VITALS: BP 120/59
== END 2017-10-24 14:03 | disposition home health service (06) | DRG 190 ==
LOC: 3BNU 17:51 → EMEROO 17:51 → 3BNU 22:24
PROVIDERS: ADMIT Internal Medicine; ATTEND Internal Medicine

== ENCOUNTER 2017-11-02 16:00 | Inpatient (IN) ==
--- NOTE | 2017-11-02 16:21 | Emergency Department Note ---
Disposition Clinical Impression: Acute exacerbation of chronic obstructive airways disease Community acquired pneumonia Qualifiers: Laterality: unspecified laterality Qualified Code(s): J18.9 - Pneumonia, unspecified organism Disposition: Admitted As Inpatient Condition: Fair SOB HPI - General Chief Complaint: ED Shortness of Breath/Dyspnea Stated Complaint: CHAITANYA Time Seen by Provider: 11/02/17 16:19 Source: patient, EMS Limitations: no limitations Nursing Notes Reviewed: Yes Vital Signs Reviewed: Yes - History of Present Illness This is a 67 year-old female with history of HTN, type 2 diabetes, HLD, CAD, and COPD on 2L home O2 who presents with dyspnea gradually worsening for more than 2 weeks, associated with chest congestion, minimally productive cough, and slight temperature elevation (Tmax 99.9). She reports chest pain, mainly when she coughs. She was seen about 2 weeks ago for these symptoms and diagnosed with pneumonia, treated with Levaquin. Her breathing has not improved despite 2 rounds of antibiotics. She is normally on 2 L home O2 but recently increased her flow rate to 4 L, as her SpO2 had decreased to about 90%. Pt Subjective Complaint: shortness of breath Onset (ago): week(s) (2) Severity: moderate Consistency/Duration: gradually worsening Improves with: oxygen, bronchodilators Worsens with: lying flat, movement, coughing Known history of: COPD Associated symptoms: Reports: chest pain (mostly with coughing), fever (Tmax 99.9), cough, wheezing, orthopnea. Denies: lower extremity pain, hemoptysis Treatment prior to arrival: oxygen, bronchodilator Cough present: Yes Cough Frequency: Intermittent Sputum production: No - Related Data Home Medications Medication Instructions Recorded Confirmed Albuterol Sulfate [Ventolin Hfa] 2 puff IH Q4H PRN 08/28/16 11/02/17 Ferrous Sulfate [Iron] 325 mg PO DAILY 08/28/16 11/02/17 Folic Acid 1 mg PO DAILY 08/28/16 11/02/17 Lisinopril [Zestril] 20 mg PO DAILY 08/28/16 11/02/17 Umeclidinium [place] [Incruse 1 puff IH DAILY 08/28/16 11/02/17 Ellipta] Albuterol Neb [Proventil Neb] 2.5 mg IH TID PRN 10/18/17 11/02/17 Aspirin [Lo-Dose Aspirin EC] 81 mg PO DAILY 10/18/17 11/02/17 Atorvastatin Calcium [Lipitor] 80 mg PO HS 10/18/17 11/02/17 Fluticasone/Salmeterol [Advair Hfa 2 puff IH DAILY 10/18/17 11/02/17 230-21 Mcg Inhaler] predniSONE [Prednisone] 50 mg PO DAILY 11/02/17 11/02/17 Previous Rx's Medication Instructions Recorded Metformin HCl [Metformin HCl ER] 500 mg PO BID #60 tab 09/02/16 glipiZIDE [Glucotrol] 5 mg PO BIDWM #60 tablet 09/02/16 levoFLOXacin [Levaquin] 750 mg PO DAILY #5 tablet 10/24/17 Allergies Allergy/AdvReac Type Severity Reaction Status Date / Time Hydromorphone [From Dilaudid] AdvReac HYPERTENSION,DIZZINESS,HOT Verified 10/18 20:11 FLASHES All systems ED: reviewed and negative except as stated. Constitutional: Reports: as per HPI Respiratory: Reports: cough, dyspnea, wheezes. Denies: hemoptysis, sputum production Gastrointestinal: Denies: abdominal pain, nausea, vomiting Past Medical History - Past Medical History Medical history: Reports: COPD, diabetes, hypertension, myocardial infarction Surgical history: Reports: cholecystectomy Psychiatric history: Reports: no psych history - Social History Smoking Status: Former smoker Smokeless Tobacco Status: No Alcohol use: Reports: rarely Drug use: Reports: none Physical Exam - General Limitations: no limitations General appearance: alert, in no apparent distress - Head Head exam: atraumatic, normocephalic - Eye Eye exam: Present: normal appearance - ENT ENT exam: normal exam - Neck Neck exam: Present: normal inspection - Respiratory Respiratory exam: Present: respiratory distress (mild), wheezes, other ( bilateral wheezes and rhonchi) - Cardiovascular Cardiovascular exam: Present: regular rate, normal rhythm, normal heart sounds - Abdominal Exam Abdominal exam: Present: soft, Non-Tender. Absent: distention - Extremities Exam Extremities exam: Present: pedal edema (patient says near baseline) - Neurological Exam Neurological exam: Present: alert, oriented X3. Absent: motor sensory deficit - Psychiatric Psychiatric exam: Present: normal affect, normal mood - Skin Skin exam: Present: warm, dry, intact Course - Reevaluation(s) Reevaluation #1: Updated patient/family and test results and plan. They are in agreement with admission. Time: :21 - Consultations Consultation #1: Paged hospitalist Time: 19: Consultation #2: Reviewed case with Dr. Orosco, and patient accepted or admission. Time: 21:33 Vital Signs Temperature 98.5 F 11/02/17 16:02 Pulse Rate 95 11/02/17 16:02 Respiratory Rate 26 11/02/17 16:02 Blood Pressure 138/63 11/02/17 16:02 O2 Sat by Pulse Oximetry 93 11/02/17 16:02 Temperature 98.7 F 11/04/17 20:22 Pulse Rate 96 11/04/17 20:22 Respiratory Rate 15 11/04/17 20:22 Blood Pressure 134/71 11/04/17 20:22 O2 Sat by Pulse Oximetry 95 11/04/17 20:22 Oxygen Delivery Oxygen Delivery Nasal Cannula Shortness of Breath/Dyspnea - Lab Data Result diagrams: 11/03/17 06:19 11/03/17 06:19 Lab Results 11/02/17 11/02/17 11/02/17 Range/Units 17:14 17:14 17:14 WBC 5.5 (4.3-11.1) K/mcL RBC 3.83 (3.82-4.97) M/mcL Hgb 10.6 L (11.5-15.4) g/dL Hct 35.4 (35.3-44.9) % MCV 92.4 (83.0-100.0) fL MCH 27.7 L (28.0-33.3) pg MCHC 29.9 L (31.6-35.5) g/dL RDW 13.6 (11.5-14.5) % Plt Count 163 (140-400) K/mcL MPV 10.9 (9.4-12.4) fL Immature Gran % 0.5 (0-4) % Seg Neutrophils % 65.7 % Lymphocytes % 18.6 % Monocytes % 9.5 % Eosinophils % 5.5 % Basophils % 0.2 % Neutrophils # 3.6 (1.6-8.9) K/mcL Lymphocytes # 1.0 (0.6-4.6) K/mcL Monocytes # 0.5 (0.0-1.3) K/mcL Eosinophils # 0.3 (0.0-0.6) K/mcL Basophils # 0.0 (0.0-0.2) K/mcL PT 12.0 (9.4-12.1) Seconds INR 1.1 ABG pH (7.32-7.45) pH Units ABG pCO2 (35-45) mmHg ABG pO2 (85-104) mmHg ABG HCO3 (21-27) mEq/L ABG Total CO2 (20-26) mEq/L ABG O2 Saturation (95-98) % ABG Base Excess (-2 to 3) mEq/L O2 Delivery Device Inspired O2 (1-15=lpm [id number]=%) Sodium 140 (136-145) mEq/L Potassium 4.4 (3.5-5.1) mEq/L Chloride 94 L (98-107) mEq/L Carbon Dioxide 44 H* (23-29) mEq/L BUN 9 (8-23) mg/dL Creatinine 0.77 (0.60-1.20) mg/dL Est GFR ( Amer) > 60 (> 60) Est GFR (Non-Af Amer) > 60 (> 60) BUN/Creatinine Ratio 12 (6-26) Glucose 174 H (70-105) mg/dL Calculated Osmolality 293 (280-300) Lactic Acid (0.5-2.2) mmol/L Calcium 9.3 (8.6-10.3) mg/dL Troponin I < 0.03 (< 0.04) ng/mL B-Natriuretic Peptide (Less than 100) pg/mL 11/02/17 11/02/17 11/02/17 Range/Units 17:14 17:14 17:30 WBC (4.3-11.1) K/mcL RBC (3.82-4.97) M/mcL Hgb (11.5-15.4) g/dL Hct (35.3-44.9) % MCV (83.0-100.0) fL MCH (28.0-33.3) pg MCHC (31.6-35.5) g/dL RDW (11.5-14.5) % Plt Count (140-400) K/mcL MPV (9.4-12.4) fL Immature Gran % (0-4) % Seg Neutrophils % % Lymphocytes % % Monocytes % % Eosinophils % % Basophils % % Neutrophils # (1.6-8.9) K/mcL Lymphocytes # (0.6-4.6) K/mcL Monocytes # (0.0-1.3) K/mcL Eosinophils # (0.0-0.6) K/mcL Basophils # (0.0-0.2) K/mcL PT (9.4-12.1) Seconds INR ABG pH 7.39 (7.32-7.45) pH Units ABG pCO2 77 H* (35-45) mmHg ABG pO2 66 L (85-104) mmHg ABG HCO3 46 H (21-27) mEq/L ABG Total CO2 49 H (20-26) mEq/L ABG O2 Saturation 91 L (95-98) % ABG Base Excess 18 H (-2 to 3) mEq/L O2 Delivery Device Cannula Inspired O2 32.0 (1-15=lpm [id number]=%) Sodium (136-145) mEq/L Potassium (3.5-5.1) mEq/L Chloride (98-107) mEq/L Carbon Dioxide (23-29) mEq/L BUN (8-23) mg/dL Creatinine (0.60-1.20) mg/dL Est GFR ( Amer) (> 60) Est GFR (Non-Af Amer) (> 60) BUN/Creatinine Ratio (6-26) Glucose (70-105) mg/dL Calculated Osmolality (280-300) Lactic Acid 1.6 (0.5-2.2) mmol/L Calcium (8.6-10.3) mg/dL Troponin I (< 0.04) ng/mL B-Natriuretic Peptide 77 (Less than 100) pg/mL - Radiology Data Radiology results reviewed: Yes I reviewed the patient's radiology results. XR/XR chest 1V portable IMPRESSION: New mild bibasilar airspace disease with, atelectasis versus pneumonia. - EKG Data EKG attestation: Yes I reviewed and interpreted this EKG. EKG shows normal: Reports: sinus rhythm, QRS complexes Rate: Reports: normal [place]/QRS: Reports: left axis deviation When compared to previous EKG there are: no significant changes
[2017-11-02] MEDS ORDERED: Ipratropium/Albuterol Neb 3 ML IH ONE (16:51)
[2017-11-02 17:31] LABS: Basophils % 0.2 %; Eosinophils # 0.3 K/mcL (0.0-0.6); Eosinophils % 5.5 %; Hematocrit 35.4 % (35.3-44.9); Hemoglobin 10.6 g/dL (11.5-15.4); Immature Granulocytes % 0.5 % (0-4); Lymphocytes % 18.6 %; Mean Corpuscular HGB Conc 29.9 g/dL (31.6-35.5); Mean Corpuscular Hemoglobin 27.7 pg (28.0-33.3); Mean Corpuscular Volume 92.4 fL (83.0-100.0); Mean Platelet Volume 10.9 fL (9.4-12.4); Monocytes # 0.5 K/mcL (0.0-1.3); Monocytes % 9.5 %; Neutrophils # 3.6 K/mcL (1.6-8.9); Platelet Count 163 K/mcL (140-400); Red Blood Count 3.83 M/mcL (3.82-4.97); Red Cell Distribution Width 13.6 % (11.5-14.5); Segmented Neutrophils % 65.7 %
[2017-11-02 17:36] LABS: INR 1.1
[2017-11-02 17:37] LABS: ABG Base Excess 18 mEq/L (-2 to 3); ABG HCO3 46 mEq/L (21-27); ABG Oxygen Saturation 91 % (95-98); ABG PCO2 77 mmHg (35-45); ABG PH 7.39 pH Units (7.32-7.45); ABG PO2 66 mmHg (85-104); ABG TCO2 49 mEq/L (20-26)
[2017-11-02 17:43] LABS: Troponin I < 0.03 ng/mL (< 0.04)
[2017-11-02] MEDS ORDERED: Azithromycin 500 MG in D5% in Water 250 ML IVPB ONE (17:55)
[2017-11-02] MEDS ORDERED: cefTRIAXone 2,000 MG in 0.9 % Sodium Chloride Mini Bag 100 ML IVPB ONE (17:55)
[2017-11-02 18:09] LABS: BUN/Creatinine Ratio 12 (6-26); Blood Urea Nitrogen 9 mg/dL (8-23); Calcium 9.3 mg/dL (8.6-10.3); Carbon Dioxide 44 mEq/L (23-29); Chloride 94 mEq/L (98-107); Glucose 174 mg/dL (70-105); Osmolality,Calculated 293 (280-300); Potassium 4.4 mEq/L (3.5-5.1); Sodium 140 mEq/L (136-145); eGFR For African Americans > 60 (> 60); eGFR For Non-African Americans > 60 (> 60)
[2017-11-02] MEDS ORDERED: Dextrose Gel 15 GM/37.5 ML TUBE PO PRN ×2 (22:47)
[2017-11-02] MEDS ORDERED: Ipratropium/Albuterol Neb 3 ML IH PRN (22:47)
[2017-11-02] MEDS ORDERED: *HR* Dextrose 50 % in Water (Syg) 50 ML SYRINGE IVP PRN (22:47)
[2017-11-02] MEDS ORDERED: D5% in Water 1,000 ML IVC PRN (22:47)
--- NOTE | 2017-11-02 22:55 | Internal Med History&Physical ---
Date of Encounter: 11/02/17 Time of Encounter: 22:56 Internal Medicine - H&P: HPI Chief complaint: SOB History of present illness: Ms. Panchal is a 67 year old female with chronic resp failure on 3 L oxygen , COPD who presents with acute on chronic COPD exacerbation failing outpatient therapy. Patient was recently admitted approximately 10 days ago for similar respiratory exacerbation and was discharged on prednisone and Levaquin. Since discharge she did not feel better and returned to her PCP who continued a longer course of prednisone and Levaquin this past Wednesday. Despite prolonged therapy she continued to experience shortness of breath that was worse today where she needed to bump oxygen up from 3 L to 4 L. She had a low-grade temperature of 99.4 Fahrenheit. Her shortness of breath was worse on exertion particularly when ambulating to her bathroom. Associated with dizziness secondary to shortness of breath. She is productive of clear yellow sputum EKG personally reviewed with rate 79, normal sinus rhythm, nonspecific ST-T changes XR/XR chest 1V portable IMPRESSION: New mild bibasilar airspace disease with, atelectasis versus pneumonia. Past Med Surg Social Fam HX - Past Medical History Medical history: COPD, diabetes, hypertension, myocardial infarction Psychiatric history: no psych history - Past Surgical History Surgical History: cholecystectomy - Social History Smoking Status: Former smoker Smokeless Tobacco Status: No Alcohol use: rarely Drug use: none - Family History Father Maternal Living Status: Hx Family Cancer: Yes (lung cancer) Internal Medicine - H&P: Meds Albuterol Sulfate [Ventolin Hfa] 2 puff IH Q4H PRN 08/28/16 [History] Ferrous Sulfate [Iron] 325 mg PO DAILY 08/28/16 [History] Folic Acid 1 mg PO DAILY 08/28/16 [History] Lisinopril [Zestril] 20 mg PO DAILY 08/28/16 [History] Umeclidinium [place] [Incruse Ellipta] 1 puff IH DAILY 08/28/16 [History] Metformin HCl [Metformin HCl ER] 500 mg PO BID #60 tab 09/02/16 [Rx] glipiZIDE [Glucotrol] 5 mg PO BIDWM #60 tablet 09/02/16 [Rx] Albuterol Neb [Proventil Neb] 2.5 mg IH TID PRN 10/18/17 [History] Aspirin [Lo-Dose Aspirin EC] 81 mg PO DAILY 10/18/17 [History] Atorvastatin Calcium [Lipitor] 80 mg PO HS 10/18/17 [History] Fluticasone/Salmeterol [Advair Hfa 230-21 Mcg Inhaler] 2 puff IH DAILY 10/18/17 [History] levoFLOXacin [Levaquin] 750 mg PO DAILY #5 tablet 10/24/17 [Rx] predniSONE [Prednisone] 50 mg PO DAILY 11/02/17 [History] 3 Allergy/AdvReac Type Severity Reaction Status Date / Time Hydromorphone [From Dilaudid] AdvReac HYPERTENSION,DIZZINESS,HOT Verified 10/18 20:11 FLASHES All Systems PM: A 10-system review of systems was performed and is negative for pertinent findings except as documented above in the HPI. Review of systems: ROS 14 point review of systems reviewed as best as possible given presentation. Pertinent positive or negative as per HPI or otherwise reviewed as negative - Constitutional Vitals: Temp Pulse Resp BP Pulse Ox 98.5 F 87 18 128/64 96 11/02/17 16:02 11/02/17 21:45 11/02/17 22:31 11/02/17 22:31 11/02/17 21:45 Exam: General - AAO x 3 Psych - Appropriate affect/speech. No agitation Eyes - GITA. Eye lids intact. No scleral icterus Neuro - No gross peripheral or central neuro deficits on inspection Heart - Sinus. RRR. S1 and S2 present. No added HS/murmurs appreciated. No elevated JVD appreciated. Lung - Adequate air entry b/l, diffuse wheezes appreciated GI - Soft, non-tender. No hepatosplenomegaly/ascites. BS+ - No CVA/suprapubic tenderness or palpable bladder distension Skin - Intact. No rash/petechiae/ecchymosis. +1 bilateral lower extremity edema Internal Med - H&P Results - Labs CBC & Chem 7: 11/02/17 17:14 11/02/17 17:14 - Assessment and plan (1) Acute exacerbation of chronic obstructive airways disease Current Visit: Yes Status: Acute Assessment and plan: IV steroids, IV azithro, duonebs for now check CT chest w/o contrast given indeterminate CXR and repeated failure of therapy (2) Acute and chronic respiratory failure with hypoxia Current Visit: No Status: Acute Assessment and plan: treat as above (3) Hypertension Current Visit: No Status: Acute Assessment and plan: continue med Qualifiers: Hypertension type: essential hypertension Qualified Code(s): I10 - Essential (primary) hypertension (4) Diabetes mellitus Current Visit: No Status: Chronic Assessment and plan: add ISS while on steroids continue oral meds Qualifiers: Diabetes mellitus type: type 2 Diabetes mellitus complication status: without complication Qualified Code(s): E11.9 - Type 2 diabetes mellitus without complications - Time Spent With Patient Total time spent is greater than 50% in coordination of care (as documented) at patient's floor/unit and/or counseling patient:
[2017-11-02] MEDS ORDERED: Naloxone 0.4 MG/ML INJ IVP PRN (23:02)
[2017-11-03] MEDS: MethylPREDNISolone 40 MG/ML VIAL IVP SCH ×3 (00:03→12:25)
[2017-11-03] MEDS: Ipratropium/Albuterol Neb 3 ML IH SCH ×4 (03:54→22:29)
[2017-11-03] MEDS: *HR* Enoxaparin 40 MG/0.4 ML SYRINGE SQ SCH (05:22)
[2017-11-03 07:17] LABS: Basophils % 0.2 %; Eosinophils % 0.7 %; Hematocrit 35.2 % (35.3-44.9); Hemoglobin 10.6 g/dL (11.5-15.4); Immature Granulocytes % 0.3 % (0-4); Lymphocytes # 0.5 K/mcL (0.6-4.6); Lymphocytes % 8.8 %; Mean Corpuscular HGB Conc 30.1 g/dL (31.6-35.5); Mean Corpuscular Hemoglobin 27.5 pg (28.0-33.3); Mean Corpuscular Volume 91.4 fL (83.0-100.0); Mean Platelet Volume 11.3 fL (9.4-12.4); Monocytes # 0.1 K/mcL (0.0-1.3); Neutrophils # 5.3 K/mcL (1.6-8.9); Platelet Count 168 K/mcL (140-400); Red Blood Count 3.85 M/mcL (3.82-4.97); Red Cell Distribution Width 13.6 % (11.5-14.5)
[2017-11-03 07:41] LABS: BUN/Creatinine Ratio 13 (6-26); Blood Urea Nitrogen 10 mg/dL (8-23); Calcium 9.2 mg/dL (8.6-10.3); Carbon Dioxide 40 mEq/L (23-29); Chloride 92 mEq/L (98-107); Glucose 310 mg/dL (70-105); Osmolality,Calculated 293 (280-300); Potassium 4.6 mEq/L (3.5-5.1); Sodium 136 mEq/L (136-145); eGFR For African Americans > 60 (> 60); eGFR For Non-African Americans > 60 (> 60)
[2017-11-03] MEDS ORDERED: *HR* GlipiZIDE 5 MG TABLET PO SCH (08:00)
[2017-11-03] MEDS ORDERED: *HR* Metformin 500 MG TABLET PO SCH (09:00)
[2017-11-03] MEDS ORDERED: (Umeclidinium Bromide [Incruse Ellipta] 1 PUFF) IH SCH (09:00)
[2017-11-03] MEDS: Insulin LISPRO 300 UNITS/3 ML VIAL SQ SCH ×4 (09:03→21:16)
[2017-11-03] MEDS: Aspirin Enteric Coated 81 MG Tablet PO SCH (09:04)
[2017-11-03] MEDS: Folic Acid 1 MG TABLET PO SCH (09:04)
[2017-11-03] MEDS: Lisinopril 20 MG TABLET PO SCH (09:04)
[2017-11-03] MEDS: Budesonide/Formoterol 160/4.5 MDI IH SCH (11:04)
--- NOTE | 2017-11-03 12:36 | Internal Med Progress Note ---
Date of Encounter: 11/03/17 Time of Encounter: 11:00 - Assessment and plan (1) Acute exacerbation of chronic obstructive airways disease Current Visit: Yes Status: Acute Assessment and plan: IV steroids, IV azithro, duonebs for now check CT chest w/o contrast given indeterminate CXR and repeated failure of therapy 11/03: CT chest without contrast shows new by basilar airspace disease, concerning for atelectasis versus pneumonia. No patient's white blood cell count is normal. He is now afebrile. She is day #2 IV azithromycin. She was given 1 dose of Rocephin yesterday. I am not entirely convinced she has an acute bacterial pneumonia, rather this may be residual versus atelectasis related to her previous course of pneumonia. Due to the recurrence of this or persistence of it this does raise concern for possible aspiration pneumonia as well. I will request a swallow evaluation. Given her clinical improvement, I will not escalate antibiotics presently. She has no documented history of MRSA. We will continue to closely monitor. Pro-calcitonin ordered. If in fact this would be a pneumonia, this should be classified as healthcare associated pneumonia. (2) Diabetes mellitus Current Visit: No Status: Chronic Assessment and plan: add ISS while on steroids continue oral meds 11/03: Continue to monitor. Adjust insulin as necessary. Qualifiers: Diabetes mellitus type: type 2 Diabetes mellitus complication status: without complication Qualified Code(s): E11.9 - Type 2 diabetes mellitus without complications (3) Acute and chronic respiratory failure with hypoxia Current Visit: No Status: Acute Assessment and plan: treat as above 11/03: Patient had an echo done this month showed essentially a normal study. Her BNP is normal. Abdomen not convinced she has congestive heart failure but if she does not respond to therapy will consider a dose of IV Lasix. She denies a history of sleep apnea although she does fit the habitus. States she has had a study for. This may need to be repeated. Patient has had 2 courses of antibiotics with Levaquin. Still having symptoms. If this persist without explanation, may need pulmonary consultation for consideration of bronchoscopy. Patient also has chronic hypercarbic respiratory failure, suspect due to obesity hypoventilation syndrome, and COPD. Given no significant response to current treatment, I will trial Lasix 40 mg IV twice a day and monitor renal function closely. Despite her normal BNP, I cannot rule out a CHF picture. (4) Hypertension Current Visit: No Status: Acute Assessment and plan: continue med Qualifiers: Hypertension type: essential hypertension Qualified Code(s): I10 - Essential (primary) hypertension - Time Spent With Patient Total time spent is greater than 50% in coordination of care (as documented) at patient's floor/unit and/or counseling patient: 25 - 35 minutes - Subjective Interval history: Ms. Panchal is a 67 year old female with chronic resp failure on 3 L oxygen , COPD who presents with acute on chronic COPD exacerbation failing outpatient therapy. Patient was recently admitted approximately 10 days ago for similar respiratory exacerbation and was discharged on prednisone and Levaquin. Since discharge she did not feel better and returned to her PCP who continued a longer course of prednisone and Levaquin this past Wednesday. Despite prolonged therapy she continued to experience shortness of breath that was worse today where she needed to bump oxygen up from 3 L to 4 L. She had a low-grade temperature of 99.4 Fahrenheit. Her shortness of breath was worse on exertion particularly when ambulating to her bathroom. Associated with dizziness secondary to shortness of breath. She is productive of clear yellow sputum 11/03: Patient states her breathing is slightly improved today. He is still short of breath, and has some wheezing. She has a clear/yellow productive cough without blood. No chest pain. No nausea, vomiting, diarrhea. No fevers or chills. - Constitutional Vitals: Temp Pulse Resp BP Pulse Ox 98.5 F 90 20 131/74 93 11/03/17 12:11/03/17 12:11/03/17 12:07 11/03/17 12:07 11/03/17 12:07 General appearance: Present: morbidly obese, no acute distress - Head Head exam: Present: atraumatic, normocephalic - Eye Eye exam: Present: PERRL, conjuntiva pink, sclera anicteric Pupils: Present: PERRL - Neck Neck exam general surgery: Present: supple, trachea midline. Absent: lymphadenopathy - Respiratory Respiratory exam: Present: rales, wheezes. Absent: accessory muscle use, rhonchi - Cardiovascular Cardiovascular exam: Present: RRR, +S1, +S2. Absent: diastolic murmur, gallop, rubs, systolic murmur - GI/Abdominal GI/Abdominal exam: Present: normal bowel sounds, soft, no peritoneal signs. Absent: distended, tenderness - Extremities Exam Extremities exam: Present: pedal edema, warm, radial pulses palpable and symmetrical. Absent: calf tenderness, cyanotic - Neurological Exam Neurological exam: Present: CN II-XII intact, oriented X3, no focal deficits. Absent: pronater drift, facial droop, speech deficit - Skin Skin exam: Present: dry, intact Internal Medicine: Result - Labs CBC & Chem 7: 11/03/17 06:19 11/03/17 06:19 Labs: Short CBC 11/03/17 Range/Units 06:19 WBC 5.9 (4.3-11.1) K/mcL Hgb 10.6 L (11.5-15.4) g/dL Hct 35.2 L (35.3-44.9) % Plt Count 168 (140-400) K/mcL Neutrophils # 5.3 (1.6-8.9) K/mcL BMP 11/03/17 06:19 Sodium 136 Potassium 4.6 Chloride 92 L Carbon Dioxide 40 H* BUN 10 Creatinine 0.79 Glucose 310 H Calcium 9.2 - ABG Interpretation ABG results: ABG ABG pH 7.39 pH Units (7.32-7.45) 11/02/17 17:30 ABG pCO2 77 mmHg (35-45) H* 11/02/17 17:30 ABG pO2 66 mmHg (85-104) L 11/02/17 17:30 ABG O2 Saturation 91 % (95-98) L 11/02/17 17:30 PT/INR, D-dimer PT 12.0 Seconds (9.4-12.1) 11/02/17 17:14 Consult Discharge Plan - Plan Referrals: Rosa Whitt, [employer] PAINTER [Primary Care Provider] -
[2017-11-03] MEDS ORDERED: Furosemide 40 MG/4 ML VIAL IVP SCH (12:45)
[2017-11-03] MEDS: Furosemide 40 MG/4 ML VIAL IVP SCH ×2 (14:02→17:09)
--- NOTE | 2017-11-03 14:47 | Electrocardiograph Report ---
[address] [address] Test Date: 2017-11-02 Pat Name: Lacey Panchal Department: 102 Room: 3A16 Gender: F Transfer Professor: : 1950 Requested By: Pedro Luis Garcia Order Number: [id number] Reading MD: Jennifer Hedrick Measurements Intervals [place] Rate: 79 P: 6 DC: 147 QRS: -7 QRSD: 82 T: 68 QT: 340 QTc: 374 Interpretive Statements SINUS RHYTHM NONSPECIFIC ST-WAVE ABNORMALITY Electronically Signed On 11-03-2017 14:45:04 EDT by Jennifer Hedrick
[2017-11-03] MEDS: Azithromycin 500 MG in D5% in Water 250 ML IVPB SCH (17:09)
[2017-11-03] MEDS: Insulin DETEMIR 100 UNIT/ML X5UNITS SQ SCH (21:15)
[2017-11-04] MEDS: Ipratropium/Albuterol Neb 3 ML IH SCH ×4 (04:35→22:00)
[2017-11-04] MEDS: *HR* Enoxaparin 40 MG/0.4 ML SYRINGE SQ SCH (05:06)
[2017-11-04] MEDS: Insulin LISPRO 300 UNITS/3 ML VIAL SQ SCH ×4 (09:17→20:42)
[2017-11-04] MEDS: Lisinopril 20 MG TABLET PO SCH (09:18)
[2017-11-04] MEDS: Furosemide 40 MG/4 ML VIAL IVP SCH ×2 (09:18→17:58)
[2017-11-04] MEDS: predniSONE 20 MG TABLET PO SCH (09:18)
[2017-11-04] MEDS: Aspirin Enteric Coated 81 MG Tablet PO SCH (09:18)
[2017-11-04] MEDS: Folic Acid 1 MG TABLET PO SCH (09:19)
[2017-11-04] MEDS: Budesonide/Formoterol 160/4.5 MDI IH SCH (10:12)
--- NOTE | 2017-11-04 14:24 | Internal Med Progress Note ---
Date of Encounter: 11/04/17 Time of Encounter: 11:00 - Assessment and plan (1) Acute exacerbation of chronic obstructive airways disease Current Visit: Yes Status: Acute Assessment and plan: IV steroids, IV azithro, duonebs for now check CT chest w/o contrast given indeterminate CXR and repeated failure of therapy 11/03: CT chest without contrast shows new by basilar airspace disease, concerning for atelectasis versus pneumonia. No patient's white blood cell count is normal. He is now afebrile. She is day #2 IV azithromycin. She was given 1 dose of Rocephin yesterday. I am not entirely convinced she has an acute bacterial pneumonia, rather this may be residual versus atelectasis related to her previous course of pneumonia. Due to the recurrence of this or persistence of it this does raise concern for possible aspiration pneumonia as well. I will request a swallow evaluation. Given her clinical improvement, I will not escalate antibiotics presently. She has no documented history of MRSA. We will continue to closely monitor. Pro-calcitonin ordered. If in fact this would be a pneumonia, this should be classified as healthcare associated pneumonia. 11/04: Patient is day #3 IV Rocephin. Patient at least has a bronchitis. He recently completed 10 days of Levaquin for pneumonia, when she was discharged on October 24. He also was sent home on a 5 day steroid burst. I am not convinced patient has pneumonia. Her white count is normal. She is afebrile. By basilar disease may be residual from previous pneumonia and/or atelectasis or both. Pro-calcitonin is ordered but still pending. (2) Diabetes mellitus Current Visit: No Status: Chronic Assessment and plan: add ISS while on steroids continue oral meds 11/04: Continue to monitor. Adjust insulin as necessary. Prednisone was changed to oral, blood sugars trending down Qualifiers: Diabetes mellitus type: type 2 Diabetes mellitus complication status: without complication Qualified Code(s): E11.9 - Type 2 diabetes mellitus without complications (3) Acute and chronic respiratory failure with hypoxia Current Visit: No Status: Acute Assessment and plan: treat as above 11/03: Patient had an echo done this month showed essentially a normal study. Her BNP is normal. Abdomen not convinced she has congestive heart failure but if she does not respond to therapy will consider a dose of IV Lasix. She denies a history of sleep apnea although she does fit the habitus. States she has had a study for. This may need to be repeated. Patient has had 2 courses of antibiotics with Levaquin. Still having symptoms. If this persist without explanation, may need pulmonary consultation for consideration of bronchoscopy. Patient also has chronic hypercarbic respiratory failure, suspect due to obesity hypoventilation syndrome, and COPD. Given no significant response to current treatment, I will trial Lasix 40 mg IV twice a day and monitor renal function closely. Despite her normal BNP, I cannot rule out a CHF picture 11/04:. Patient likely has acute on chronic diastolic CHF. Echo done 10/21/2017 showed LVEF of 60-65% with mild diastolic dysfunction. No evidence of pulmonary hypertension. Patient is improved. I will continue with an additional IV Lasix 40 mg twice a day. We will also add low-dose beta mitzy Lopressor 25 mg by mouth twice a day improved blood pressure control. Continue to monitor. Daily BMP to assess renal function. (4) Hypertension Current Visit: No Status: Acute Assessment and plan: continue med 11/04: Lopressor 25 mg by mouth twice a day added. Continue to monitor. Qualifiers: Hypertension type: essential hypertension Qualified Code(s): I10 - Essential (primary) hypertension (5) Morbid obesity with body mass index (BMI) of 50.0 to 59.9 in adult Current Visit: No Status: Chronic - Time Spent With Patient Total time spent is greater than 50% in coordination of care (as documented) at patient's floor/unit and/or counseling patient: 25 - 35 minutes - Subjective Interval history: Ms. Panchal is a 67 year old female with chronic resp failure on 3 L oxygen , COPD who presents with acute on chronic COPD exacerbation failing outpatient therapy. Patient was recently admitted approximately 10 days ago for similar respiratory exacerbation and was discharged on prednisone and Levaquin. Since discharge she did not feel better and returned to her PCP who continued a longer course of prednisone and Levaquin this past Wednesday. Despite prolonged therapy she continued to experience shortness of breath that was worse today where she needed to bump oxygen up from 3 L to 4 L. She had a low-grade temperature of 99.4 Fahrenheit. Her shortness of breath was worse on exertion particularly when ambulating to her bathroom. Associated with dizziness secondary to shortness of breath. She is productive of clear yellow sputum 5/31: Patient states her breathing is improved today. Very scant amount of yellow sputum. No fevers or chills No chest pain. No nausea, vomiting, diarrhea. Patient's oxygenation is back to baseline at 3 L per nasal cannula. - Constitutional Vitals: Temp Pulse Resp BP Pulse Ox 98.2 F 76 18 145/64 98 11/04/17 07:22 11/04/17 07:22 11/04/17 10:13 11/04/17 07:22 11/04/17 10:13 General appearance: Present: morbidly obese Exam: Mild dyspnea - Head Head exam: Present: atraumatic, normocephalic - Eye Eye exam: Present: PERRL, conjuntiva pink, sclera anicteric Pupils: Present: PERRL - Neck Neck exam general surgery: Present: supple, trachea midline. Absent: lymphadenopathy - Respiratory Respiratory exam: Present: decreased breath sounds - Cardiovascular Cardiovascular exam: Present: RRR, +S1, +S2. Absent: diastolic murmur, gallop, rubs, systolic murmur - GI/Abdominal GI/Abdominal exam: Present: normal bowel sounds, soft, no peritoneal signs. Absent: distended, tenderness - Extremities Exam Extremities exam: Present: pedal edema, warm, radial pulses palpable and symmetrical. Absent: calf tenderness, cyanotic - Neurological Exam Neurological exam: Present: CN II-XII intact, oriented X3, no focal deficits. Absent: pronater drift, facial droop, speech deficit - Skin Skin exam: Present: dry, intact Internal Medicine: Result - Labs CBC & Chem 7: 11/03/17 06:19 11/03/17 06:19 - ABG Interpretation ABG results: ABG ABG pH 7.39 pH Units (7.32-7.45) 11/02/17 17:30 ABG pCO2 77 mmHg (35-45) H* 11/02/17 17:30 ABG pO2 66 mmHg (85-104) L 11/02/17 17:30 ABG O2 Saturation 91 % (95-98) L 11/02/17 17:30 PT/INR, D-dimer PT 12.0 Seconds (9.4-12.1) 11/02/17 17:14 Consult Discharge Plan - Plan Referrals: Rosa Whitt, [employer] PROGRAMMER [Primary Care Provider] -
[2017-11-04] MEDS ORDERED: Azithromycin 500 MG VIAL IVPB ONE (17:51)
[2017-11-04] MEDS: Azithromycin 500 MG in D5% in Water 250 ML IVPB SCH (17:58)
[2017-11-04] MEDS: Insulin DETEMIR 100 UNIT/ML X5UNITS SQ SCH (20:41)
[2017-11-05] MEDS: Ipratropium/Albuterol Neb 3 ML IH SCH ×4 (04:16→22:00)
[2017-11-05] MEDS: *HR* Enoxaparin 40 MG/0.4 ML SYRINGE SQ SCH (05:39)
[2017-11-05] MEDS: Folic Acid 1 MG TABLET PO SCH (08:44)
[2017-11-05] MEDS: predniSONE 20 MG TABLET PO SCH (08:44)
[2017-11-05] MEDS: Lisinopril 20 MG TABLET PO SCH (08:44)
[2017-11-05] MEDS: Aspirin Enteric Coated 81 MG Tablet PO SCH (08:44)
[2017-11-05] MEDS: Furosemide 40 MG/4 ML VIAL IVP SCH ×2 (08:44→16:52)
[2017-11-05] MEDS: Insulin LISPRO 300 UNITS/3 ML VIAL SQ SCH ×4 (08:45→21:27)
[2017-11-05] MEDS: Budesonide/Formoterol 160/4.5 MDI IH SCH (10:01)
[2017-11-05 11:11] LABS: BUN/Creatinine Ratio 27 (6-26); Blood Urea Nitrogen 26 mg/dL (8-23); Calcium 9.4 mg/dL (8.6-10.3); Carbon Dioxide > 45 mEq/L (23-29); Chloride 83 mEq/L (98-107); Glucose 242 mg/dL (70-105); Osmolality,Calculated 301 (280-300); Potassium 3.5 mEq/L (3.5-5.1); Sodium 139 mEq/L (136-145); eGFR For African Americans > 60 (> 60); eGFR For Non-African Americans 59 (> 60)
[2017-11-05 13:54] LABS: Mycoplasma pneumoniae IgG 0.32 U/L (<=0.09)
--- NOTE | 2017-11-05 15:04 | Internal Med Progress Note ---
Date of Encounter: 11/05/17 Time of Encounter: 11:00 - Assessment and plan (1) Acute exacerbation of chronic obstructive airways disease Current Visit: Yes Status: Acute Assessment and plan: IV steroids, IV azithro, duonebs for now check CT chest w/o contrast given indeterminate CXR and repeated failure of therapy 11/03: CT chest without contrast shows new by basilar airspace disease, concerning for atelectasis versus pneumonia. No patient's white blood cell count is normal. He is now afebrile. She is day #2 IV azithromycin. She was given 1 dose of Rocephin yesterday. I am not entirely convinced she has an acute bacterial pneumonia, rather this may be residual versus atelectasis related to her previous course of pneumonia. Due to the recurrence of this or persistence of it this does raise concern for possible aspiration pneumonia as well. I will request a swallow evaluation. Given her clinical improvement, I will not escalate antibiotics presently. She has no documented history of MRSA. We will continue to closely monitor. Pro-calcitonin ordered. If in fact this would be a pneumonia, this should be classified as healthcare associated pneumonia. 11/04: Patient is day #3 IV Rocephin/Azithromycin. Patient at least has a bronchitis. He recently completed 10 days of Levaquin for pneumonia, when she was discharged on October 24. He also was sent home on a 5 day steroid burst. I am not convinced patient has pneumonia. Her white count is normal. She is afebrile. By basilar disease may be residual from previous pneumonia and/or atelectasis or both. Pro-calcitonin is ordered but still pending. 11/05: Patient is day #4 IV Rocephin, IV azithromycin. Minimal response. We will continue treatment for 5-7 days. Pro-calcitonin is still pending. White blood cell count remains normal. Patient continues on prednisone 40 mg by mouth daily. Kidney with aggressive pulmonary toilet. Lasix 40 mg IV twice a day as discussed below. Mucolytic. Monitor (2) Diabetes mellitus Current Visit: No Status: Chronic Assessment and plan: add ISS while on steroids continue oral meds 11/04: Continue to monitor. Adjust insulin as necessary. Prednisone was changed to oral, blood sugars trending down 11/05: Increase Levemir to 20 units subcutaneous every at bedtime. Continue to monitor. Steroids are being weaned. Monitor Qualifiers: Diabetes mellitus type: type 2 Diabetes mellitus complication status: without complication Qualified Code(s): E11.9 - Type 2 diabetes mellitus without complications (3) Acute and chronic respiratory failure with hypoxia Current Visit: No Status: Acute Assessment and plan: treat as above 11/03: Patient had an echo done this month showed essentially a normal study. Her BNP is normal. Abdomen not convinced she has congestive heart failure but if she does not respond to therapy will consider a dose of IV Lasix. She denies a history of sleep apnea although she does fit the habitus. States she has had a study for. This may need to be repeated. Patient has had 2 courses of antibiotics with Levaquin. Still having symptoms. If this persist without explanation, may need pulmonary consultation for consideration of bronchoscopy. Patient also has chronic hypercarbic respiratory failure, suspect due to obesity hypoventilation syndrome, and COPD. Given no significant response to current treatment, I will trial Lasix 40 mg IV twice a day and monitor renal function closely. Despite her normal BNP, I cannot rule out a CHF picture 11/04:. Patient likely has acute on chronic diastolic CHF. Echo done 10/21/2017 showed LVEF of 60-65% with mild diastolic dysfunction. No evidence of pulmonary hypertension. Patient is improved. I will continue with an additional IV Lasix 40 mg twice a day. We will also add low-dose beta mitzy Lopressor 25 mg by mouth twice a day improved blood pressure control. Continue to monitor. Daily BMP to assess renal function. 11/05: Multifactorial acute on chronic restaurant failure, combined hypercarbic and hypoxemic respiratory failure. Outlined above (4) Hypertension Current Visit: No Status: Acute Assessment and plan: continue med 11/04: Lopressor 25 mg by mouth twice a day added. Continue to monitor. 11/05: Blood pressure improved, monitor Qualifiers: Hypertension type: essential hypertension Qualified Code(s): I10 - Essential (primary) hypertension (5) Morbid obesity with body mass index (BMI) of 50.0 to 59.9 in adult Current Visit: No Status: Chronic (6) CHF (congestive heart failure) Current Visit: No Status: Acute Assessment and plan: Acute on chronic diastolic CHF. Last echo in October 2016 showed EF of 60-65% with left ventricular diastolic dysfunction. Cannot rule out pulmonary hypertension as well although echo did not show. Limited study. Qualifiers: Qualified Code(s): I50.32 - Chronic diastolic (congestive) heart failure - Time Spent With Patient Total time spent is greater than 50% in coordination of care (as documented) at patient's floor/unit and/or counseling patient: 25 - 35 minutes - Subjective Interval history: Ms. Panchal is a 67 year old female with chronic resp failure on 3 L oxygen , COPD who presents with acute on chronic COPD exacerbation failing outpatient therapy. Patient was recently admitted approximately 10 days ago for similar respiratory exacerbation and was discharged on prednisone and Levaquin. Since discharge she did not feel better and returned to her PCP who continued a longer course of prednisone and Levaquin this past Wednesday. Despite prolonged therapy she continued to experience shortness of breath that was worse today where she needed to bump oxygen up from 3 L to 4 L. She had a low-grade temperature of 99.4 Fahrenheit. Her shortness of breath was worse on exertion particularly when ambulating to her bathroom. Associated with dizziness secondary to shortness of breath. She is productive of clear yellow sputum 11/04: Patient states her breathing is improved today. Very scant amount of yellow sputum. No fevers or chills No chest pain. No nausea, vomiting, diarrhea. Patient's oxygenation is back to baseline at 3 L per nasal cannula. 11/05: Patient states she still feels short of breath. He remains on 4 L of oxygen per nasal cannula. Her home baseline is 3 L of oxygen. He continues have a cough which is nonproductive. She denies any fevers or chills. No chest pain. No nausea, vomiting, diarrhea. - Constitutional Vitals: Temp Pulse Resp BP Pulse Ox 98.9 F 91 20 110/64 91 11/05/17 14:08 11/05/17 14:08 11/05/17 14:08 11/05/17 14:08 11/05/17 14:08 General appearance: Present: morbidly obese, no acute distress - Head Head exam: Present: atraumatic, normocephalic - Eye Eye exam: Present: PERRL, conjuntiva pink, sclera anicteric Pupils: Present: PERRL - Neck Neck exam general surgery: Present: supple, trachea midline. Absent: lymphadenopathy - Respiratory Respiratory exam: Present: CTAB. Absent: accessory muscle use, rales, rhonchi, wheezes - Cardiovascular Cardiovascular exam: Present: RRR, +S1, +S2. Absent: diastolic murmur, gallop, rubs, systolic murmur - GI/Abdominal GI/Abdominal exam: Present: normal bowel sounds, soft, no peritoneal signs. Absent: distended, tenderness - Extremities Exam Extremities exam: Present: pedal edema (2+ edema bilaterally), warm, radial pulses palpable and symmetrical. Absent: calf tenderness, cyanotic - Neurological Exam Neurological exam: Present: CN II-XII intact, oriented X3, no focal deficits. Absent: pronater drift, facial droop, speech deficit - Skin Skin exam: Present: dry, intact Internal Medicine: Result - Labs CBC & Chem 7: 11/03/17 06:19 11/05/17 10:20 Labs: BMP 11/05/17 10:20 Sodium 139 Potassium 3.5 Chloride 83 L Carbon Dioxide > 45 H* BUN 26 H Creatinine 0.95 Glucose 242 H Calcium 9.4 - ABG Interpretation ABG results: ABG ABG pH 7.39 pH Units (7.32-7.45) 11/02/17 17:30 ABG pCO2 77 mmHg (35-45) H* 11/02/17 17:30 ABG pO2 66 mmHg (85-104) L 11/02/17 17:30 ABG O2 Saturation 91 % (95-98) L 11/02/17 17:30 PT/INR, D-dimer PT 12.0 Seconds (9.4-12.1) 11/02/17 17:14 Consult Discharge Plan - Plan Referrals: Rosa Whitt, [employer] [Primary Care Provider] - 11/12/17 9:00 am
[2017-11-05 15:51] LABS: BUN/Creatinine Ratio 30 (6-26); Blood Urea Nitrogen 28 mg/dL (8-23); Calcium 9.6 mg/dL (8.6-10.3); Carbon Dioxide > 45 mEq/L (23-29); Chloride 83 mEq/L (98-107); Glucose 399 mg/dL (70-105); Osmolality,Calculated 304 (280-300); Potassium 4.4 mEq/L (3.5-5.1); Sodium 136 mEq/L (136-145); eGFR For African Americans > 60 (> 60); eGFR For Non-African Americans 60 (> 60)
[2017-11-05] MEDS: Azithromycin 250 MG TABLET PO SCH (16:54)
[2017-11-05] MEDS ORDERED: Insulin DETEMIR 100 UNIT/ML X5UNITS SQ SCH (21:00)
[2017-11-05] MEDS: Insulin DETEMIR 100 UNIT/ML X5UNITS SQ SCH (21:28)
[2017-11-06] MEDS: Ipratropium/Albuterol Neb 3 ML IH SCH ×4 (04:38→23:23)
[2017-11-06] MEDS: *HR* Enoxaparin 40 MG/0.4 ML SYRINGE SQ SCH (05:26)
[2017-11-06] MEDS: Furosemide 40 MG/4 ML VIAL IVP SCH (07:54)
[2017-11-06] MEDS: Aspirin Enteric Coated 81 MG Tablet PO SCH (07:55)
[2017-11-06] MEDS: Folic Acid 1 MG TABLET PO SCH (07:55)
[2017-11-06] MEDS: Lisinopril 20 MG TABLET PO SCH (07:55)
[2017-11-06] MEDS: predniSONE 20 MG TABLET PO SCH (07:55)
[2017-11-06] MEDS: Insulin LISPRO 300 UNITS/3 ML VIAL SQ SCH ×4 (08:05→20:34)
--- NOTE | 2017-11-06 10:34 | Internal Med Progress Note ---
Date of Encounter: 11/06/17 Time of Encounter: 10:00 - Assessment and plan (1) Acute and chronic respiratory failure with hypoxia Current Visit: No Status: Acute Assessment and plan: treat as above 11/03: Patient had an echo done this month showed essentially a normal study. Her BNP is normal. Abdomen not convinced she has congestive heart failure but if she does not respond to therapy will consider a dose of IV Lasix. She denies a history of sleep apnea although she does fit the habitus. States she has had a study for. This may need to be repeated. Patient has had 2 courses of antibiotics with Levaquin. Still having symptoms. If this persist without explanation, may need pulmonary consultation for consideration of bronchoscopy. Patient also has chronic hypercarbic respiratory failure, suspect due to obesity hypoventilation syndrome, and COPD. Given no significant response to current treatment, I will trial Lasix 40 mg IV twice a day and monitor renal function closely. Despite her normal BNP, I cannot rule out a CHF picture 11/04:. Patient likely has acute on chronic diastolic CHF. Echo done 10/21/2017 showed LVEF of 60-65% with mild diastolic dysfunction. No evidence of pulmonary hypertension. Patient is improved. I will continue with an additional IV Lasix 40 mg twice a day. We will also add low-dose beta mitzy Lopressor 25 mg by mouth twice a day improved blood pressure control. Continue to monitor. Daily BMP to assess renal function. 11/05: Multifactorial acute on chronic resp failure, combined hypercarbic and hypoxemic respiratory failure. Outlined above Scheduled respiratory,? Patient can have nocturnal CPAP or BiPAP. She ultimately needs a repeat sleep study (2) Acute exacerbation of chronic obstructive airways disease Current Visit: Yes Status: Acute Assessment and plan: IV steroids, IV azithro, duonebs for now check CT chest w/o contrast given indeterminate CXR and repeated failure of therapy 11/03: CT chest without contrast shows new by basilar airspace disease, concerning for atelectasis versus pneumonia. No patient's white blood cell count is normal. He is now afebrile. She is day #2 IV azithromycin. She was given 1 dose of Rocephin yesterday. I am not entirely convinced she has an acute bacterial pneumonia, rather this may be residual versus atelectasis related to her previous course of pneumonia. Due to the recurrence of this or persistence of it this does raise concern for possible aspiration pneumonia as well. I will request a swallow evaluation. Given her clinical improvement, I will not escalate antibiotics presently. She has no documented history of MRSA. We will continue to closely monitor. Pro-calcitonin ordered. If in fact this would be a pneumonia, this should be classified as healthcare associated pneumonia. 11/04: Patient is day #3 IV Rocephin/Azithromycin. Patient at least has a bronchitis. He recently completed 10 days of Levaquin for pneumonia, when she was discharged on October 24. He also was sent home on a 5 day steroid burst. I am not convinced patient has pneumonia. Her white count is normal. She is afebrile. By basilar disease may be residual from previous pneumonia and/or atelectasis or both. Pro-calcitonin is ordered but still pending. 11/06: Patient is day #5 po azithromycin. Improved today. Patient continues on prednisone 40 mg by mouth daily with planned slow taper over next 10-14 days. Continue with aggressive pulmonary toilet. (3) Diabetes mellitus Current Visit: No Status: Chronic Assessment and plan: add ISS while on steroids continue oral meds 11/04: Continue to monitor. Adjust insulin as necessary. Prednisone was changed to oral, blood sugars trending down 11/06: Increase Levemir to 30 units subcutaneous every at bedtime. Continue to monitor. Steroids are being weaned. Monitor Qualifiers: Diabetes mellitus type: type 2 Diabetes mellitus complication status: without complication Qualified Code(s): E11.9 - Type 2 diabetes mellitus without complications (4) Hypertension Current Visit: No Status: Acute Assessment and plan: continue med 11/04: Lopressor 25 mg by mouth twice a day added. Continue to monitor. 11/06: Blood pressure improved, monitor Qualifiers: Hypertension type: essential hypertension Qualified Code(s): I10 - Essential (primary) hypertension (5) Morbid obesity with body mass index (BMI) of 50.0 to 59.9 in adult Current Visit: No Status: Chronic (6) CHF (congestive heart failure) Current Visit: No Status: Acute Assessment and plan: Acute on chronic diastolic CHF. Last echo in October 2016 showed EF of 60-65% with left ventricular diastolic dysfunction. Cannot rule out pulmonary hypertension as well although echo did not show. Limited study. 11/06: Patient I believe is compensated. Stopped IV Lasix. Continue to monitor. Lopressor 25 mg by mouth twice a day Lisinopril 20 mg by mouth daily Uptitrate as blood pressure and renal function allows. Qualifiers: Qualified Code(s): I50.32 - Chronic diastolic (congestive) heart failure (7) Community acquired pneumonia Current Visit: Yes Status: Acute Assessment and plan: Patient was already treated as an outpatient for [address] on admission of her chest without contrast showed bibasilar airspace disease versus atelectasis. Throughout her hospital stay she has had no fever, no leukocytosis. A pro-calcitonin was ordered but is still pending. As mentioned above she is currently day 5 of azithromycin by mouth. I do back she has a bronchitis. I am not entirely convinced she has bacterial pneumonia. She is responding to current treatment. - Time Spent With Patient Total time spent is greater than 50% in coordination of care (as documented) at patient's floor/unit and/or counseling patient: 25 - 35 minutes - Subjective Interval history: Ms. Panchal is a 67 year old female with chronic resp failure on 3 L oxygen , COPD who presents with acute on chronic COPD exacerbation failing outpatient therapy. Patient was recently admitted approximately 10 days ago for similar respiratory exacerbation and was discharged on prednisone and Levaquin. Since discharge she did not feel better and returned to her PCP who continued a longer course of prednisone and Levaquin this past Wednesday. Despite prolonged therapy she continued to experience shortness of breath that was worse today where she needed to bump oxygen up from 3 L to 4 L. She had a low-grade temperature of 99.4 Fahrenheit. Her shortness of breath was worse on exertion particularly when ambulating to her bathroom. Associated with dizziness secondary to shortness of breath. She is productive of clear yellow sputum 11/04: Patient states her breathing is improved today. Very scant amount of yellow sputum. No fevers or chills No chest pain. No nausea, vomiting, diarrhea. Patient's oxygenation is back to baseline at 3 L per nasal cannula. 11/06: Patient states she feels much better today. She continues on 4 L or fracture per nasal cannula. Chest pain or shortness of breath. No fevers or chills. No nausea, vomiting, diarrhea. She has had minimal diuresis with IV Lasix. She did use BiPAP yesterday with improvement in her symptoms. She again states she has no history of sleep apnea. I do suspect she does have it. We will discuss with respiratory therapy - Constitutional Vitals: Temp Pulse Resp BP Pulse Ox 97.6 F 84 16 145/71 93 11/06/17 08:07 11/06/17 08:07 11/06/17 08:07 11/06/17 08:07 11/06/17 09:00 General appearance: Present: morbidly obese, no acute distress - Head Head exam: Present: atraumatic, normocephalic - Eye Eye exam: Present: PERRL, conjuntiva pink, sclera anicteric Pupils: Present: PERRL - Neck Neck exam general surgery: Present: supple, trachea midline. Absent: lymphadenopathy - Respiratory Respiratory exam: Present: decreased breath sounds. Absent: accessory muscle use, rales, rhonchi, wheezes - Cardiovascular Cardiovascular exam: Present: RRR, +S1, +S2. Absent: diastolic murmur, gallop, rubs, systolic murmur - GI/Abdominal GI/Abdominal exam: Present: normal bowel sounds, soft, no peritoneal signs. Absent: distended, tenderness - Extremities Exam Extremities exam: Present: pedal edema, warm, radial pulses palpable and symmetrical. Absent: calf tenderness, cyanotic - Neurological Exam Neurological exam: Present: CN II-XII intact, oriented X3, no focal deficits. Absent: pronater drift, facial droop, speech deficit - Skin Skin exam: Present: dry, intact Internal Medicine: Result - Labs CBC & Chem 7: 11/03/17 06:19 11/05/17 15:02 Labs: BMP 11/05/17 11/05/17 10:20 15:02 Sodium 139 136 Potassium 3.5 4.4 D Chloride 83 L 83 L Carbon Dioxide > 45 H* > 45 H* BUN 26 H 28 H Creatinine 0.95 0.94 Glucose 242 H 399 H Calcium 9.4 9.6 - ABG Interpretation ABG results: ABG ABG pH 7.39 pH Units (7.32-7.45) 11/02/17 17:30 ABG pCO2 77 mmHg (35-45) H* 11/02/17 17:30 ABG pO2 66 mmHg (85-104) L 11/02/17 17:30 ABG O2 Saturation 91 % (95-98) L 11/02/17 17:30 PT/INR, D-dimer PT 12.0 Seconds (9.4-12.1) 11/02/17 17:14 Consult Discharge Plan - Plan Referrals: Rosa Whitt, [facility] [Primary Care Provider] - 11/12/17 9:00 am
[2017-11-06 10:38] LABS: Basophils % 0.2 %; Eosinophils # 0.5 K/mcL (0.0-0.6); Eosinophils % 5.3 %; Hematocrit 37.6 % (35.3-44.9); Hemoglobin 11.9 g/dL (11.5-15.4); Immature Granulocytes % 0.5 % (0-4); Lymphocytes # 1.1 K/mcL (0.6-4.6); Lymphocytes % 12.1 %; Mean Corpuscular HGB Conc 31.6 g/dL (31.6-35.5); Mean Corpuscular Hemoglobin 27.2 pg (28.0-33.3); Mean Corpuscular Volume 85.8 fL (83.0-100.0); Mean Platelet Volume 12.2 fL (9.4-12.4); Monocytes # 0.5 K/mcL (0.0-1.3); Monocytes % 5.3 %; Neutrophils # 7.1 K/mcL (1.6-8.9); Platelet Count 162 K/mcL (140-400); Red Blood Count 4.38 M/mcL (3.82-4.97); Red Cell Distribution Width 13.9 % (11.5-14.5); Segmented Neutrophils % 76.6 %
[2017-11-06] MEDS: Budesonide/Formoterol 160/4.5 MDI IH SCH (10:56)
[2017-11-06 11:18] LABS: Blood Urea Nitrogen 27 mg/dL (8-23); Calcium 9.6 mg/dL (8.6-10.3); Carbon Dioxide > 45 mEq/L (23-29); Chloride 85 mEq/L (98-107); Glucose 178 mg/dL (70-105); Osmolality,Calculated 296 (280-300); Potassium 3.6 mEq/L (3.5-5.1); Sodium 138 mEq/L (136-145)
[2017-11-06 11:58] LABS: BUN/Creatinine Ratio 30 (6-26); eGFR For African Americans > 60 (> 60); eGFR For Non-African Americans > 60 (> 60)
[2017-11-06] MEDS: Azithromycin 250 MG TABLET PO SCH (16:57)
[2017-11-06] MEDS: Insulin DETEMIR 100 UNIT/ML X5UNITS SQ SCH (20:33)
[2017-11-07] MEDS: Ipratropium/Albuterol Neb 3 ML IH SCH ×4 (04:45→20:18)
[2017-11-07] MEDS: *HR* Enoxaparin 40 MG/0.4 ML SYRINGE SQ SCH (06:01)
[2017-11-07] MEDS: Folic Acid 1 MG TABLET PO SCH (08:06)
[2017-11-07] MEDS: predniSONE 20 MG TABLET PO SCH (08:06)
[2017-11-07] MEDS: Aspirin Enteric Coated 81 MG Tablet PO SCH (08:06)
[2017-11-07] MEDS: Lisinopril 20 MG TABLET PO SCH (08:06)
[2017-11-07] MEDS: Insulin LISPRO 300 UNITS/3 ML VIAL SQ SCH ×4 (08:12→21:38)
[2017-11-07] MEDS: Budesonide/Formoterol 160/4.5 MDI IH SCH (10:27)
--- NOTE | 2017-11-07 10:56 | Discharge Summary ---
Orders not resulted at time of discharge: Pending orders 11/03/17 12:40 Procalcitonin Routine Date of Encounter: 11/07/17 Time of Encounter: 10:00 - Discharge Diagnosis (1) Acute and chronic respiratory failure with hypoxia Priority: Primary Status: Acute Assessment and Plan: treat as above 11/03: Patient had an echo done this month showed essentially a normal study. Her BNP is normal. Abdomen not convinced she has congestive heart failure but if she does not respond to therapy will consider a dose of IV Lasix. She denies a history of sleep apnea although she does fit the habitus. States she has had a study for. This may need to be repeated. Patient has had 2 courses of antibiotics with Levaquin. Still having symptoms. If this persist without explanation, may need pulmonary consultation for consideration of bronchoscopy. Patient also has chronic hypercarbic respiratory failure, suspect due to obesity hypoventilation syndrome, and COPD. Given no significant response to current treatment, I will trial Lasix 40 mg IV twice a day and monitor renal function closely. Despite her normal BNP, I cannot rule out a CHF picture 11/04:. Patient likely has acute on chronic diastolic CHF. Echo done 10/21/2017 showed LVEF of 60-65% with mild diastolic dysfunction. No evidence of pulmonary hypertension. Patient is improved. I will continue with an additional IV Lasix 40 mg twice a day. We will also add low-dose beta mitzy Lopressor 25 mg by mouth twice a day improved blood pressure control. Continue to monitor. Daily BMP to assess renal function. 11/07: Multifactorial acute on chronic resp failure, combined hypercarbic and hypoxemic respiratory failure. Outlined above Patient is currently satting 94% on 4 L of oxygen. She need to titrate with goal O2 saturations of 89-91%. Pt is otherwise doing reasonably well and stable for discharge once arrangements are made. Would recommend nocturnal CPAP or BiPAP if able to set up. He needs a sleep study on follow-up. I discussed the case with the care team and unfortunately pt cannot be discharged today due to home health needs. (2) Acute exacerbation of chronic obstructive airways disease Priority: Secondary Status: Acute Assessment and Plan: IV steroids, IV azithro, duonebs for now check CT chest w/o contrast given indeterminate CXR and repeated failure of therapy 11/03: CT chest without contrast shows new by basilar airspace disease, concerning for atelectasis versus pneumonia. No patient's white blood cell count is normal. He is now afebrile. She is day #2 IV azithromycin. She was given 1 dose of Rocephin yesterday. I am not entirely convinced she has an acute bacterial pneumonia, rather this may be residual versus atelectasis related to her previous course of pneumonia. Due to the recurrence of this or persistence of it this does raise concern for possible aspiration pneumonia as well. I will request a swallow evaluation. Given her clinical improvement, I will not escalate antibiotics presently. She has no documented history of MRSA. We will continue to closely monitor. Pro-calcitonin ordered. If in fact this would be a pneumonia, this should be classified as healthcare associated pneumonia. 11/04: Patient is day #3 IV Rocephin/Azithromycin. Patient at least has a bronchitis. He recently completed 10 days of Levaquin for pneumonia, when she was discharged on October 24. He also was sent home on a 5 day steroid burst. I am not convinced patient has pneumonia. Her white count is normal. She is afebrile. By basilar disease may be residual from previous pneumonia and/or atelectasis or both. Pro-calcitonin is ordered but still pending. 11/06: Patient is day #5 po azithromycin. Improved today. Patient continues on prednisone 40 mg by mouth daily with planned slow taper over next 10-14 days. Continue with aggressive pulmonary toilet. 11/07: Azithromycin is completed. This was treatment for suspected acute bronchitis. I do not suspect she has a acute bacterial pneumonia. A pro- calcitonin was ordered many days ago but has not returned back. She was responded well to azithromycin alone, remains afebrile. (3) Diabetes mellitus Priority: Secondary Status: Chronic Assessment and Plan: add ISS while on steroids continue oral meds 11/04: Continue to monitor. Adjust insulin as necessary. Prednisone was changed to oral, blood sugars trending down 11/06: Increase Levemir to 30 units subcutaneous every at bedtime. Continue to monitor. Steroids are being weaned. Monitor 11/07: Improving glycemic control. Steroids being tapered. Qualifiers: Diabetes mellitus type: type 2 Diabetes mellitus complication status: without complication Qualified Code(s): E11.9 - Type 2 diabetes mellitus without complications (4) Hypertension Priority: Secondary Status: Acute Assessment and Plan: continue med 11/04: Lopressor 25 mg by mouth twice a day added. Continue to monitor. 11/07: Blood pressure improved, monitor. Mildly elevated today but overall stable Continue Lopressor 25 mg by mouth twice a day, Zestril 20 mg by mouth daily Qualifiers: Hypertension type: essential hypertension Qualified Code(s): I10 - Essential (primary) hypertension (5) Morbid obesity with body mass index (BMI) of 50.0 to 59.9 in adult Priority: Secondary Status: Chronic (6) CHF (congestive heart failure) Priority: Secondary Status: Acute Assessment and Plan: Acute on chronic diastolic CHF. Last echo in October 2016 showed EF of 60-65% with left ventricular diastolic dysfunction. Cannot rule out pulmonary hypertension as well although echo did not show. Limited study. 11/07: Patient I believe is compensated. Stopped IV Lasix. Continue to monitor. Lopressor 25 mg by mouth twice a day Lisinopril 20 mg by mouth daily Uptitrate as blood pressure and renal function allows. Updated echo ordered Qualifiers: Qualified Code(s): I50.32 - Chronic diastolic (congestive) heart failure (7) Community acquired pneumonia Priority: Secondary Status: Acute Assessment and Plan: Patient was already treated as an outpatient for [address] on admission of her chest without contrast showed bibasilar airspace disease versus atelectasis. Throughout her hospital stay she has had no fever, no leukocytosis. A pro-calcitonin was ordered but is still pending. As mentioned above she is currently day 5 of azithromycin by mouth. I do back she has a bronchitis. I am not entirely convinced she has bacterial pneumonia. She is responding to current treatment. 11/07: Has now completed 5 days of oral azithromycin for suspected acute bronchitis I do not suspect she has an acute bacterial pneumonia. She will need short-term follow-up, and a follow-up chest x-ray in 4 weeks. Hospital course: Ms. Panchal is a 67 year old female with multiple medical problems including morbid obesity, chronic hypoxemic and hypercarbic restrictive failure, COPD on home O2 2 L per nasal cannula, insulin-dependent diabetes mellitus, hypertension , chronic diastolic CHF. She was recently treated for pneumonia with a proximally 10 days of Levaquin prior to admission. She was also treated for a COPD exacerbation with a prednisone taper. Despite this on November 03 she represented to the hospital with acute hypoxemic pressure a failure and a low- grade fever of 99.4. She was requiring increased oxygen of 3-4 L per nasal cannula. She had a CT scan of her chest without contrast on admission which showed bibasilar airspace disease versus atelectasis. He was otherwise afebrile , white blood cell count was normal. BUN and creatinine was 9 over 0.77, with a serum bicarbonate of 44, consistent with her history of chronic respiratory acidosis with metabolic compensation. Patient was treated with ongoing steroids and azithromycin for suspected bronchitis. She was not given additional antibiotics to cover pneumonia. She responded well to this therapy. It was felt to have acute on chronic diastolic CHF for which she was treated with IV Lasix. She did not have a significant diuresis with this but nonetheless continued to improve. Fortunately her renal function tolerated this. Patient continued to improve to where today (11/07) she is now stable for discharge, but due to home health needs, and attempt to arrange for possible CPAP at night, she will not be discharged until November 08. Patient has had a sleep study in the past per her report which she told was negative. Nonetheless it is strongly suspected that patient has obstructive sleep apnea, as well as chronic obesity hypoventilation syndrome. We did do a trial of BiPAP well and the hospital and she responded well to this. Pending further discharge arrangements, anticipate she will be discharged on 11/08/2017. Addendum as well be added by my partner on follow-up visit. Discharge discussed with: patient - Time Spent with Patient Total time spent providing and/or coordinating discharge services: Greater than 30 minutes (37) - Discharge Medications Home Medications: Albuterol Sulfate [Ventolin Hfa] 2 puff IH Q4H PRN 08/28/16 [History] Ferrous Sulfate [Iron] 325 mg PO DAILY 08/28/16 [History] Folic Acid 1 mg PO DAILY 08/28/16 [History] Lisinopril [Zestril] 20 mg PO DAILY 08/28/16 [History] Umeclidinium [place] [Incruse Ellipta] 1 puff IH DAILY 08/28/16 [History] Metformin HCl [Metformin HCl ER] 500 mg PO BID #60 tab 09/02/16 [Rx] glipiZIDE [Glucotrol] 5 mg PO BIDWM #60 tablet 09/02/16 [Rx] Albuterol Neb [Proventil Neb] 2.5 mg IH TID PRN 10/18/17 [History] Aspirin [Lo-Dose Aspirin EC] 81 mg PO DAILY 10/18/17 [History] Atorvastatin Calcium [Lipitor] 80 mg PO HS 10/18/17 [History] Fluticasone/Salmeterol [Advair Hfa 230-21 Mcg Inhaler] 2 puff IH DAILY 10/18/17 [History] levoFLOXacin [Levaquin] 750 mg PO DAILY #5 tablet 10/24/17 [Rx] predniSONE [Prednisone] 50 mg PO DAILY 11/02/17 [History] Allergies/Adverse Reactions: 3 Allergy/AdvReac Type Severity Reaction Status Date / Time Hydromorphone [From Dilaudid] AdvReac HYPERTENSION,DIZZINESS,HOT Verified 10/18 20:11 FLASHES Date of admission: 11/02/17 23:05 Primary care physician: Rosa Whitt CNP Consults: 11/05/17 09:21 Consult to Physical Therapy [CONS] Routine Comment: Evaluate, develop and implement POC Reason for Consult: decond Does patient have active BEDREST order?: No Is patient medically & hemodynamically stable?: Yes Patient assessed for mobility or mobilized this visit?: No Discharging clinician: Yusef Ayala Anticipated date of discharge: 11/08/17 - Constitutional Vitals: Temp Pulse Resp BP Pulse Ox 98.5 F 74 16 151/78 94 11/07/17 07:35 11/07/17 07:35 11/07/17 07:35 11/07/17 07:35 11/07/17 08:19 General appearance: Present: morbidly obese, no acute distress - Head Head exam: Present: atraumatic, normocephalic - Eye Eye exam: Present: PERRL, conjuntiva pink, sclera anicteric Pupils: Present: PERRL - Neck Neck exam general surgery: Present: supple, trachea midline. Absent: lymphadenopathy - Respiratory Respiratory exam: Present: decreased breath sounds. Absent: accessory muscle use, rales, rhonchi, wheezes - Cardiovascular Cardiovascular exam: Present: RRR, +S1, +S2. Absent: diastolic murmur, gallop, rubs, systolic murmur - GI/Abdominal GI/Abdominal exam: Present: normal bowel sounds, soft, no peritoneal signs. Absent: distended, tenderness - Extremities Exam Extremities exam: Present: pedal edema, warm, radial pulses palpable and symmetrical. Absent: calf tenderness, cyanotic - Neurological Exam Neurological exam: Present: CN II-XII intact, oriented X3, no focal deficits. Absent: pronater drift, facial droop, speech deficit - Skin Skin exam: Present: dry, intact - Patient Status Disposition: Home Health Service Condition: Fair - Discharge Instructions Instructions: Chronic Obstructive Pulmonary Disease (GEN) Follow Up With: Rosa Whitt CNP [Primary Care Provider] - 11/12/17 9:00 am Additional Instructions: Sleep study for suspected sleep apnea - Diet and Activity Activity: as per physical therapy Diet: advance to your usual diet, diabetic diet, low fat, low cholesterol, low salt diet
[2017-11-07] MEDS: Insulin DETEMIR 100 UNIT/ML X5UNITS SQ SCH (21:38)
[2017-11-07] MEDS ORDERED: clonazePAM 0.5 MG TABLET PO SCH (23:15)
[2017-11-08] MEDS: Ipratropium/Albuterol Neb 3 ML IH SCH ×4 (04:08→23:07)
[2017-11-08] MEDS: *HR* Enoxaparin 40 MG/0.4 ML SYRINGE SQ SCH (06:36)
[2017-11-08] MEDS: Insulin LISPRO 300 UNITS/3 ML VIAL SQ SCH ×4 (08:44→21:11)
[2017-11-08] MEDS: Aspirin Enteric Coated 81 MG Tablet PO SCH (08:45)
[2017-11-08] MEDS: predniSONE 20 MG TABLET PO SCH (08:45)
[2017-11-08] MEDS: Lisinopril 20 MG TABLET PO SCH (08:46)
[2017-11-08] MEDS: Folic Acid 1 MG TABLET PO SCH (08:46)
[2017-11-08] MEDS: Budesonide/Formoterol 160/4.5 MDI IH SCH (10:18)
--- NOTE | 2017-11-08 11:43 | Internal Med Progress Note ---
Date of Encounter: 11/08/17 Time of Encounter: 11:39 - Assessment and plan (1) Acute exacerbation of chronic obstructive airways disease Current Visit: Yes Status: Acute Assessment and plan: Improving cont PO steroids Duoneb and O2 (2) Acute and chronic respiratory failure with hypoxia Current Visit: No Status: Acute Assessment and plan: She does have acute on chronic hyper capnea too would get benefit with BiPAP to go home she does have CPAP at home Ordered over night BiPAP study Cont other PO meds (3) Community acquired pneumonia Current Visit: Yes Status: Acute Assessment and plan: Treated as an outpatient for [address] on admission of her chest without contrast showed bibasilar airspace disease versus atelectasis. Throughout her hospital stay she has had no fever, no leukocytosis. Finished 5 days of Azithromycin too here (4) CHF (congestive heart failure) Current Visit: No Status: Acute Assessment and plan: Improved cont PO meds Qualifiers: Qualified Code(s): I50.32 - Chronic diastolic (congestive) heart failure (5) Diabetes mellitus Current Visit: No Status: Chronic Assessment and plan: On ISS ADA diet Qualifiers: Diabetes mellitus type: type 2 Diabetes mellitus complication status: without complication Qualified Code(s): E11.9 - Type 2 diabetes mellitus without complications (6) Morbid obesity with body mass index (BMI) of 50.0 to 59.9 in adult Current Visit: No Status: Chronic Assessment and plan: counseled to loose weight (7) Hypertension Current Visit: No Status: Acute Assessment and plan: continue med 11/04: Lopressor 25 mg by mouth twice a day added. Continue to monitor. 11/07: Blood pressure improved, monitor. Mildly elevated today but overall stable Continue Lopressor 25 mg by mouth twice a day, Zestril 20 mg by mouth daily Qualifiers: Hypertension type: essential hypertension Qualified Code(s): I10 - Essential (primary) hypertension - Time Spent With Patient Total time spent is greater than 50% in coordination of care (as documented) at patient's floor/unit and/or counseling patient: - Subjective Interval history: Pt did c/o an episode of SOB last night. However now she feels better. Still has cough with clear expectoration. Denied any CP. pt does have chronic hypercapenic resp failure. does get benefit with BiPAP to go home. She did not have BiPAP study done last night. So will order for the study tonight. - Constitutional Vitals: Temp Pulse Resp BP Pulse Ox 98.1 F 71 19 145/63 96 11/08/17 05:04 11/08/17 05:04 11/08/17 05:04 11/08/17 05:04 11/08/17 08:40 General appearance: Present: A&O X 3, morbidly obese, no acute distress - Head Head exam: Present: atraumatic, normal inspection - Neck Neck exam general surgery: Present: supple - Respiratory Respiratory exam: Present: decreased breath sounds, wheezes (mild to moderate). Absent: rales, respiratory distress, rhonchi - Cardiovascular Cardiovascular exam: Present: RRR, +S1, +S2. Absent: tachycardia - GI/Abdominal GI/Abdominal exam: Present: normal bowel sounds, soft. Absent: rebound, rigid, tenderness - Extremities Exam Extremities exam: Absent: calf tenderness, pedal edema, tenderness - Back Exam Back exam: Absent: CVA tenderness (L), CVA tenderness (R) - Neurological Exam Neurological exam: Present: alert, oriented X3 - Psychiatric Psychiatric exam: Present: normal affect, normal mood Internal Medicine: Result - Labs CBC & Chem 7: 11/06/17 10:24 11/06/17 10:24 - ABG Interpretation ABG results: ABG ABG pH 7.39 pH Units (7.32-7.45) 11/02/17 17:30 ABG pCO2 77 mmHg (35-45) H* 11/02/17 17:30 ABG pO2 66 mmHg (85-104) L 11/02/17 17:30 ABG O2 Saturation 91 % (95-98) L 11/02/17 17:30 PT/INR, D-dimer PT 12.0 Seconds (9.4-12.1) 11/02/17 17:14 - VTE Documentation of Mechanical Device: Intermittent pneumatic compression device Consult Discharge Plan - Plan Instructions: Chronic Obstructive Pulmonary Disease (GEN) Additional Instructions: Sleep study for suspected sleep apnea Referrals: Rosa Whitt WOMEN'S MINISTRY DIRECTOR [Primary Care Provider] - 11/12/17 9:00 am Prescriptions: GuaiFENesin ER [Mucinex] 600 mg PO BID 10 Days #20 tbbp.12hr predniSONE [PredniSONE] 10 mg PO DAILY 9 Days #16 tablet
[2017-11-08] MEDS: Insulin DETEMIR 100 UNIT/ML X5UNITS SQ SCH (21:10)
[2017-11-09] MEDS: Ipratropium/Albuterol Neb 3 ML IH SCH ×3 (04:11→15:35)
[2017-11-09] MEDS: *HR* Enoxaparin 40 MG/0.4 ML SYRINGE SQ SCH (05:57)
[2017-11-09] MEDS: Aspirin Enteric Coated 81 MG Tablet PO SCH (08:39)
[2017-11-09] MEDS: Insulin LISPRO 300 UNITS/3 ML VIAL SQ SCH ×3 (08:39→17:18)
[2017-11-09] MEDS: Folic Acid 1 MG TABLET PO SCH (08:40)
[2017-11-09] MEDS: Lisinopril 20 MG TABLET PO SCH (08:41)
[2017-11-09] MEDS ORDERED: predniSONE 10 MG TABLET PO SCH (09:00)
--- NOTE | 2017-11-09 10:18 | Physician Discharge Referral ---
Home Health/Hosp Referral Info Transfer to: Home Health - Respiratory Orders Smoking Cessation: Smoking cessation has been advised. For more information, call the [place] Tobacco Quit Line at 2-608-KEGA-NOW. - Services Needed Following services are medically necessary services: Nursing, Home Health Aide, Physical Therapy, Occupational Therapy - Transfer Medications Prescriptions: GuaiFENesin ER [Mucinex] 600 mg PO BID 10 Days #20 tbbp.12hr predniSONE [PredniSONE] 10 mg PO DAILY 9 Days #16 tablet Home Medications: Albuterol Sulfate [Ventolin Hfa] 2 puff IH Q4H PRN 08/28/16 [History] Ferrous Sulfate [Iron] 325 mg PO DAILY 08/28/16 [History] Folic Acid 1 mg PO DAILY 08/28/16 [History] Lisinopril [Zestril] 20 mg PO DAILY 08/28/16 [History] Umeclidinium [place] [Incruse Ellipta] 1 puff IH DAILY 08/28/16 [History] Metformin HCl [Metformin HCl ER] 500 mg PO BID #60 tab 09/02/16 [Rx] glipiZIDE [Glucotrol] 5 mg PO BIDWM #60 tablet 09/02/16 [Rx] Albuterol Neb [Proventil Neb] 2.5 mg IH TID PRN 10/18/17 [History] Aspirin [Lo-Dose Aspirin EC] 81 mg PO DAILY 10/18/17 [History] Atorvastatin Calcium [Lipitor] 80 mg PO HS 10/18/17 [History] Fluticasone/Salmeterol [Advair Hfa 230-21 Mcg Inhaler] 2 puff IH DAILY 10/18/17 [History] GuaiFENesin ER [Mucinex] 600 mg PO BID 10 Days #20 tbbp.12hr 11/07/17 [Rx] Ipratropium/Albuterol Neb [Duoneb] 3 ml IH QIDR inhsol 11/07/17 [Rx] Metoprolol [Lopressor] 25 mg PO BID tablet 11/07/17 [Rx] predniSONE [PredniSONE] 10 mg PO DAILY 9 Days #16 tablet 11/07/17 [Rx] Allergies/Adverse Reactions: 3 Allergy/AdvReac Type Severity Reaction Status Date / Time Hydromorphone [From Dilaudid] AdvReac HYPERTENSION,DIZZINESS,HOT Verified 10/18 20:11 FLASHES Certification: Further, I certify that my clinical findings support that this patient is homebound (i.e. absences from home require considerable and taxing effort and are for medical reasons or taoist services or infrequently or short duration when for other reasons) because: Homebound Reason: Patient requires assistance of a person or device to safely leave home Attestation: My signature below is to certify that this patient is under my care and that I, or nurse practitioner, or a physician's guest services assistant working with me, has a face-to -face encounter with this patient.
[2017-11-09] MEDS: Budesonide/Formoterol 160/4.5 MDI IH SCH (11:01)
[2017-11-09 15:54] VITALS: BP 155/76
== END 2017-11-09 19:03 | disposition home health service (06) | DRG 190 ==
LOC: 3ANU 16:00 → EMEROO 16:00 → 3ANU 23:00 → SUATTDRO 23:05
PROVIDERS: ADMIT Internal Medicine Hematology & Oncology; ATTEND Hospitalist

== ENCOUNTER 2021-06-19 14:54 | Inpatient (IN) ==
[2021-06-19 17:26] LABS: Basophils % 0.3 %; Hematocrit 37.9 % (35.3-44.9); Hemoglobin 12.2 g/dL (11.5-15.4); Immature Granulocytes % 0.3 % (0-4); Lymphocytes # 0.8 K/mcL (0.6-4.6); Lymphocytes % 21.9 %; Mean Corpuscular HGB Conc 32.2 g/dL (31.6-35.5); Mean Corpuscular Hemoglobin 30.4 pg (28.0-33.3); Mean Corpuscular Volume 94.5 fL (83.0-100.0); Mean Platelet Volume 12.8 fL (9.4-12.4); Monocytes # 0.3 K/mcL (0.0-1.3); Monocytes % 8.6 %; Neutrophils # 2.7 K/mcL (1.6-8.9); Platelet Count 114 K/mcL (140-400); Red Blood Count 4.01 M/mcL (3.82-4.97); Red Cell Distribution Width 12.1 % (11.5-14.5); Segmented Neutrophils % 68.9 %; White Blood Count 3.8 K/mcL (4.3-11.1)
[2021-06-19 17:41] LABS: INR 1.3; Prothrombin Time 14.5 Seconds (9.4-12.1)
[2021-06-19 17:44] LABS: Activated Partial Thrombo Time 24.9 Seconds (26.0-36.0)
[2021-06-19 17:52] LABS: BUN/Creatinine Ratio 10 (6-26); Blood Urea Nitrogen 8 mg/dL (8-23); Calcium 9.3 mg/dL (8.6-10.3); Carbon Dioxide 34 mEq/L (23-29); Chloride 96 mEq/L (98-107); Glucose 131 mg/dL (70-105); Osmolality,Calculated 282 (280-300); Sodium 136 mEq/L (136-145); Troponin I < 0.03 ng/mL (< 0.04); eGFR For African Americans > 60 (> 60); eGFR For Non-African Americans > 60 (> 60)
[2021-06-19 18:00] LABS: Influenza A PCR Negative (Negative); Influenza B PCR Negative (Negative); Resp. Syncytial Virus PCR Negative (Negative)
[2021-06-19 18:09] LABS: SARS-CoV-2 by PCR (In House) Positive (Negative)
[2021-06-19] MEDS ORDERED: Albuterol 2.5 MG/3 ML NEBULIZER IH ONE (18:17)
[2021-06-19 19:17] LABS: VBG HCO3 37 mEq/L (21-27); VBG PCO2 67 mmHg (41-51); VBG PH 7.35 pH Units (7.32-7.42); VBG PO2 40 mmHg (25-50)
[2021-06-19] MEDS ORDERED: dexAMETHasone 4 MG TABLET PO ONE (20:15)
[2021-06-20] MEDS ORDERED: Acetaminophen 325 MG TABLET PO PRN (06:12)
[2021-06-20] MEDS ORDERED: Naloxone 0.4 MG/ML INJ IVP PRN (06:12)
[2021-06-20] MEDS ORDERED: Ondansetron ODT 4 MG TAB.RAPDIS SL PRN (06:12)
[2021-06-20] MEDS ORDERED: D5% in Water 1,000 ML IVC PRN (06:49)
[2021-06-20] MEDS ORDERED: *HR* Dextrose 50 % in Water (Syg) 50 ML SYRINGE IVP PRN (06:49)
[2021-06-20] MEDS ORDERED: Dextrose Gel 15 GM/37.5 ML TUBE PO PRN ×2 (06:49)
[2021-06-20] MEDS ORDERED: Ipratropium 1 PUFF INHALER IH PRN (07:06)
[2021-06-20] MEDS: Insulin LISPRO 300 UNITS/3 ML VIAL SUBQ SCH ×3 (07:16→17:07)
[2021-06-20] MEDS ORDERED: Insulin LISPRO 300 UNITS/3 ML VIAL SUBQ SCH (08:00)
[2021-06-20] MEDS: Azithromycin 250 MG TABLET PO SCH (10:29)
[2021-06-20] MEDS: Nystatin POWDER 30 GM BOTTLE TP SCH ×2 (10:29→21:27)
[2021-06-20] MEDS: *HR* Heparin 5,000 UNIT/ML VIAL SQ SCH (17:07)
[2021-06-20] MEDS ORDERED: dexAMETHasone 4 MG TABLET PO ONE (18:18)
[2021-06-20 19:38] LABS: Hematocrit 33.8 % (35.3-44.9); Hemoglobin 10.9 g/dL (11.5-15.4); Lymphocytes # 0.7 K/mcL (0.6-4.6); Lymphocytes % 24.4 %; Mean Corpuscular HGB Conc 32.2 g/dL (31.6-35.5); Mean Corpuscular Hemoglobin 29.3 pg (28.0-33.3); Mean Corpuscular Volume 90.9 fL (83.0-100.0); Mean Platelet Volume 12.4 fL (9.4-12.4); Monocytes # 0.3 K/mcL (0.0-1.3); Monocytes % 10.5 %; Neutrophils # 1.9 K/mcL (1.6-8.9); Platelet Count 136 K/mcL (140-400); Red Blood Count 3.72 M/mcL (3.82-4.97); Red Cell Distribution Width 12.2 % (11.5-14.5); Segmented Neutrophils % 65.1 %
[2021-06-20 20:04] LABS: Alanine Aminotransferase 14 Units/L (7-52); Albumin 2.5 g/dL (3.5-5.7); Albumin/Globulin Ratio 0.8 (1.1-2.2); Alkaline Phosphatase 82 Units/L (34-104); Aspartate Amino Transferase 37 Units/L (13-39); BUN/Creatinine Ratio 14 (6-26); Bilirubin,Total 0.9 mg/dL (0.3-1.0); Blood Urea Nitrogen 14 mg/dL (8-23); C-Reactive Protein 43 mg/L (Less than 10); Calcium 9.3 mg/dL (8.6-10.3); Carbon Dioxide 34 mEq/L (23-29); Chloride 96 mEq/L (98-107); Globulin 3.3 g/dL (2.4-3.5); Glucose 180 mg/dL (70-105); Lactate Dehydrogenase 134 Units/L (140-271); Osmolality,Calculated 281 (280-300); Phosphorous 1.9 mg/dL (2.7-4.5); Potassium 4.1 mEq/L (3.5-5.1); Sodium 133 mEq/L (136-145); Total Protein 5.8 g/dL (6.4-8.9); Troponin I < 0.03 ng/mL (< 0.04); eGFR For African Americans > 60 (> 60); eGFR For Non-African Americans 56 (> 60)
[2021-06-21 03:04] LABS: Alanine Aminotransferase 14 Units/L (7-52); Albumin 2.3 g/dL (3.5-5.7); Albumin/Globulin Ratio 0.7 (1.1-2.2); Alkaline Phosphatase 74 Units/L (34-104); Aspartate Amino Transferase 36 Units/L (13-39); BUN/Creatinine Ratio 16 (6-26); Bilirubin,Total 0.8 mg/dL (0.3-1.0); Blood Urea Nitrogen 16 mg/dL (8-23); Calcium 9.2 mg/dL (8.6-10.3); Carbon Dioxide 34 mEq/L (23-29); Chloride 97 mEq/L (98-107); Globulin 3.1 g/dL (2.4-3.5); Glucose 153 mg/dL (70-105); Osmolality,Calculated 282 (280-300); Potassium 3.9 mEq/L (3.5-5.1); Sodium 134 mEq/L (136-145); Total Protein 5.4 g/dL (6.4-8.9); eGFR For African Americans > 60 (> 60); eGFR For Non-African Americans 54 (> 60)
[2021-06-21 03:08] LABS: Hematocrit 32.3 % (35.3-44.9); Hemoglobin 10.6 g/dL (11.5-15.4); Immature Granulocytes % 0.3 % (0-4); Lymphocytes # 0.9 K/mcL (0.6-4.6); Lymphocytes % 29.5 %; Mean Corpuscular HGB Conc 32.8 g/dL (31.6-35.5); Mean Corpuscular Hemoglobin 30.5 pg (28.0-33.3); Mean Corpuscular Volume 92.8 fL (83.0-100.0); Mean Platelet Volume 12.4 fL (9.4-12.4); Monocytes # 0.3 K/mcL (0.0-1.3); Monocytes % 9.4 %; Neutrophils # 1.8 K/mcL (1.6-8.9); Platelet Count 120 K/mcL (140-400); Red Blood Count 3.48 M/mcL (3.82-4.97); Red Cell Distribution Width 12.3 % (11.5-14.5); Segmented Neutrophils % 60.8 %
[2021-06-21] MEDS: *HR* Heparin 5,000 UNIT/ML VIAL SQ SCH ×2 (06:01→17:23)
[2021-06-21] MEDS: Insulin LISPRO 300 UNITS/3 ML VIAL SUBQ SCH ×3 (09:25→16:48)
[2021-06-21] MEDS: Azithromycin 250 MG TABLET PO SCH (09:27)
[2021-06-21] MEDS: Nystatin POWDER 30 GM BOTTLE TP SCH ×2 (09:28→19:30)
[2021-06-22 05:05] LABS: Basophils % 0.3 %; Eosinophils % 0.3 %; Hematocrit 32.4 % (35.3-44.9); Hemoglobin 10.1 g/dL (11.5-15.4); Lymphocytes # 1.6 K/mcL (0.6-4.6); Mean Corpuscular HGB Conc 31.2 g/dL (31.6-35.5); Mean Corpuscular Hemoglobin 29.2 pg (28.0-33.3); Mean Corpuscular Volume 93.6 fL (83.0-100.0); Monocytes # 0.4 K/mcL (0.0-1.3); Monocytes % 11.1 %; Neutrophils # 1.8 K/mcL (1.6-8.9); Platelet Count 122 K/mcL (140-400); Red Blood Count 3.46 M/mcL (3.82-4.97); Red Cell Distribution Width 12.3 % (11.5-14.5); Segmented Neutrophils % 46.3 %; White Blood Count 3.9 K/mcL (4.3-11.1)
[2021-06-22 05:28] LABS: Alanine Aminotransferase 20 Units/L (7-52); Albumin 2.4 g/dL (3.5-5.7); Albumin/Globulin Ratio 0.8 (1.1-2.2); Alkaline Phosphatase 70 Units/L (34-104); Aspartate Amino Transferase 62 Units/L (13-39); BUN/Creatinine Ratio 16 (6-26); Bilirubin,Total 0.8 mg/dL (0.3-1.0); Blood Urea Nitrogen 13 mg/dL (8-23); Calcium 9.1 mg/dL (8.6-10.3); Carbon Dioxide 36 mEq/L (23-29); Chloride 100 mEq/L (98-107); Glucose 88 mg/dL (70-105); Osmolality,Calculated 284 (280-300); Potassium 3.6 mEq/L (3.5-5.1); Sodium 137 mEq/L (136-145); Total Protein 5.4 g/dL (6.4-8.9); eGFR For African Americans > 60 (> 60); eGFR For Non-African Americans > 60 (> 60)
[2021-06-22] MEDS: *HR* Heparin 5,000 UNIT/ML VIAL SQ SCH ×2 (05:34→17:52)
[2021-06-22] MEDS: Insulin LISPRO 300 UNITS/3 ML VIAL SUBQ SCH ×3 (07:26→17:51)
[2021-06-22] MEDS: Azithromycin 250 MG TABLET PO SCH (09:12)
[2021-06-22] MEDS: Nystatin POWDER 30 GM BOTTLE TP SCH ×2 (09:13→20:03)
[2021-06-23] MEDS: *HR* Heparin 5,000 UNIT/ML VIAL SQ SCH ×2 (05:00→17:30)
[2021-06-23] MEDS: Insulin LISPRO 300 UNITS/3 ML VIAL SUBQ SCH ×3 (07:14→17:30)
[2021-06-23] MEDS ORDERED: Furosemide 40 MG/4 ML VIAL IVP ONE (08:15)
[2021-06-23 08:30] LABS: Basophils % 0.2 %; Eosinophils % 0.7 %; Hematocrit 35.8 % (35.3-44.9); Hemoglobin 11.1 g/dL (11.5-15.4); Immature Granulocytes % 0.2 % (0-4); Lymphocytes # 1.5 K/mcL (0.6-4.6); Lymphocytes % 35.5 %; Mean Corpuscular Hemoglobin 29.4 pg (28.0-33.3); Mean Corpuscular Volume 94.7 fL (83.0-100.0); Mean Platelet Volume 11.9 fL (9.4-12.4); Monocytes # 0.6 K/mcL (0.0-1.3); Monocytes % 13.7 %; Platelet Count 132 K/mcL (140-400); Red Blood Count 3.78 M/mcL (3.82-4.97); Red Cell Distribution Width 12.4 % (11.5-14.5); Segmented Neutrophils % 49.7 %; White Blood Count 4.1 K/mcL (4.3-11.1)
[2021-06-23] MEDS: Azithromycin 250 MG TABLET PO SCH (08:36)
[2021-06-23] MEDS: Nystatin POWDER 30 GM BOTTLE TP SCH ×2 (08:36→20:15)
[2021-06-23 09:52] LABS: Alanine Aminotransferase 19 Units/L (7-52); Albumin 2.5 g/dL (3.5-5.7); Albumin/Globulin Ratio 0.8 (1.1-2.2); Alkaline Phosphatase 82 Units/L (34-104); Aspartate Amino Transferase 47 Units/L (13-39); BUN/Creatinine Ratio 15 (6-26); Blood Urea Nitrogen 11 mg/dL (8-23); Calcium 9.2 mg/dL (8.6-10.3); Carbon Dioxide 38 mEq/L (23-29); Chloride 98 mEq/L (98-107); Globulin 3.2 g/dL (2.4-3.5); Glucose 100 mg/dL (70-105); Osmolality,Calculated 285 (280-300); Potassium 3.9 mEq/L (3.5-5.1); Sodium 138 mEq/L (136-145); Total Protein 5.7 g/dL (6.4-8.9); eGFR For African Americans > 60 (> 60); eGFR For Non-African Americans > 60 (> 60)
[2021-06-24 01:10] LABS: Hematocrit 32.2 % (35.3-44.9); Immature Platelets 6.3 % (1.1-6.1); Mean Corpuscular HGB Conc 31.1 g/dL (31.6-35.5); Mean Corpuscular Hemoglobin 28.9 pg (28.0-33.3); Mean Corpuscular Volume 93.1 fL (83.0-100.0); Red Blood Count 3.46 M/mcL (3.82-4.97); Red Cell Distribution Width 12.1 % (11.5-14.5)
[2021-06-24 01:24] LABS: BUN/Creatinine Ratio 16 (6-26); Blood Urea Nitrogen 14 mg/dL (8-23); Calcium 8.8 mg/dL (8.6-10.3); Carbon Dioxide 37 mEq/L (23-29); Chloride 98 mEq/L (98-107); Glucose 185 mg/dL (70-105); Osmolality,Calculated 287 (280-300); Potassium 3.6 mEq/L (3.5-5.1); Sodium 136 mEq/L (136-145); eGFR For African Americans > 60 (> 60); eGFR For Non-African Americans > 60 (> 60)
[2021-06-24] MEDS: *HR* Heparin 5,000 UNIT/ML VIAL SQ SCH (05:57)
[2021-06-24] MEDS: Insulin LISPRO 300 UNITS/3 ML VIAL SUBQ SCH ×2 (08:12→11:57)
[2021-06-24] MEDS ORDERED: Furosemide 20 MG/2 ML VIAL IVP SCH (09:00)
[2021-06-24] MEDS: Nystatin POWDER 30 GM BOTTLE TP SCH (09:56)
[2021-06-24] MEDS: Azithromycin 250 MG TABLET PO SCH (09:56)
[2021-06-24 14:23] VITALS: BP 123/76; PULSE 70; TEMP 97.6; O2SAT 96
== END 2021-06-24 15:54 | disposition other institution (70) | DRG 177 ==
LOC: 3BNU 14:54 → EMEROOARM 14:54 → 3BNU 06-20 04:21 → SUATTDRO 06-21 14:50
PROVIDERS: ADMIT Student in an Organized Health Care Education/Training Program; ATTEND Internal Medicine